=== PATIENT | male | born 1945 | race Caucasian/White ===

== ENCOUNTER 2016-06-30 17:54 | Inpatient (IN) | payer MEDICARE, MEDICAID ==
[~2016-06-30] VITALS: Ht 180.3 cm; Wt 58.0 kg
[~2016-06-30 17:54] MED LIST: ASPI-231 PO; CALC500C3 PO; LEVO500T3 PO; TRAM50TA2 PO; [UNRECOGNIZED DRUG - CODE] PO
[2016-06-30 18:49] LABS: Basophils # (auto) 0 uL; Basophils % (auto) 0.7 % (0.0-2.0); Eosinophils # (auto) 0.1 uL; Eosinophils % (auto) 2.8 % (0.0-7.0); Hematocrit 40.5 % (41.0-53.0); Hemoglobin 13.1 g/dL (13.5-17.5); Lymphocytes # (auto) 2.5 uL; Lymphocytes % (auto) 49.2 % (10.0-50.0); Mean Corpuscular Hemoglobin 29.1 pg (28.0-32.0); Mean Corpuscular Hgb Conc. 32.4 g/dL (32.0-36.0); Mean Platelet Volume 8.7 fL (7.4-10.4); Monocytes # (auto) 0.8 uL; Monocytes % (auto) 16.4 % (0.0-12.0); Neutrophils # (auto) 1.6 uL; Neutrophils % (auto) 30.9 % (37.0-80.0); Platelet Count (auto) 248 10^3/uL (140-450); Red Cell Distribution Width 14.7 % (11.6-16.0); White Blood Cell 5.1 10^3/uL (4.4-10.8)
[2016-06-30 19:14] LABS: Albumin 3.7 g/dL (3.4-5.0); Bilirubin, Total 0.3 mg/dL (0.2-1.0); Calcium 8.7 mg/dL (8.5-10.1); Potassium 4.2 mmol/L (3.5-5.1); Total Protein 7.4 g/dL (6.4-8.2)
[2016-07-01] MEDS ORDERED: ACET325T82 PO ×2 (06:22)
[2016-07-01] MEDS ORDERED: HYDROcodone-ACET 5/325MG TAB PO PRN (06:30)
[2016-07-01] MEDS ORDERED: ALBUTEROL SULF 2.5 MG/0.5ML(0.5%) NEB SOLN NEB PRN (06:30)
[2016-07-01] MEDS ORDERED: ACETAMINOPHEN 325 MG TAB PO PRN (06:30)
[2016-07-01] MEDS ORDERED: DOCUSATE SOD 100 MG CAP PO PRN (06:30)
[2016-07-01] MEDS ORDERED: ONDANSETRON HCL 4 MG/2 ML VIAL IV PRN (06:30)
[2016-07-01] MEDS ORDERED: IPRATROPIUM BROM 0.5 MG/2.5ML INH SOL NEB PRN (06:30)
[2016-07-01] MEDS ORDERED: traMADol HCL 50 MG TAB PO PRN (06:30)
[2016-07-01 07:58] VITALS: BP 110/74
[2016-07-01] MEDS: ENOXAPARIN SOD 40 MG/0.4 ML SYRINGE SC SCH (09:51)
[2016-07-01] MEDS: FAMOTIDINE 20 MG TAB PO SCH ×2 (09:51→21:46)
[2016-07-01] MEDS: ASPirin 81 mg TAB PO SCH (09:51)
[2016-07-01 13:00] VITALS: BP 120/65
[2016-07-01 15:59] VITALS: BP 120/65
[2016-07-01 17:00] VITALS: BP 104/67
[2016-07-01 21:12] VITALS: BP 101/63
[2016-07-01] MEDS: ATORVASTATIN 20 MG TAB PO SCH (21:46)
[2016-07-01] MEDS: FOLIC ACID 1 MG TAB PO SCH (21:46)
[2016-07-01] MEDS: CYANOCOBALAMIN 500 MCG TAB PO SCH (21:46)
[2016-07-01] MEDS: PYRIDOXINE HCL 50 MG TAB PO SCH (21:48)
[2016-07-02 05:22] VITALS: BP 102/59
[2016-07-02 06:09] LABS: Basophils # (auto) 0 uL; Basophils % (auto) 0.3 % (0.0-2.0); Eosinophils # (auto) 0.1 uL; Eosinophils % (auto) 1.9 % (0.0-7.0); Hematocrit 42.3 % (41.0-53.0); Hemoglobin 13.6 g/dL (13.5-17.5); Lymphocytes # (auto) 3.5 uL; Lymphocytes % (auto) 45.5 % (10.0-50.0); Mean Corpuscular Hgb Conc. 32.2 g/dL (32.0-36.0); Mean Corpuscular Volume 90.1 fL (80.0-100.0); Mean Platelet Volume 8.7 fL (7.4-10.4); Monocytes # (auto) 0.9 uL; Monocytes % (auto) 11.8 % (0.0-12.0); Neutrophils # (auto) 3.1 uL; Neutrophils % (auto) 40.5 % (37.0-80.0); Platelet Count (auto) 242 10^3/uL (140-450); Red Cell Distribution Width 14.9 % (11.6-16.0); White Blood Cell 7.7 10^3/uL (4.4-10.8)
[2016-07-02 06:28] LABS: Albumin 3.5 g/dL (3.4-5.0); BUN/Creatinine Ratio 17.6; Bilirubin, Total 0.4 mg/dL (0.2-1.0); Calcium 8.6 mg/dL (8.5-10.1); Potassium 4.3 mmol/L (3.5-5.1); Total Protein 7.2 g/dL (6.4-8.2)
[2016-07-02 08:21] LABS: Urine Bilirubin Negative (Negative); Urine Blood Negative /uL (Negative); Urine Color Yellow (Yellow); Urine Glucose Normal (Normal); Urine Ketone Negative (Negative); Urine RBC <1 /hpf (0 - 3); Urine Urobilinogen Normal (Negative); Urine pH 5.5 (5.0-8.0)
[2016-07-02 08:22] LABS: Urine Nitrite POSITIVE (Negative)
[2016-07-02 09:00] VITALS: BP_SYST 98; BP_SYST 99; BP_DIAS 68; BP_DIAS 76
[2016-07-02] MEDS: FAMOTIDINE 20 MG TAB PO SCH ×2 (10:00→20:59)
[2016-07-02] MEDS: PYRIDOXINE HCL 50 MG TAB PO SCH (10:00)
[2016-07-02] MEDS: ENOXAPARIN SOD 40 MG/0.4 ML SYRINGE SC SCH (10:48)
[2016-07-02] MEDS: ASPirin 81 mg TAB PO SCH (10:49)
[2016-07-02] MEDS: FOLIC ACID 1 MG TAB PO SCH (10:49)
[2016-07-02] MEDS: CYANOCOBALAMIN 500 MCG TAB PO SCH (10:49)
[2016-07-02] MEDS ORDERED: CIPR-217 PO ×2 (11:54)
[2016-07-02] MEDS ORDERED: ATOR10TA PO ×2 (11:54)
[2016-07-02 13:00] VITALS: BP 98/68
[2016-07-02 16:36] VITALS: BP 113/65
[2016-07-02] MEDS: ATORVASTATIN 20 MG TAB PO SCH (20:59)
[2016-07-02 21:55] VITALS: BP 118/76
[2016-07-02] MEDS: guaiFENesin-DEXTROMETHORPHAN 5ML SYR PO PRN (23:29)
[2016-07-03 05:30] VITALS: BP 100/67
[2016-07-03] MEDS: guaiFENesin-DEXTROMETHORPHAN 5ML SYR PO PRN (08:07)
[2016-07-03] MEDS: CYANOCOBALAMIN 500 MCG TAB PO SCH (08:08)
[2016-07-03] MEDS: FOLIC ACID 1 MG TAB PO SCH (08:08)
[2016-07-03] MEDS: PYRIDOXINE HCL 50 MG TAB PO SCH (08:08)
[2016-07-03] MEDS: ENOXAPARIN SOD 40 MG/0.4 ML SYRINGE SC SCH (08:09)
[2016-07-03] MEDS: FAMOTIDINE 20 MG TAB PO SCH (08:09)
[2016-07-03] MEDS: ASPirin 81 mg TAB PO SCH (08:09)
[2016-07-03 09:11] VITALS: BP 101/56
[2016-07-03 13:00] VITALS: BP 111/69
== END 2016-07-03 15:10 | disposition home or self-care (01) | DRG 191 ==
LOC: ER 17:57 → OVERFLOW 17:58 → TELE-E-ADS 07-01 07:53 → TELE-CENTR 07-01 11:57 → CENTRAL 07-03 02:49
PROVIDERS: ADMIT Nurse Practitioner; ATTEND Internal Medicine
DX: J44.1 Chronic obstructive pulmonary disease with (acute) exacerbation (principal); N39.0 Urinary tract infection, site not specified; R53.1 Weakness; H57.04 Mydriasis; M19.90 Unspecified osteoarthritis, unspecified site; G93.89 Other specified disorders of brain; D63.8 Anemia in other chronic diseases classified elsewhere; K21.9 Gastro-esophageal reflux disease without esophagitis; J45.909 Unspecified asthma, uncomplicated; A53.9 Syphilis, unspecified; Z79.82 Long term (current) use of aspirin; Z82.49 Family history of ischemic heart disease and other diseases of the circulatory system; Z83.3 Family history of diabetes mellitus; Z86.73 Personal history of transient ischemic attack (TIA), and cerebral infarction without residual deficits; Z82.0 Family history of epilepsy and other diseases of the nervous system; Z87.891 Personal history of nicotine dependence; Z88.0 Allergy status to penicillin; Z88.8 Allergy status to other drugs, medicaments and biological substances
CPT/HCPCS: 36415; 70450; 70551; 71020; 80053; 80061; 81001; 83090; 83690; 85025; 93005; 93306; 93886

== ENCOUNTER 2016-07-04 20:17 | Inpatient (IN) | payer MEDICARE, MEDICAID ==
[~2016-07-04] VITALS: Ht 180.3 cm; Wt 58.4 kg
[~2016-07-04 20:17] MED LIST changes: +ACET325T82 PO; +ATOR10TA PO; +CIPR-217 PO
[2016-07-04] MEDS ORDERED: ALBUTEROL SULF 2.5 MG/0.5ML(0.5%) NEB SOLN HHN STA (20:56)
[2016-07-04] MEDS ORDERED: IPRATROPIUM BROM 0.5 MG/2.5ML INH SOL NEB ONE (21:00)
[2016-07-04] MEDS ORDERED: methylPREDNISolone SOD SUCC 125 MG/2 ML VL IV ONE (21:00)
[2016-07-04] MEDS ORDERED: LEVOFLOXACIN 500MG 100 ML IV ONE (21:00)
[2016-07-04 21:03] LABS: Basophils # (auto) 0 uL; Basophils % (auto) 0.2 % (0.0-2.0); Eosinophils # (auto) 0 uL; Eosinophils % (auto) 0.1 % (0.0-7.0); Hematocrit 40.6 % (41.0-53.0); Hemoglobin 13.2 g/dL (13.5-17.5); Lymphocytes # (auto) 3.4 uL; Lymphocytes % (auto) 22.4 % (10.0-50.0); Mean Corpuscular Hgb Conc. 32.5 g/dL (32.0-36.0); Mean Corpuscular Volume 89.4 fL (80.0-100.0); Mean Platelet Volume 8.8 fL (7.4-10.4); Monocytes # (auto) 1.1 uL; Neutrophils # (auto) 10.7 uL; Neutrophils % (auto) 70.3 % (37.0-80.0); Platelet Count (auto) 219 10^3/uL (140-450); Red Cell Distribution Width 14.6 % (11.6-16.0); White Blood Cell 15.3 10^3/uL (4.4-10.8)
[2016-07-04 21:20] LABS: INR 1.05 (0.9-1.15); Partial Thromboplastin Time 33.4 sec (22.64-33.71); Prothrombin Time 10.8 sec (9.37-12.3)
[2016-07-04 21:33] LABS: Albumin 3.8 g/dL (3.4-5.0); BUN/Creatinine Ratio 26.4; Calcium 8.8 mg/dL (8.5-10.1); Potassium 4.2 mmol/L (3.5-5.1)
[2016-07-04 21:35] LABS: Bilirubin, Total 1.3 mg/dL (0.2-1.0); Total Protein 8.3 g/dL (6.4-8.2)
[2016-07-04] MEDS ORDERED: ONDANSETRON HCL 4 MG/2 ML VIAL IV PRN (22:30)
[2016-07-04] MEDS ORDERED: MORPHINE SULF INJ 2 MG/ML SYRINGE 1ML IV PRN (22:30)
[2016-07-04 23:30] VITALS: BP 131/75
[2016-07-05] VITALS (7 sets, daily range): BP systolic 102–147; BP diastolic 61–77
[2016-07-05] MEDS: SODIUM CHLORIDE 0.9% 1,000 ML IV SCH ×3 (00:45→11:33)
[2016-07-05] MEDS: IPRATROPIUM BROM 0.5 MG/2.5ML INH SOL NEB SCH ×6 (02:00→22:12)
[2016-07-05] MEDS: ALBUTEROL SULF 2.5 MG/0.5ML(0.5%) NEB SOLN NEB SCH ×6 (02:00→22:12)
[2016-07-05 06:01] LABS: Basophils # (auto) 0 uL; Basophils % (auto) 0.1 % (0.0-2.0); Eosinophils # (auto) 0 uL; Hematocrit 39.1 % (41.0-53.0); Hemoglobin 12.7 g/dL (13.5-17.5); Lymphocytes # (auto) 1.3 uL; Lymphocytes % (auto) 10.5 % (10.0-50.0); Mean Corpuscular Hemoglobin 29.3 pg (28.0-32.0); Mean Corpuscular Hgb Conc. 32.5 g/dL (32.0-36.0); Mean Corpuscular Volume 90.1 fL (80.0-100.0); Mean Platelet Volume 8.8 fL (7.4-10.4); Monocytes # (auto) 0.2 uL; Monocytes % (auto) 1.4 % (0.0-12.0); Neutrophils # (auto) 10.7 uL; Platelet Count (auto) 191 10^3/uL (140-450); Red Cell Distribution Width 14.1 % (11.6-16.0); White Blood Cell 12.1 10^3/uL (4.4-10.8)
[2016-07-05 06:27] LABS: Albumin 3.3 g/dL (3.4-5.0); BUN/Creatinine Ratio 26.5; Bilirubin, Total 0.8 mg/dL (0.2-1.0); Calcium 8.6 mg/dL (8.5-10.1); Potassium 5.1 mmol/L (3.5-5.1); Total Protein 7.1 g/dL (6.4-8.2)
[2016-07-05] MEDS: ASPirin 81 mg TAB PO SCH (09:55)
[2016-07-05] MEDS: ENOXAPARIN SOD 40 MG/0.4 ML SYRINGE SC SCH (09:56)
[2016-07-05] MEDS: PANTOPRAZOLE SODIUM 40 MG/10 ML VIAL IV SCH (09:56)
[2016-07-05] MEDS ORDERED: methylPREDNISolone SOD SUCC 40 MG/ML VL IV SCH (10:00)
[2016-07-05] MEDS ORDERED: ENOXAPARIN SOD 30 MG/0.3 ML SYRINGE SC SCH (10:00)
[2016-07-05] MEDS: LEVOFLOXACIN 500MG 100 ML IV SCH (20:47)
[2016-07-05] MEDS: ATORVASTATIN 20 MG TAB PO SCH (21:33)
[2016-07-05] MEDS: methylPREDNISolone SOD SUCC 40 MG/ML VL IV SCH (21:33)
[2016-07-06] MEDS: IPRATROPIUM BROM 0.5 MG/2.5ML INH SOL NEB SCH ×6 (02:19→21:54)
[2016-07-06] MEDS: ALBUTEROL SULF 2.5 MG/0.5ML(0.5%) NEB SOLN NEB SCH ×6 (02:19→21:54)
[2016-07-06] MEDS: SODIUM CHLORIDE 0.9% 1,000 ML IV SCH ×2 (04:13→20:53)
[2016-07-06 05:13] LABS: Basophils # (auto) 0.1 uL; Basophils % (auto) 0.4 % (0.0-2.0); Eosinophils # (auto) 0 uL; Hemoglobin 12.1 g/dL (13.5-17.5); Lymphocytes # (auto) 0.7 uL; Lymphocytes % (auto) 4.4 % (10.0-50.0); Mean Corpuscular Hemoglobin 30.3 pg (28.0-32.0); Mean Corpuscular Hgb Conc. 33.5 g/dL (32.0-36.0); Mean Corpuscular Volume 90.6 fL (80.0-100.0); Mean Platelet Volume 8.8 fL (7.4-10.4); Monocytes # (auto) 0.4 uL; Monocytes % (auto) 2.3 % (0.0-12.0); Neutrophils # (auto) 14.2 uL; Neutrophils % (auto) 92.9 % (37.0-80.0); Platelet Count (auto) 190 10^3/uL (140-450); Red Cell Distribution Width 13.3 % (11.6-16.0); SUSPECT VIEW TRANSMISSION; White Blood Cell 15.4 10^3/uL (4.4-10.8)
[2016-07-06 05:44] VITALS: BP 100/68
[2016-07-06 08:35] VITALS: BP 147/75
[2016-07-06] MEDS: ASPirin 81 mg TAB PO SCH (10:29)
[2016-07-06] MEDS: PANTOPRAZOLE SODIUM 40 MG/10 ML VIAL IV SCH (10:29)
[2016-07-06] MEDS: methylPREDNISolone SOD SUCC 40 MG/ML VL IV SCH ×2 (10:30→21:47)
[2016-07-06] MEDS: ENOXAPARIN SOD 40 MG/0.4 ML SYRINGE SC SCH (10:30)
[2016-07-06 12:30] VITALS: BP 110/57
[2016-07-06 16:24] VITALS: BP 112/72
[2016-07-06] MEDS: LEVOFLOXACIN 500MG 100 ML IV SCH (20:28)
[2016-07-06] MEDS: ATORVASTATIN 20 MG TAB PO SCH (21:47)
[2016-07-06 22:00] VITALS: BP 97/62
[2016-07-07] MEDS: IPRATROPIUM BROM 0.5 MG/2.5ML INH SOL NEB SCH ×3 (02:29→10:36)
[2016-07-07] MEDS: ALBUTEROL SULF 2.5 MG/0.5ML(0.5%) NEB SOLN NEB SCH ×3 (02:29→10:36)
[2016-07-07 05:57] VITALS: BP 119/66
[2016-07-07 06:28] LABS: Basophils # (auto) 0 uL; Eosinophils # (auto) 0 uL; Hematocrit 35.2 % (41.0-53.0); Hemoglobin 11.3 g/dL (13.5-17.5); Lymphocytes # (auto) 0.8 uL; Lymphocytes % (auto) 6.5 % (10.0-50.0); Mean Corpuscular Hemoglobin 29.1 pg (28.0-32.0); Mean Corpuscular Hgb Conc. 32.1 g/dL (32.0-36.0); Mean Corpuscular Volume 90.5 fL (80.0-100.0); Mean Platelet Volume 9.1 fL (7.4-10.4); Monocytes # (auto) 0.4 uL; Monocytes % (auto) 3.1 % (0.0-12.0); Neutrophils # (auto) 11.3 uL; Neutrophils % (auto) 90.4 % (37.0-80.0); Platelet Count (auto) 244 10^3/uL (140-450); Red Cell Distribution Width 14.4 % (11.6-16.0); White Blood Cell 12.6 10^3/uL (4.4-10.8)
[2016-07-07 06:41] LABS: INR 1.03 (0.9-1.15); Prothrombin Time 10.6 sec (9.37-12.3)
[2016-07-07 06:52] LABS: BUN/Creatinine Ratio 24.4; Calcium 8.5 mg/dL (8.5-10.1); Magnesium 2.4 mg/dL (1.6-2.6); Potassium 4.8 mmol/L (3.5-5.1)
[2016-07-07 09:23] VITALS: BP 112/77
[2016-07-07] MEDS: PANTOPRAZOLE SODIUM 40 MG/10 ML VIAL IV SCH (10:27)
[2016-07-07] MEDS: ASPirin 81 mg TAB PO SCH (10:28)
[2016-07-07] MEDS: ENOXAPARIN SOD 40 MG/0.4 ML SYRINGE SC SCH (10:28)
[2016-07-07] MEDS: methylPREDNISolone SOD SUCC 40 MG/ML VL IV SCH (10:28)
[2016-07-07 12:33] VITALS: BP 101/66
[2016-07-07 12:42] VITALS: BP 101/66
[2016-07-07] MEDS: SODIUM CHLORIDE 0.9% 1,000 ML IV SCH (13:33)
[2016-07-07] MEDS ORDERED: DOPamine 1600MCG/ML 250 ML IV ONE (13:44)
== END 2016-07-07 14:45 | disposition home or self-care (01) | DRG 193 ==
LOC: ER 20:22 → OVERFLOW 20:23 → CENTRAL 07-05 00:07
PROVIDERS: ADMIT Family Medicine; ATTEND Internal Medicine
DX: J18.9 Pneumonia, unspecified organism (principal); J96.00 Acute respiratory failure, unspecified whether with hypoxia or hypercapnia; J44.0 Chronic obstructive pulmonary disease with (acute) lower respiratory infection; J20.9 Acute bronchitis, unspecified; J45.909 Unspecified asthma, uncomplicated; E78.5 Hyperlipidemia, unspecified; M19.90 Unspecified osteoarthritis, unspecified site; I25.2 Old myocardial infarction; Z87.440 Personal history of urinary (tract) infections; Z86.73 Personal history of transient ischemic attack (TIA), and cerebral infarction without residual deficits; Z59.0 Homelessness
CPT/HCPCS: 36415; 70450; 71010; 80048; 80053; 80061; 83605; 83735; 84484; 85025; 85049; 85379; 85610; 85730; 87040; 87070; 87081; 87205; 87400; 93005; 94640; 94761; 96365; 96375; C9113; G0434; J1956

== ENCOUNTER 2016-07-30 19:50 | Emergency (ER) | payer MEDICARE, MEDICAID ==
[~2016-07-30] VITALS: Ht 180.3 cm; Wt 63.5 kg
[~2016-07-30 19:50] MED LIST changes: -LEVO500T3 PO; -TRAM50TA2 PO; -[UNRECOGNIZED DRUG - CODE] PO
[2016-07-30 21:53] LABS: Basophils # (auto) 0 uL; Basophils % (auto) 0.3 % (0.0-2.0); Eosinophils # (auto) 0.2 uL; Eosinophils % (auto) 2.5 % (0.0-7.0); Hematocrit 36.3 % (41.0-53.0); Hemoglobin 11.4 g/dL (13.5-17.5); Lymphocytes # (auto) 2.7 uL; Mean Corpuscular Hemoglobin 28.8 pg (28.0-32.0); Mean Corpuscular Hgb Conc. 31.5 g/dL (32.0-36.0); Mean Corpuscular Volume 91.4 fL (80.0-100.0); Mean Platelet Volume 8.9 fL (7.4-10.4); Monocytes # (auto) 0.8 uL; Monocytes % (auto) 8.2 % (0.0-12.0); Neutrophils # (auto) 6.1 uL; Platelet Count (auto) 211 10^3/uL (140-450); Red Cell Distribution Width 15.3 % (11.6-16.0); White Blood Cell 9.9 10^3/uL (4.4-10.8)
[2016-07-30 22:16] LABS: Albumin 3.4 g/dL (3.4-5.0); Bilirubin, Total 0.9 mg/dL (0.2-1.0); Calcium 8.3 mg/dL (8.5-10.1); Magnesium 2.4 mg/dL (1.6-2.6)
[2016-07-31 03:47] VITALS: BP 104/70
== END 2016-07-31 03:51 | disposition home or self-care (01) ==
LOC: ER 20:22
DX: K59.00 Constipation, unspecified (principal); M19.90 Unspecified osteoarthritis, unspecified site; J45.909 Unspecified asthma, uncomplicated; J44.9 Chronic obstructive pulmonary disease, unspecified; E78.5 Hyperlipidemia, unspecified; I25.2 Old myocardial infarction; Z86.73 Personal history of transient ischemic attack (TIA), and cerebral infarction without residual deficits; Z88.0 Allergy status to penicillin; Z88.8 Allergy status to other drugs, medicaments and biological substances
CPT/HCPCS: 36415; 74176; 80053; 83735; 84484; 85025; 93005

== ENCOUNTER 2016-08-01 18:43 | Emergency (ER) | payer MEDICARE, MEDICAID ==
[~2016-08-01] VITALS: Ht 180.3 cm; Wt 64.4 kg
[2016-08-01 22:42] LABS: Basophils # (auto) 0 uL; Basophils % (auto) 0.6 % (0.0-2.0); Eosinophils # (auto) 0.2 uL; Eosinophils % (auto) 3.7 % (0.0-7.0); Hemoglobin 11.3 g/dL (13.5-17.5); Lymphocytes # (auto) 1.9 uL; Lymphocytes % (auto) 30.5 % (10.0-50.0); Mean Corpuscular Hemoglobin 28.6 pg (28.0-32.0); Mean Corpuscular Hgb Conc. 31.3 g/dL (32.0-36.0); Mean Corpuscular Volume 91.4 fL (80.0-100.0); Monocytes # (auto) 0.7 uL; Monocytes % (auto) 10.9 % (0.0-12.0); Neutrophils # (auto) 3.4 uL; Neutrophils % (auto) 54.3 % (37.0-80.0); Platelet Count (auto) 229 10^3/uL (140-450); Red Cell Distribution Width 15.3 % (11.6-16.0); White Blood Cell 6.3 10^3/uL (4.4-10.8)
[2016-08-01] MEDS ORDERED: MORPHINE SULF INJ 2 MG/ML SYRINGE 1ML IV ONE (22:45)
[2016-08-01] MEDS ORDERED: ONDANSETRON HCL 4 MG/2 ML VIAL IV ONE (22:45)
[2016-08-01 22:57] LABS: Albumin 3.4 g/dL (3.4-5.0); BUN/Creatinine Ratio 19.8; Calcium 8.2 mg/dL (8.5-10.1); Potassium 3.6 mmol/L (3.5-5.1)
[2016-08-01 23:00] LABS: Bilirubin, Total 0.5 mg/dL (0.2-1.0); Total Protein 6.8 g/dL (6.4-8.2)
[2016-08-01 23:19] LABS: Urine Bilirubin Negative (Negative); Urine Blood Negative /uL (Negative); Urine Color Yellow (Yellow); Urine Glucose Normal (Normal); Urine Ketone Negative (Negative); Urine Mucus FEW (None Seen); Urine Nitrite Negative (Negative); Urine RBC 1 /hpf (0 - 3); Urine Urobilinogen Normal (Negative); Urine pH 5.5 (5.0-8.0)
[2016-08-02 01:07] VITALS: BP 111/72
[2016-08-02] MEDS ORDERED: cefTRIAXone 1GM/50ML D5W 50 ML IV ONE ×2 (02:00→02:14)
== END 2016-08-02 02:52 | disposition home or self-care (01) ==
LOC: ER 18:44
DX: N45.2 Orchitis (principal); N43.3 Hydrocele, unspecified; K59.00 Constipation, unspecified; N20.0 Calculus of kidney; M19.90 Unspecified osteoarthritis, unspecified site; J44.9 Chronic obstructive pulmonary disease, unspecified; J45.909 Unspecified asthma, uncomplicated; E78.5 Hyperlipidemia, unspecified; I25.2 Old myocardial infarction; Z98.890 Other specified postprocedural states; Z88.0 Allergy status to penicillin; Z86.73 Personal history of transient ischemic attack (TIA), and cerebral infarction without residual deficits; Z88.6 Allergy status to analgesic agent
CPT/HCPCS: 36415; 74176; 76870; 80053; 81001; 85025; 94761; 96365; 96375; 99285; J0696; J2270; J2405

== ENCOUNTER 2016-08-07 18:36 | Emergency (ER) | payer MEDICARE, MEDICAID ==
[~2016-08-07] VITALS: Ht 180.3 cm; Wt 63.5 kg
[2016-08-08 05:01] LABS: Basophils # (auto) 0.1 uL; Basophils % (auto) 0.5 % (0.0-2.0); Eosinophils # (auto) 0.1 uL; Hematocrit 36.9 % (41.0-53.0); Hemoglobin 11.7 g/dL (13.5-17.5); Lymphocytes # (auto) 2.1 uL; Lymphocytes % (auto) 18.9 % (10.0-50.0); Mean Corpuscular Hemoglobin 28.6 pg (28.0-32.0); Mean Corpuscular Hgb Conc. 31.6 g/dL (32.0-36.0); Mean Corpuscular Volume 90.3 fL (80.0-100.0); Mean Platelet Volume 8.3 fL (7.4-10.4); Monocytes # (auto) 1.1 uL; Monocytes % (auto) 9.9 % (0.0-12.0); Neutrophils # (auto) 7.9 uL; Neutrophils % (auto) 69.7 % (37.0-80.0); Platelet Count (auto) 290 10^3/uL (140-450); Red Cell Distribution Width 14.7 % (11.6-16.0); White Blood Cell 11.4 10^3/uL (4.4-10.8)
[2016-08-08 05:22] LABS: Albumin 3.3 g/dL (3.4-5.0); BUN/Creatinine Ratio 15.9; Calcium 8.5 mg/dL (8.5-10.1); Potassium 4.7 mmol/L (3.5-5.1)
[2016-08-08 05:25] LABS: Total Protein 6.8 g/dL (6.4-8.2)
[2016-08-08 07:02] LABS: Urine Bilirubin Negative (Negative); Urine Blood Negative /uL (Negative); Urine Color Yellow (Yellow); Urine Glucose Normal (Normal); Urine Ketone Negative (Negative); Urine Nitrite Negative (Negative); Urine RBC 1 /hpf (0 - 3); Urine Squamous Epithelial Cell FEW /hpf (<5); Urine Urobilinogen Normal (Negative)
[2016-08-08] MEDS ORDERED: cefTRIAXone SOD 1,000 MG VL IM ONE (10:00)
[2016-08-08 10:09] VITALS: BP 118/74
== END 2016-08-08 10:41 | disposition home or self-care (01) ==
LOC: ER 18:43
DX: N45.1 Epididymitis (principal); N43.3 Hydrocele, unspecified; N50.3 Cyst of epididymis; J44.9 Chronic obstructive pulmonary disease, unspecified; E78.5 Hyperlipidemia, unspecified; I25.2 Old myocardial infarction; Z86.73 Personal history of transient ischemic attack (TIA), and cerebral infarction without residual deficits; Z79.82 Long term (current) use of aspirin; Z79.899 Other long term (current) drug therapy; Z88.1 Allergy status to other antibiotic agents
CPT/HCPCS: 36415; 76870; 80053; 81001; 85025; 96372; 99285; J0696

== ENCOUNTER 2016-08-15 23:55 | Emergency (ER) | payer MEDICARE, MEDICAID ==
[~2016-08-15] VITALS: Ht 180.3 cm; Wt 68.0 kg
[2016-08-16 01:25] LABS: Albumin 3.3 g/dL (3.4-5.0); Anion Gap 7 (5-15); Aspartate Aminotransferase 20 U/L (15-37); BUN/Creatinine Ratio 16.4; Blood Urea Nitrogen 19 mg/dL (7-18); Calcium 8.6 mg/dL (8.5-10.1); Carbon Dioxide 26 mmol/L (21-32); Chloride 108 mmol/L (98-107); GFR African American 80 mL/min; GFR Non-African American 66 mL/min; Glucose 101 mg/dL (74-106); Magnesium 2.6 mg/dL (1.6-2.6); Potassium 4.4 mmol/L (3.5-5.1); Sodium 141 mmol/L (136-145)
[2016-08-16 01:27] LABS: Hemoglobin 11.7 g/dL (13.5-17.5)
[2016-08-16 01:30] LABS: Alkaline Phosphatase 84 U/L (45-117); Bilirubin, Total 0.3 mg/dL (0.2-1.0); Total Protein 6.5 g/dL (6.4-8.2)
[2016-08-16 01:31] LABS: Basophils # (auto) 0.1 uL; Eosinophils # (auto) 0.2 uL; Eosinophils % (auto) 2.7 % (0.0-7.0); Hematocrit 34.6 % (41.0-53.0); Lymphocytes # (auto) 2.2 uL; Lymphocytes % (auto) 33.9 % (10.0-50.0); Mean Corpuscular Hemoglobin 30.3 pg (28.0-32.0); Mean Corpuscular Hgb Conc. 33.8 g/dL (32.0-36.0); Mean Corpuscular Volume 89.5 fL (80.0-100.0); Mean Platelet Volume 8.8 fL (7.4-10.4); Monocytes # (auto) 0.8 uL; Monocytes % (auto) 12.3 % (0.0-12.0); Neutrophils # (auto) 3.3 uL; Neutrophils % (auto) 49.1 % (37.0-80.0); Platelet Count (auto) 262 10^3/uL (140-450); Red Cell Distribution Width 14.1 % (11.6-16.0); White Blood Cell 6.6 10^3/uL (4.4-10.8)
[2016-08-16 02:36] LABS: Urine Bilirubin Negative (Negative); Urine Blood Negative /uL (Negative); Urine Color Yellow (Yellow); Urine Glucose Normal (Normal); Urine Ketone Negative (Negative); Urine Nitrite Negative (Negative); Urine RBC 1 /hpf (0 - 3); Urine Urobilinogen Normal (Negative)
[2016-08-16 08:49] VITALS: BP 145/99
== END 2016-08-16 09:37 | disposition home or self-care (01) ==
LOC: ER 08-16 00:06
DX: I10 Essential (primary) hypertension (principal); R53.1 Weakness; I25.2 Old myocardial infarction; Z86.73 Personal history of transient ischemic attack (TIA), and cerebral infarction without residual deficits; M19.90 Unspecified osteoarthritis, unspecified site; J44.9 Chronic obstructive pulmonary disease, unspecified; E78.5 Hyperlipidemia, unspecified; Z87.440 Personal history of urinary (tract) infections; Z88.1 Allergy status to other antibiotic agents; Z79.82 Long term (current) use of aspirin; Z79.899 Other long term (current) drug therapy
CPT/HCPCS: 36415; 71010; 80053; 81001; 83735; 84484; 85025; 93005

== ENCOUNTER 2016-10-01 22:03 | Emergency (ER) | payer MEDICARE, MEDICAID ==
[~2016-10-01] VITALS: Ht 180.3 cm; Wt 59.0 kg
[2016-10-01 22:44] LABS: Basophils # (auto) 0 uL; Basophils % (auto) 0.4 % (0.0-2.0); Eosinophils # (auto) 0.2 uL; Eosinophils % (auto) 2.5 % (0.0-7.0); Hematocrit 40.2 % (41.0-53.0); Hemoglobin 13.3 g/dL (13.5-17.5); Lymphocytes # (auto) 2.5 uL; Lymphocytes % (auto) 34.4 % (10.0-50.0); Mean Corpuscular Hgb Conc. 33.1 g/dL (32.0-36.0); Mean Corpuscular Volume 90.8 fL (80.0-100.0); Mean Platelet Volume 8.6 fL (7.4-10.4); Monocytes # (auto) 0.7 uL; Monocytes % (auto) 10.1 % (0.0-12.0); Neutrophils # (auto) 3.9 uL; Neutrophils % (auto) 52.6 % (37.0-80.0); Platelet Count (auto) 245 10^3/uL (140-450); Red Cell Distribution Width 14.7 % (11.6-16.0); White Blood Cell 7.4 10^3/uL (4.4-10.8)
[2016-10-01 23:05] LABS: Albumin 3.9 g/dL (3.4-5.0); Alkaline Phosphatase 94 U/L (45-117); Anion Gap 9 (5-15); Aspartate Aminotransferase 24 U/L (15-37); BUN/Creatinine Ratio 17.1; Bilirubin, Total 0.3 mg/dL (0.2-1.0); Blood Urea Nitrogen 20 mg/dL (7-18); Calcium 9.7 mg/dL (8.5-10.1); Carbon Dioxide 28 mmol/L (21-32); Chloride 106 mmol/L (98-107); GFR African American 79 mL/min; GFR Non-African American 65 mL/min; Glucose 104 mg/dL (74-106); Magnesium 2.3 mg/dL (1.6-2.6); Potassium 4.3 mmol/L (3.5-5.1); Sodium 143 mmol/L (136-145); Total Protein 7.4 g/dL (6.4-8.2)
[2016-10-01 23:24] LABS: INR 0.99 (0.9-1.15); Partial Thromboplastin Time 26.8 sec (22.64-33.71); Prothrombin Time 10.7 sec (9.37-12.3)
[2016-10-01 23:29] LABS: Urine Squamous Epithelial Cell None Seen /hpf (<5)
[2016-10-01 23:44] LABS: Urine Bilirubin Negative (Negative); Urine Blood Negative /uL (Negative); Urine Color Yellow (Yellow); Urine Glucose Normal (Normal); Urine Ketone Negative (Negative); Urine Nitrite Negative (Negative); Urine Urobilinogen Normal (Negative); Urine pH 6.5 (5.0-8.0)
[2016-10-01 23:45] LABS: Urine RBC <1 /hpf (0 - 3)
[2016-10-02 04:26] VITALS: BP 107/58
== END 2016-10-02 04:59 | disposition home or self-care (01) ==
LOC: ER 22:04
DX: F41.9 Anxiety disorder, unspecified (principal); M19.90 Unspecified osteoarthritis, unspecified site; J44.9 Chronic obstructive pulmonary disease, unspecified; I10 Essential (primary) hypertension; I25.2 Old myocardial infarction; J45.909 Unspecified asthma, uncomplicated; Z87.440 Personal history of urinary (tract) infections; Z88.1 Allergy status to other antibiotic agents
CPT/HCPCS: 36415; 71010; 80053; 81001; 83735; 83880; 84484; 85025; 85379; 85610; 85730; 93005

== ENCOUNTER 2016-10-07 21:48 | Emergency (ER) | payer MEDICARE, MEDICAID ==
[~2016-10-07] VITALS: Ht 180.3 cm; Wt 59.0 kg
[2016-10-07 22:21] LABS: Basophils # (auto) 0.1 uL; Basophils % (auto) 0.7 % (0.0-2.0); Eosinophils # (auto) 0.2 uL; Eosinophils % (auto) 2.9 % (0.0-7.0); Hematocrit 40.5 % (41.0-53.0); Hemoglobin 13.2 g/dL (13.5-17.5); Lymphocytes # (auto) 2.5 uL; Lymphocytes % (auto) 33.7 % (10.0-50.0); Mean Corpuscular Hemoglobin 29.5 pg (28.0-32.0); Mean Corpuscular Hgb Conc. 32.5 g/dL (32.0-36.0); Mean Corpuscular Volume 90.7 fL (80.0-100.0); Mean Platelet Volume 8.9 fL (7.4-10.4); Monocytes # (auto) 0.6 uL; Neutrophils % (auto) 54.7 % (37.0-80.0); Platelet Count (auto) 223 10^3/uL (140-450); Red Cell Distribution Width 14.7 % (11.6-16.0); White Blood Cell 7.4 10^3/uL (4.4-10.8)
[2016-10-07 22:44] LABS: Albumin 3.8 g/dL (3.4-5.0); Anion Gap 8 (5-15); Aspartate Aminotransferase 28 U/L (15-37); Blood Urea Nitrogen 19 mg/dL (7-18); Calcium 8.3 mg/dL (8.5-10.1); Carbon Dioxide 27 mmol/L (21-32); Chloride 106 mmol/L (98-107); GFR African American 83 mL/min; GFR Non-African American 68 mL/min; Glucose 115 mg/dL (74-106); Magnesium 2.5 mg/dL (1.6-2.6); Potassium 3.6 mmol/L (3.5-5.1); Sodium 141 mmol/L (136-145)
[2016-10-07 22:49] LABS: Alkaline Phosphatase 89 U/L (45-117); Bilirubin, Total 0.4 mg/dL (0.2-1.0); Total Protein 7.1 g/dL (6.4-8.2)
[2016-10-07 23:01] LABS: B-Type Natriuretic Peptide 44.12 pg/mL (0-100)
[2016-10-07 23:08] LABS: Temperature: 22.9 C (20.0-25.0)
[2016-10-08] MEDS ORDERED: IPRATROPIUM BROM 0.5 MG/2.5ML INH SOL NEB ONE (03:30)
[2016-10-08] MEDS ORDERED: ALBUTEROL SULF 2.5 MG/0.5ML(0.5%) NEB SOLN NEB ONE (03:30)
[2016-10-08 04:35] VITALS: BP 141/57
== END 2016-10-08 05:05 | disposition home or self-care (01) ==
LOC: ER 22:10
DX: J44.9 Chronic obstructive pulmonary disease, unspecified (principal); M19.90 Unspecified osteoarthritis, unspecified site; E78.5 Hyperlipidemia, unspecified; I25.2 Old myocardial infarction; Z87.440 Personal history of urinary (tract) infections
CPT/HCPCS: 36415; 71010; 80053; 83735; 83880; 84443; 84484; 85025; 93005; 94640

== ENCOUNTER 2016-10-30 16:53 | Emergency (ER) | payer MEDICARE, MEDICAID ==
[~2016-10-30] VITALS: Ht 170.2 cm; Wt 59.0 kg
[2016-10-30 18:42] LABS: Basophils # (auto) 0.1 uL; Basophils % (auto) 0.8 % (0.0-2.0); Eosinophils # (auto) 0.2 uL; Hematocrit 41.2 % (41.0-53.0); Hemoglobin 13.5 g/dL (13.5-17.5); Lymphocytes # (auto) 2.5 uL; Lymphocytes % (auto) 35.7 % (10.0-50.0); Mean Corpuscular Hemoglobin 29.9 pg (28.0-32.0); Mean Corpuscular Hgb Conc. 32.8 g/dL (32.0-36.0); Mean Corpuscular Volume 91.1 fL (80.0-100.0); Mean Platelet Volume 9.3 fL (7.4-10.4); Monocytes # (auto) 0.6 uL; Neutrophils # (auto) 3.6 uL; Neutrophils % (auto) 51.5 % (37.0-80.0); Platelet Count (auto) 225 10^3/uL (140-450); Red Cell Distribution Width 14.4 % (11.6-16.0); White Blood Cell 6.9 10^3/uL (4.4-10.8)
[2016-10-30 18:54] LABS: Albumin 4.3 g/dL (3.4-5.0); Anion Gap 8 (5-15); Aspartate Aminotransferase 24 U/L (15-37); Blood Urea Nitrogen 16 mg/dL (7-18); Calcium 9.1 mg/dL (8.5-10.1); Carbon Dioxide 27 mmol/L (21-32); Chloride 106 mmol/L (98-107); GFR African American 74 mL/min; GFR Non-African American 61 mL/min; Glucose 96 mg/dL (74-106); Potassium 4.4 mmol/L (3.5-5.1); Sodium 141 mmol/L (136-145)
[2016-10-30 19:10] LABS: Alkaline Phosphatase 76 U/L (45-117); Bilirubin, Total 0.8 mg/dL (0.2-1.0); Total Protein 7.4 g/dL (6.4-8.2)
[2016-10-30] MEDS ORDERED: IPRATROPIUM BROM 0.5 MG/2.5ML INH SOL HHN ONE (21:30)
[2016-10-30] MEDS ORDERED: ALBUTEROL SULF 2.5 MG/0.5ML(0.5%) NEB SOLN HHN ONE (21:30)
[2016-10-30] MEDS ORDERED: KETOROLAC TROMETH 30 MG/ML 1ML VIAL IV ONE (21:30)
[2016-10-30 22:42] VITALS: BP 109/64
== END 2016-10-30 22:49 | disposition home or self-care (01) ==
LOC: ER 17:00
DX: J44.9 Chronic obstructive pulmonary disease, unspecified (principal); Z86.73 Personal history of transient ischemic attack (TIA), and cerebral infarction without residual deficits; I25.2 Old myocardial infarction; M19.90 Unspecified osteoarthritis, unspecified site; Z87.440 Personal history of urinary (tract) infections
CPT/HCPCS: 36415; 71020; 80053; 84484; 85025; 93005; 94640; 96374; 99285; J1885

== ENCOUNTER 2016-12-31 20:48 | Emergency (ER) | payer MEDICARE, MEDICAID ==
[~2016-12-31] VITALS: Ht 180.3 cm; Wt 63.5 kg
[2016-12-31 21:19] VITALS: BP 150/77
== END 2017-01-01 06:01 | disposition left against medical advice (07) ==
LOC: ER 20:59
DX: R53.1 Weakness (principal); R20.0 Anesthesia of skin; Z53.21 Procedure and treatment not carried out due to patient leaving prior to being seen by health care provider
CPT/HCPCS: 70450

== ENCOUNTER 2017-01-11 23:59 | Emergency (ER) | payer MEDICARE, MEDICAID ==
[~2017-01-11] VITALS: Ht 180.3 cm; Wt 77.1 kg
[2017-01-12 00:20] VITALS: BP 145/90
[2017-01-12 01:13] LABS: Basophils # (auto) 0 uL; Basophils % (auto) 0.5 % (0.0-2.0); CONDITION Y; Eosinophils # (auto) 0.2 uL; Eosinophils % (auto) 3.2 % (0.0-7.0); Hematocrit 40.8 % (41.0-53.0); Hemoglobin 13.8 g/dL (13.5-17.5); Lymphocytes % (auto) 29.8 % (10.0-50.0); Mean Corpuscular Hemoglobin 31.3 pg (28.0-32.0); Mean Corpuscular Hgb Conc. 33.9 g/dL (32.0-36.0); Mean Corpuscular Volume 92.2 fL (80.0-100.0); Mean Platelet Volume 9.1 fL (7.4-10.4); Monocytes # (auto) 0.6 uL; Monocytes % (auto) 9.1 % (0.0-12.0); Neutrophils # (auto) 3.9 uL; Neutrophils % (auto) 57.4 % (37.0-80.0); Platelet Count (auto) 212 10^3/uL (140-450); Red Cell Distribution Width 14.4 % (11.6-16.0); White Blood Cell 6.8 10^3/uL (4.4-10.8)
[2017-01-12 01:28] LABS: Albumin 3.9 g/dL (3.4-5.0); Anion Gap 8 (5-15); Aspartate Aminotransferase 23 U/L (15-37); BUN/Creatinine Ratio 20.2; Blood Urea Nitrogen 24 mg/dL (7-18); Calcium 9.3 mg/dL (8.5-10.1); Carbon Dioxide 27 mmol/L (21-32); Chloride 108 mmol/L (98-107); GFR African American 77 mL/min; GFR Non-African American 64 mL/min; Glucose 89 mg/dL (74-106); Magnesium 2.7 mg/dL (1.6-2.6); Sodium 143 mmol/L (136-145)
[2017-01-12 01:33] LABS: Alkaline Phosphatase 89 U/L (45-117); Bilirubin, Total 0.5 mg/dL (0.2-1.0); Total Protein 7.6 g/dL (6.4-8.2)
== END 2017-01-12 07:40 | disposition left against medical advice (07) ==
LOC: ER 01-12 00:09
DX: R55 Syncope and collapse (principal); Z53.21 Procedure and treatment not carried out due to patient leaving prior to being seen by health care provider
CPT/HCPCS: 36415; 80053; 83735; 84484; 85025; 93005

== ENCOUNTER 2017-04-24 18:36 | Emergency (ER) | payer MEDICARE, MEDICAID ==
[~2017-04-24] VITALS: Ht 180.3 cm; Wt 63.5 kg
[2017-04-24 19:00] VITALS: BP 130/108
[2017-04-24 19:29] LABS: Basophils # (auto) 0 uL; Basophils % (auto) 0.7 % (0.0-2.0); Eosinophils # (auto) 0.3 uL; Eosinophils % (auto) 3.6 % (0.0-7.0); Hemoglobin 14.2 g/dL (13.5-17.5); Lymphocytes # (auto) 2.1 uL; Lymphocytes % (auto) 29.7 % (10.0-50.0); Mean Corpuscular Hemoglobin 31.8 pg (28.0-32.0); Mean Corpuscular Hgb Conc. 33.9 g/dL (32.0-36.0); Monocytes # (auto) 0.8 uL; Monocytes % (auto) 11.5 % (0.0-12.0); Neutrophils # (auto) 3.9 uL; Neutrophils % (auto) 54.5 % (37.0-80.0); Platelet Count (auto) 213 10^3/uL (140-450); Red Blood Cells 4.47 10^6/uL (4.5-5.90); Red Cell Distribution Width 13.4 % (11.8-14.3); White Blood Cell 7.1 10^3/uL (4.4-10.8)
[2017-04-24 19:49] LABS: Alanine Aminotransferase 24 U/L (16-61); Albumin 3.9 g/dL (3.4-5.0); Alkaline Phosphatase 96 U/L (45-117); Anion Gap 7 (5-15); Aspartate Aminotransferase 27 U/L (15-37); BUN/Creatinine Ratio 17.6; Bilirubin, Total 0.4 mg/dL (0.2-1.0); Blood Urea Nitrogen 19 mg/dL (7-18); Calcium 8.7 mg/dL (8.5-10.1); Carbon Dioxide 28 mmol/L (21-32); Chloride 103 mmol/L (98-107); GFR African American 86 mL/min; GFR Non-African American 71 mL/min; Glucose 105 mg/dL (74-106); Potassium 4.2 mmol/L (3.5-5.1); Sodium 138 mmol/L (136-145); Total Protein 7.7 g/dL (6.4-8.2)
== END 2017-04-25 04:46 | disposition left against medical advice (07) ==
LOC: ER 18:36
DX: R07.9 Chest pain, unspecified (principal); Z53.21 Procedure and treatment not carried out due to patient leaving prior to being seen by health care provider
CPT/HCPCS: 36415; 71020; 80053; 84484; 85025; 93005

== ENCOUNTER 2017-07-11 16:07 | Emergency (ER) | payer MEDICARE, MEDICAID ==
[~2017-07-11] VITALS: Ht 180.3 cm; Wt 62.1 kg
[2017-07-11 16:38] VITALS: BP 142/91
== END 2017-07-11 20:29 | disposition home or self-care (01) ==
LOC: ER 16:12
DX: K02.9 Dental caries, unspecified (principal); J44.9 Chronic obstructive pulmonary disease, unspecified; E78.5 Hyperlipidemia, unspecified; I25.2 Old myocardial infarction; Z86.73 Personal history of transient ischemic attack (TIA), and cerebral infarction without residual deficits; Z88.1 Allergy status to other antibiotic agents; Z88.8 Allergy status to other drugs, medicaments and biological substances
CPT/HCPCS: 93005

== ENCOUNTER 2017-10-07 17:25 | Emergency (ER) | payer MEDICARE, MEDICAID ==
[~2017-10-07] VITALS: Ht 180.3 cm; Wt 59.0 kg
[2017-10-07 18:59] LABS: Basophils # (auto) 0 uL; Basophils % (auto) 0.6 % (0.0-2.0); Eosinophils # (auto) 0.2 uL; Eosinophils % (auto) 2.6 % (0.0-7.0); Hematocrit 42.2 % (41.0-53.0); Hemoglobin 14.2 g/dL (13.5-17.5); Lymphocytes # (auto) 1.8 uL; Lymphocytes % (auto) 27.2 % (10.0-50.0); Mean Corpuscular Hgb Conc. 33.7 g/dL (32.0-36.0); Monocytes # (auto) 0.6 uL; Monocytes % (auto) 9.6 % (0.0-12.0); Nucleated Red Blood Cells % 0.1 %; Platelet Count (auto) 246 10^3/uL (140-450); Red Blood Cells 4.59 10^6/uL (4.5-5.90); Red Cell Distribution Width 13.5 % (11.8-14.3); White Blood Cell 6.6 10^3/uL (4.4-10.8)
[2017-10-07 19:11] LABS: BUN/Creatinine Ratio 13.4; Calcium 9.3 mg/dL (8.5-10.1); Potassium 4.5 mmol/L (3.5-5.1)
[2017-10-07 19:14] LABS: Bilirubin, Total 0.4 mg/dL (0.2-1.0); Total Protein 7.7 g/dL (6.4-8.2)
[2017-10-07] MEDS ORDERED: SODIUM CHLORIDE 0.9% 1,000 ML IV ONE (19:45)
[2017-10-07 20:48] LABS: Magnesium 2.4 mg/dL (1.6-2.6)
[2017-10-07 20:50] LABS: INR 0.96 (0.9-1.15); Prothrombin Time 10.5 sec (9.37-12.3)
[2017-10-07 21:32] LABS: Urine Bacteria NONE SEEN /hpf (None Seen); Urine Blood Negative /uL (Negative); Urine WBC 1 /hpf (0 - 3)
[2017-10-07 22:05] VITALS: BP 122/73
== END 2017-10-07 22:40 | disposition home or self-care (01) ==
LOC: ER 17:27
DX: K40.90 Unilateral inguinal hernia, without obstruction or gangrene, not specified as recurrent (principal); M19.90 Unspecified osteoarthritis, unspecified site; J44.9 Chronic obstructive pulmonary disease, unspecified; E78.5 Hyperlipidemia, unspecified; I10 Essential (primary) hypertension; Z87.440 Personal history of urinary (tract) infections; Z88.0 Allergy status to penicillin; Z88.1 Allergy status to other antibiotic agents; Z79.82 Long term (current) use of aspirin
CPT/HCPCS: 36415; 74176; 80053; 81001; 82150; 83605; 83690; 83735; 85025; 85610; 85730; 93005; 96360

== ENCOUNTER 2017-12-18 23:18 | Observation (INO) | payer MEDICARE, MEDICAID ==
[~2017-12-18] VITALS: Ht 165.1 cm; Wt 77.1 kg
[2017-12-19 00:21] LABS: Basophils # (auto) 0 uL; Basophils % (auto) 0.4 % (0.0-2.0); Eosinophils # (auto) 0 uL; Eosinophils % (auto) 0.3 % (0.0-7.0); Hematocrit 42.8 % (41.0-53.0); Hemoglobin 14.1 g/dL (13.5-17.5); Lymphocytes # (auto) 1.5 uL; Lymphocytes % (auto) 17.1 % (10.0-50.0); Mean Corpuscular Hemoglobin 29.9 pg (28.0-32.0); Mean Corpuscular Volume 90.7 fL (80.0-100.0); Monocytes # (auto) 0.4 uL; Neutrophils % (auto) 78.2 % (37.0-80.0); Platelet Count (auto) 239 10^3/uL (140-450); Red Blood Cells 4.72 10^6/uL (4.5-5.90); Red Cell Distribution Width 14.1 % (11.8-14.3)
[2017-12-19 00:32] LABS: Alanine Aminotransferase 22 U/L (16-61); Albumin 3.9 g/dL (3.4-5.0); Anion Gap 10 (5-15); Aspartate Aminotransferase 18 U/L (15-37); BUN/Creatinine Ratio 17.8; Blood Urea Nitrogen 23 mg/dL (7-18); Calcium 9.2 mg/dL (8.5-10.1); Carbon Dioxide 24 mmol/L (21-32); Chloride 106 mmol/L (98-107); GFR African American 70 mL/min; GFR Non-African American 58 mL/min; Glucose 207 mg/dL (74-106); Lipase 157 U/L (73-393); Magnesium 2.3 mg/dL (1.6-2.6); Potassium 3.9 mmol/L (3.5-5.1); Sodium 140 mmol/L (136-145)
[2017-12-19 00:37] LABS: Alkaline Phosphatase 100 U/L (45-117); Bilirubin, Total 0.5 mg/dL (0.2-1.0); Total Protein 7.7 g/dL (6.4-8.2)
[2017-12-19] MEDS ORDERED: metroNIDAZOLE 500MG/100ML 100 ML IV ONE (00:45)
[2017-12-19] MEDS ORDERED: VANCOMYCIN 1GM/250ML 250 ML IV ONE (00:45)
[2017-12-19] MEDS ORDERED: SODIUM CHLORIDE 0.9% 1,000 ML IV ONE (00:45)
[2017-12-19] MEDS ORDERED: cefTRIAXone 1GM/10ml IVPUSH 10 ML IV ONE (00:45)
[2017-12-19 00:58] LABS: Urine Bacteria NONE SEEN /hpf (None Seen); Urine Blood Negative /uL (Negative); Urine Budding Yeast OCCASIONAL /hpf (None Seen); Urine Mucus FEW (None Seen); Urine Specific Gravity 1.022 (1.001-1.035); Urine WBC <1 /hpf (0 - 3)
[2017-12-19] MEDS ORDERED: ONDANSETRON HCL 4 MG/2 ML VIAL IV ONE (01:15)
[2017-12-19] MEDS ORDERED: MORPHINE SULFATE 4 MG/ML SYR/VIAL IV ONE (01:15)
[2017-12-19 01:54] VITALS: BP 160/99
== END 2017-12-19 02:40 | disposition short-term general hospital (02) | DRG 395 ==
LOC: ER 23:20 → OVERFLOW 23:21 → ER 12-19 02:40
PROVIDERS: ADMIT Emergency Medicine; ATTEND Emergency Medicine
DX: K55.059 Acute (reversible) ischemia of intestine, part and extent unspecified (principal); Z79.899 Other long term (current) drug therapy; Z79.82 Long term (current) use of aspirin; Z86.73 Personal history of transient ischemic attack (TIA), and cerebral infarction without residual deficits; J44.9 Chronic obstructive pulmonary disease, unspecified; M19.90 Unspecified osteoarthritis, unspecified site; E78.5 Hyperlipidemia, unspecified; I25.2 Old myocardial infarction; Z87.440 Personal history of urinary (tract) infections
CPT/HCPCS: 36415; 71045; 74176; 80053; 80320; 81001; 83605; 83690; 83735; 84484; 85025; 87040; 93005; 96365; 96367; 96375; 99285; G0378; J2270; J2405; J3370; J3490; J7030

== ENCOUNTER 2018-01-02 18:42 | Inpatient (IN) | payer MEDICARE, MEDICAID ==
[~2018-01-02] VITALS: Ht 180.3 cm; Wt 60.7 kg
[2018-01-02 21:09] LABS: Basophils # (auto) 0.2 uL; Basophils % (auto) 2.6 % (0.0-2.0); Eosinophils # (auto) 0.6 uL; Hematocrit 36.4 % (41.0-53.0); Hemoglobin 12.1 g/dL (13.5-17.5); Lymphocytes # (auto) 1.8 uL; Lymphocytes % (auto) 20.4 % (10.0-50.0); Mean Corpuscular Hemoglobin 30.7 pg (28.0-32.0); Mean Corpuscular Hgb Conc. 33.3 g/dL (32.0-36.0); Mean Corpuscular Volume 92.1 fL (80.0-100.0); Monocytes # (auto) 0.8 uL; Monocytes % (auto) 9.6 % (0.0-12.0); Neutrophils # (auto) 5.2 uL; Neutrophils % (auto) 60.4 % (37.0-80.0); Platelet Count (auto) 393 10^3/uL (140-450); Red Blood Cells 3.95 10^6/uL (4.5-5.90); Red Cell Distribution Width 13.5 % (11.8-14.3); White Blood Cell 8.6 10^3/uL (4.4-10.8)
[2018-01-02 21:20] LABS: Urine Bacteria NONE SEEN /hpf (None Seen); Urine Blood Negative /uL (Negative); Urine Mucus FEW (None Seen); Urine Specific Gravity 1.033 (1.001-1.035); Urine WBC 2 /hpf (0 - 3)
[2018-01-02 21:42] LABS: Albumin 3.4 g/dL (3.4-5.0); Calcium 8.7 mg/dL (8.5-10.1); Potassium 4.4 mmol/L (3.5-5.1)
[2018-01-02 21:46] LABS: Bilirubin, Total 0.4 mg/dL (0.2-1.0); Total Protein 7.3 g/dL (6.4-8.2)
[2018-01-03] MEDS ORDERED: ALBUTEROL SULF 2.5 MG/0.5ML(0.5%) NEB SOLN NEB ONE (03:30)
[2018-01-03] MEDS ORDERED: SODIUM CHLORIDE 0.9% 1,000 ML IV ONE (03:30)
[2018-01-03] MEDS ORDERED: IPRATROPIUM BROM 0.5 MG/2.5ML INH SOL NEB ONE (03:30)
[2018-01-03 03:39] LABS: Basophils # (auto) 0.1 uL; Basophils % (auto) 1.4 % (0.0-2.0); Eosinophils # (auto) 0.5 uL; Eosinophils % (auto) 6.1 % (0.0-7.0); Hematocrit 34.9 % (41.0-53.0); Hemoglobin 11.6 g/dL (13.5-17.5); Lymphocytes # (auto) 1.9 uL; Lymphocytes % (auto) 25.1 % (10.0-50.0); Mean Corpuscular Hemoglobin 30.3 pg (28.0-32.0); Mean Corpuscular Hgb Conc. 33.1 g/dL (32.0-36.0); Mean Corpuscular Volume 91.5 fL (80.0-100.0); Monocytes # (auto) 0.6 uL; Monocytes % (auto) 8.5 % (0.0-12.0); Neutrophils # (auto) 4.5 uL; Neutrophils % (auto) 58.9 % (37.0-80.0); Platelet Count (auto) 371 10^3/uL (140-450); Red Blood Cells 3.82 10^6/uL (4.5-5.90); Red Cell Distribution Width 13.6 % (11.8-14.3); White Blood Cell 7.6 10^3/uL (4.4-10.8)
[2018-01-03 03:58] LABS: Calcium 8.3 mg/dL (8.5-10.1); Potassium 4.4 mmol/L (3.5-5.1)
[2018-01-03 04:06] LABS: BUN/Creatinine Ratio 21.3
[2018-01-03 04:18] LABS: Bilirubin, Total 0.5 mg/dL (0.2-1.0)
[2018-01-03 04:21] LABS: Total Protein 6.6 g/dL (6.4-8.2)
[2018-01-03] MEDS ORDERED: LOPERAMIDE HCL 2 MG CAP PO PRN (06:00)
[2018-01-03] MEDS ORDERED: ACETAMINOPHEN 325 MG TAB PO PRN (06:00)
[2018-01-03] MEDS ORDERED: LOPERAMIDE HCL 2 MG CAP PO ONE (06:00)
[2018-01-03] MEDS ORDERED: ONDANSETRON HCL 4 MG/2 ML VIAL IV PRN (06:00)
[2018-01-03] MEDS ORDERED: TEMAZEPAM 15 MG CAP PO PRN (06:00)
[2018-01-03] MEDS: SODIUM CHLORIDE 0.9% 1,000 ML IV SCH ×3 (06:17→19:24)
[2018-01-03 08:00] VITALS: BP 107/55
[2018-01-03] MEDS: cefTRIAXone 1GM/10ml IVPUSH 10 ML IV SCH (09:23)
[2018-01-03] MEDS: PANTOPRAZOLE 40 MG/10 ML VIAL IV SCH (09:23)
[2018-01-03 11:53] LABS: Alcohol, Urine < 3.0 mg/dL (0-5); Amphetamine Screen, Urine NEGATIVE (NEGATIVE); Barbiturate Scree,Urine NEGATIVE (NEGATIVE); Benzodiazephine Screen, Urine NEGATIVE (NEGATIVE); Cannabinoid Screen, Urine NEGATIVE (NEGATIVE); Cocaine Screen, Urine NEGATIVE (NEGATIVE); Opiate Scree,Urine NEGATIVE (NEGATIVE); Phencyclidine Screen, Urine NEGATIVE (NEGATIVE)
[2018-01-03 11:57] LABS: Urine Bacteria NONE SEEN /hpf (None Seen); Urine Blood Negative /uL (Negative); Urine Specific Gravity 1.006 (1.001-1.035); Urine WBC <1 /hpf (0 - 3)
[2018-01-03 12:00] VITALS: BP 108/60
[2018-01-03 15:00] VITALS: BP 112/77
[2018-01-03] MEDS ORDERED: GASTROGRAFIN 120 ML SOL ONE (15:55)
[2018-01-03] MEDS: ATORVASTATIN 20 MG TAB PO SCH (21:44)
[2018-01-03 22:23] VITALS: BP 105/54
[2018-01-04 05:11] VITALS: BP 95/63
[2018-01-04 05:12] VITALS: BP 95/63
[2018-01-04 05:14] LABS: Basophils # (auto) 0.1 uL; Basophils % (auto) 2.1 % (0.0-2.0); Eosinophils # (auto) 0.4 uL; Eosinophils % (auto) 7.3 % (0.0-7.0); Hematocrit 34.5 % (41.0-53.0); Hemoglobin 11.6 g/dL (13.5-17.5); Lymphocytes # (auto) 1.4 uL; Lymphocytes % (auto) 24.4 % (10.0-50.0); Mean Corpuscular Hemoglobin 31.2 pg (28.0-32.0); Mean Corpuscular Hgb Conc. 33.7 g/dL (32.0-36.0); Mean Corpuscular Volume 92.6 fL (80.0-100.0); Monocytes # (auto) 0.6 uL; Monocytes % (auto) 9.7 % (0.0-12.0); Neutrophils # (auto) 3.3 uL; Neutrophils % (auto) 56.5 % (37.0-80.0); Nucleated Red Blood Cells % 0.1 %; Platelet Count (auto) 356 10^3/uL (140-450); Red Blood Cells 3.73 10^6/uL (4.5-5.90); Red Cell Distribution Width 13.3 % (11.8-14.3); White Blood Cell 5.8 10^3/uL (4.4-10.8)
[2018-01-04 05:29] LABS: Albumin 2.7 g/dL (3.4-5.0); BUN/Creatinine Ratio 9.4; Calcium 7.8 mg/dL (8.5-10.1); Potassium 3.9 mmol/L (3.5-5.1)
[2018-01-04 05:32] LABS: Bilirubin, Total 0.4 mg/dL (0.2-1.0)
[2018-01-04] MEDS: PANTOPRAZOLE 40 MG/10 ML VIAL IV SCH (08:52)
[2018-01-04] MEDS: cefTRIAXone 1GM/10ml IVPUSH 10 ML IV SCH (08:52)
[2018-01-04 09:00] VITALS: BP 96/68
[2018-01-04] MEDS ORDERED: cefTRIAXone 1GM/10ml IVPUSH 10 ML IV SCH (09:00)
[2018-01-04 13:00] VITALS: BP 112/52
[2018-01-04 17:00] VITALS: BP 97/61
[2018-01-04 22:00] VITALS: BP 109/57
[2018-01-04] MEDS: metroNIDAZOLE 500MG/100ML 100 ML IV SCH (22:18)
[2018-01-04] MEDS: ATORVASTATIN 20 MG TAB PO SCH (22:19)
[2018-01-04] MEDS: SODIUM CHLORIDE 0.9% 1,000 ML IV SCH (22:28)
[2018-01-05 05:00] VITALS: BP 122/66
[2018-01-05] MEDS: metroNIDAZOLE 500MG/100ML 100 ML IV SCH ×3 (05:07→21:39)
[2018-01-05] MEDS: HYDROcodone-ACET 5/325MG TAB PO PRN ×2 (09:00→13:30)
[2018-01-05 09:08] VITALS: BP 98/60
[2018-01-05] MEDS: PANTOPRAZOLE 40 MG/10 ML VIAL IV SCH (10:47)
[2018-01-05] MEDS: cefTRIAXone 1GM/10ml IVPUSH 10 ML IV SCH (10:47)
[2018-01-05] MEDS: SODIUM CHLORIDE 0.9% 1,000 ML IV SCH (11:29)
[2018-01-05 13:34] VITALS: BP 106/63
[2018-01-05 16:46] VITALS: BP 106/66
[2018-01-05] MEDS: Ensure HIGH Protein Chocolate 8oz Bottle PO SCH (17:39)
[2018-01-05] MEDS ORDERED: MEPERIDINE HCL (50 MG/ML) 1 ML VIAL IV ONE (17:45)
[2018-01-05] MEDS: ATORVASTATIN 20 MG TAB PO SCH (21:38)
[2018-01-05 22:00] VITALS: BP 97/56
[2018-01-06] MEDS: SODIUM CHLORIDE 0.9% 1,000 ML IV SCH ×3 (03:40→21:50)
[2018-01-06 04:59] VITALS: BP 109/76
[2018-01-06] MEDS: metroNIDAZOLE 500MG/100ML 100 ML IV SCH ×3 (05:43→21:49)
[2018-01-06] MEDS: MEPERIDINE HCL (50 MG/ML) 1 ML VIAL IV PRN ×4 (07:40→18:01)
[2018-01-06 08:55] VITALS: BP 96/63
[2018-01-06] MEDS: PANTOPRAZOLE 40 MG/10 ML VIAL IV SCH (10:33)
[2018-01-06] MEDS: cefTRIAXone 1GM/10ml IVPUSH 10 ML IV SCH (10:33)
[2018-01-06] MEDS: Ensure HIGH Protein Chocolate 8oz Bottle PO SCH ×2 (10:34→17:12)
[2018-01-06] MEDS: HYDROcodone-ACET 5/325MG TAB PO PRN ×4 (10:34→19:20)
[2018-01-06 12:41] VITALS: BP 100/56
[2018-01-06] MEDS ORDERED: ceFAZolin 1GM/50ML 50 ML IV ONE (13:02)
[2018-01-06 17:00] VITALS: BP 124/72
[2018-01-06] MEDS: ATORVASTATIN 20 MG TAB PO SCH (21:49)
[2018-01-06 22:00] VITALS: BP 109/65
[2018-01-07 05:03] VITALS: BP 109/73
[2018-01-07] MEDS: metroNIDAZOLE 500MG/100ML 100 ML IV SCH ×2 (05:57→14:34)
[2018-01-07 07:00] LABS: Basophils # (auto) 0.1 uL; Basophils % (auto) 2.2 % (0.0-2.0); Eosinophils # (auto) 0.5 uL; Eosinophils % (auto) 10.9 % (0.0-7.0); Hematocrit 35.9 % (41.0-53.0); Hemoglobin 12.2 g/dL (13.5-17.5); Lymphocytes # (auto) 1.3 uL; Lymphocytes % (auto) 25.5 % (10.0-50.0); Mean Corpuscular Hemoglobin 30.8 pg (28.0-32.0); Mean Corpuscular Volume 90.5 fL (80.0-100.0); Monocytes # (auto) 0.5 uL; Monocytes % (auto) 10.4 % (0.0-12.0); Neutrophils # (auto) 2.6 uL; Platelet Count (auto) 282 10^3/uL (140-450); Red Blood Cells 3.97 10^6/uL (4.5-5.90); Red Cell Distribution Width 13.3 % (11.8-14.3)
[2018-01-07 07:08] LABS: Albumin 2.8 g/dL (3.4-5.0); BUN/Creatinine Ratio 9.8; Bilirubin, Total 0.3 mg/dL (0.2-1.0); Calcium 8.2 mg/dL (8.5-10.1); Potassium 4.4 mmol/L (3.5-5.1); Total Protein 5.9 g/dL (6.4-8.2)
[2018-01-07 08:00] VITALS: BP 91/51
[2018-01-07] MEDS: cefTRIAXone 1GM/10ml IVPUSH 10 ML IV SCH (10:14)
[2018-01-07] MEDS: PANTOPRAZOLE 40 MG/10 ML VIAL IV SCH (10:14)
[2018-01-07] MEDS: Ensure HIGH Protein Chocolate 8oz Bottle PO SCH ×2 (10:16→17:53)
[2018-01-07 12:59] VITALS: BP 105/52
[2018-01-07 16:41] VITALS: BP 90/61
[2018-01-07] MEDS: SODIUM CHLORIDE 0.9% 1,000 ML IV SCH (17:53)
[2018-01-07 21:30] VITALS: BP 111/58
[2018-01-07] MEDS: metroNIDAZOLE 500 MG TAB PO SCH (21:47)
[2018-01-07] MEDS: ATORVASTATIN 20 MG TAB PO SCH (21:47)
[2018-01-07] MEDS: HYDROcodone-ACET 5/325MG TAB PO PRN (21:47)
[2018-01-08 05:02] VITALS: BP 100/50
[2018-01-08] MEDS: SODIUM CHLORIDE 0.9% 1,000 ML IV SCH (06:03)
[2018-01-08] MEDS: metroNIDAZOLE 500 MG TAB PO SCH ×2 (06:03→16:15)
[2018-01-08 09:00] VITALS: BP 101/61
[2018-01-08] MEDS: Ensure HIGH Protein Chocolate 8oz Bottle PO SCH (10:13)
[2018-01-08] MEDS: PANTOPRAZOLE 40 MG/10 ML VIAL IV SCH (10:13)
[2018-01-08 12:59] VITALS: BP 121/68
[2018-01-08 15:09] VITALS: BP 121/68
== END 2018-01-08 17:00 | disposition home or self-care (01) | DRG 248 ==
LOC: ER 18:42 → OVERFLOW 18:43 → WEST WING 01-03 08:35
PROVIDERS: ADMIT Nurse Practitioner; ATTEND Family Medicine
DX: A04.72 Enterocolitis due to Clostridium difficile, not specified as recurrent (principal); K56.7 Ileus, unspecified; J44.1 Chronic obstructive pulmonary disease with (acute) exacerbation; E11.9 Type 2 diabetes mellitus without complications; E86.0 Dehydration; K57.30 Diverticulosis of large intestine without perforation or abscess without bleeding; E78.00 Pure hypercholesterolemia, unspecified; M19.90 Unspecified osteoarthritis, unspecified site; N40.0 Benign prostatic hyperplasia without lower urinary tract symptoms; E78.5 Hyperlipidemia, unspecified; I10 Essential (primary) hypertension; I25.2 Old myocardial infarction; Z82.0 Family history of epilepsy and other diseases of the nervous system; Z82.49 Family history of ischemic heart disease and other diseases of the circulatory system; Z86.73 Personal history of transient ischemic attack (TIA), and cerebral infarction without residual deficits; Z90.49 Acquired absence of other specified parts of digestive tract; Z83.3 Family history of diabetes mellitus; Z88.1 Allergy status to other antibiotic agents; Z88.8 Allergy status to other drugs, medicaments and biological substances
CPT/HCPCS: 36415; 71045; 74176; 74250; 80053; 80307; 81001; 82270; 82378; 85025; 85048; 87045; 87081; 87177; 87493; 87899; 94640; 96360; C9113; J0690; J0696; J3490

== ENCOUNTER 2018-08-25 09:42 | Emergency (ER) | payer MEDICARE, MEDICAID ==
[~2018-08-25] VITALS: Ht 180.3 cm; Wt 59.0 kg
[2018-08-25 12:30] VITALS: BP 127/85
== END 2018-08-25 13:35 | disposition left against medical advice (07) ==
LOC: ER 09:42
DX: D22.30 Melanocytic nevi of unspecified part of face (principal); R23.9 Unspecified skin changes; R51 Headache; M19.90 Unspecified osteoarthritis, unspecified site; J44.9 Chronic obstructive pulmonary disease, unspecified; E78.5 Hyperlipidemia, unspecified; I10 Essential (primary) hypertension; I25.2 Old myocardial infarction; Z86.73 Personal history of transient ischemic attack (TIA), and cerebral infarction without residual deficits
CPT/HCPCS: 70450

== ENCOUNTER 2019-09-27 14:28 | Inpatient (IN) | payer MEDICARE, MEDICAID ==
[~2019-09-27] VITALS: Ht 180.3 cm; Wt 62.7 kg
[~2019-09-27 14:28] MED LIST changes: -CIPR-217 PO; +CIPR500T4 PO
[2019-09-27 16:04] LABS: Basophils # (auto) 0.1 10 ^3/uL (0-0.2); Basophils % (auto) 0.7 % (0.0-2.0); Eosinophils # (auto) 0.1 10 ^3/uL (0-0.8); Eosinophils % (auto) 1.3 % (0.0-7.0); Hematocrit 40.5 % (41.0-53.0); Hemoglobin 14.3 g/dL (13.5-17.5); Lymphocytes # (auto) 2.1 10 ^3/uL (0.4-5.4); Lymphocytes % (auto) 22.3 % (10.0-50.0); Mean Corpuscular Hemoglobin 32.6 pg (28.0-32.0); Mean Corpuscular Hgb Conc. 35.3 g/dL (32.0-36.0); Mean Corpuscular Volume 92.3 fL (80.0-100.0); Monocytes # (auto) 0.8 10 ^3/uL (0-1.3); Neutrophils # (auto) 6.1 10 ^3/uL (1.6-8.6); Neutrophils % (auto) 66.7 % (37.0-80.0); Platelet Count (auto) 206 10^3/uL (140-450); Red Blood Cells 4.39 10^6/uL (4.5-5.90); Red Cell Distribution Width 13.9 % (11.8-14.3); White Blood Cell 9.2 10^3/uL (4.4-10.8)
[2019-09-27 16:26] LABS: Albumin 3.7 g/dL (3.4-5.0); Potassium 4.7 mmol/L (3.5-5.1)
[2019-09-27 16:29] LABS: Bilirubin, Total 0.9 mg/dL (0.2-1.0); Total Protein 7.5 g/dL (6.4-8.2)
[2019-09-27] MEDS ORDERED: IPRATROPIUM BROM 0.5 MG/2.5ML INH SOL NEB PRN (18:45)
[2019-09-27] MEDS ORDERED: NITROGLYCERIN 0.4 MG SL TAB SL PRN (18:45)
[2019-09-27] MEDS ORDERED: ALBUTEROL SULF 2.5 MG/0.5ML(0.5%) NEB SOLN NEB PRN (18:45)
[2019-09-27] MEDS ORDERED: ONDANSETRON HCL 4 MG/2 ML VIAL IV PRN (18:45)
[2019-09-27] MEDS ORDERED: MORPHINE SULF INJ 2 MG/ML SYRINGE 1ML IV PRN ×2 (18:45)
[2019-09-27 18:46] LABS: Urine Bacteria NONE SEEN /hpf (None Seen); Urine Blood Negative /uL (Negative); Urine Mucus FEW (None Seen); Urine Specific Gravity 1.021 (1.001-1.035); Urine WBC 1 /hpf (0 - 3)
[2019-09-27] MEDS: SODIUM CHLORIDE 0.9% 1,000 ML IV SCH (18:55)
[2019-09-27 19:40] VITALS: BP 107/63
[2019-09-27 21:52] VITALS: BP 144/73
[2019-09-27] MEDS: PANTOPRAZOLE 40 MG/10 ML VIAL INJ IV SCH (22:23)
[2019-09-28 05:00] VITALS: BP 110/72
[2019-09-28 05:55] LABS: Basophils # (auto) 0.1 10 ^3/uL (0-0.2); Basophils % (auto) 0.9 % (0.0-2.0); Eosinophils # (auto) 0.3 10 ^3/uL (0-0.8); Eosinophils % (auto) 4.7 % (0.0-7.0); Hematocrit 41.4 % (41.0-53.0); Hemoglobin 13.7 g/dL (13.5-17.5); INR 1.03 (0.9-1.15); Lymphocytes # (auto) 2.1 10 ^3/uL (0.4-5.4); Lymphocytes % (auto) 34.2 % (10.0-50.0); Mean Corpuscular Hemoglobin 31.1 pg (28.0-32.0); Mean Corpuscular Volume 94.2 fL (80.0-100.0); Monocytes # (auto) 0.6 10 ^3/uL (0-1.3); Neutrophils % (auto) 50.2 % (37.0-80.0); Nucleated Red Blood Cells % 0.1 %; Partial Thromboplastin Time 31.8 sec (23.64-32.05); Platelet Count (auto) 204 10^3/uL (140-450); Red Blood Cells 4.39 10^6/uL (4.5-5.90)
[2019-09-28 06:01] LABS: Albumin 3.3 g/dL (3.4-5.0); Calcium 8.5 mg/dL (8.5-10.1); Potassium 4.4 mmol/L (3.5-5.1)
[2019-09-28 06:04] LABS: BUN/Creatinine Ratio 12.2; Bilirubin, Total 1.2 mg/dL (0.2-1.0); Total Protein 6.7 g/dL (6.4-8.2)
[2019-09-28] MEDS: SODIUM CHLORIDE 0.9% 1,000 ML IV SCH ×2 (06:48→21:30)
[2019-09-28 09:00] VITALS: BP 101/53
[2019-09-28] MEDS: PANTOPRAZOLE 40 MG/10 ML VIAL INJ IV SCH ×2 (10:13→21:30)
[2019-09-28 13:00] VITALS: BP 119/70
[2019-09-28 17:00] VITALS: BP 99/60
[2019-09-28 20:00] VITALS: BP 119/70
[2019-09-28 23:05] VITALS: BP 119/70
[2019-09-29] MEDS: SODIUM CHLORIDE 0.9% 1,000 ML IV SCH ×2 (02:31→10:45)
[2019-09-29 05:22] VITALS: BP 119/71
[2019-09-29 06:06] LABS: Basophils # (auto) 0 10 ^3/uL (0-0.2); Basophils % (auto) 0.9 % (0.0-2.0); Eosinophils # (auto) 0.2 10 ^3/uL (0-0.8); Eosinophils % (auto) 3.8 % (0.0-7.0); Hematocrit 41.5 % (41.0-53.0); Hemoglobin 14.1 g/dL (13.5-17.5); Lymphocytes # (auto) 1.7 10 ^3/uL (0.4-5.4); Lymphocytes % (auto) 30.4 % (10.0-50.0); Mean Corpuscular Hemoglobin 31.7 pg (28.0-32.0); Mean Corpuscular Hgb Conc. 33.9 g/dL (32.0-36.0); Mean Corpuscular Volume 93.6 fL (80.0-100.0); Monocytes # (auto) 0.5 10 ^3/uL (0-1.3); Monocytes % (auto) 8.7 % (0.0-12.0); Neutrophils # (auto) 3.2 10 ^3/uL (1.6-8.6); Neutrophils % (auto) 56.2 % (37.0-80.0); Nucleated Red Blood Cells % 0.1 %; Platelet Count (auto) 193 10^3/uL (140-450); Red Blood Cells 4.44 10^6/uL (4.5-5.90); Red Cell Distribution Width 13.7 % (11.8-14.3); White Blood Cell 5.7 10^3/uL (4.4-10.8)
[2019-09-29 06:17] LABS: Albumin 3.4 g/dL (3.4-5.0); Calcium 8.7 mg/dL (8.5-10.1)
[2019-09-29 06:22] LABS: BUN/Creatinine Ratio 9.6; Total Protein 6.8 g/dL (6.4-8.2)
[2019-09-29] MEDS ORDERED: NALOXONE HCL 0.4 MG/ML VIAL ONE (08:31)
[2019-09-29] MEDS ORDERED: SODIUM CHLORIDE LOCK 10 ML ONE (08:31)
[2019-09-29] MEDS ORDERED: FLUMAZENIL 0.1 MG/ML INJ 10ML MDV IV ONE (08:31)
[2019-09-29] MEDS ORDERED: LIDOCAINE VISCOUS 2% 15ML UD ONE (08:31)
[2019-09-29] MEDS ORDERED: fentaNYL CITRATE 100 MCG/2 ML VL ONE (08:32)
[2019-09-29] MEDS ORDERED: diphenhdrAMINE HCL 50 MG/1 ML VL ONE (08:32)
[2019-09-29] MEDS ORDERED: MIDAZOLAM HCL 5 MG/ML-1ML VIAL ONE (08:32)
[2019-09-29 09:00] VITALS: BP 109/67
[2019-09-29] MEDS: PANTOPRAZOLE 40 MG/10 ML VIAL INJ IV SCH (11:57)
[2019-09-29 13:00] VITALS: BP 117/75
[2019-09-29 13:19] VITALS: BP 109/67
== END 2019-09-29 15:45 | disposition home or self-care (01) | DRG 241 ==
LOC: ER 14:28 → TELE 14:29 → TELE-CENTR 20:24
PROVIDERS: ADMIT Nurse Practitioner Acute Care; ATTEND Internal Medicine
PROC: 0DB68ZX Excision of Stomach, Via Natural or Artificial Opening Endoscopic, Diagnostic (ICD-10-PCS; principal; 2019-09-29 09:34)
DX: K29.81 Duodenitis with bleeding (principal); I50.9 Heart failure, unspecified; J44.9 Chronic obstructive pulmonary disease, unspecified; I11.0 Hypertensive heart disease with heart failure; N18.3 Chronic kidney disease, stage 3 (moderate); K20.9 Esophagitis, unspecified; K22.8 Other specified diseases of esophagus; M19.90 Unspecified osteoarthritis, unspecified site; Z79.899 Other long term (current) drug therapy; Z79.82 Long term (current) use of aspirin; Z79.2 Long term (current) use of antibiotics; Z86.73 Personal history of transient ischemic attack (TIA), and cerebral infarction without residual deficits; I25.2 Old myocardial infarction; Z81.1 Family history of alcohol abuse and dependence; Z82.49 Family history of ischemic heart disease and other diseases of the circulatory system; Z83.3 Family history of diabetes mellitus; Z86.718 Personal history of other venous thrombosis and embolism; Z79.01 Long term (current) use of anticoagulants; K44.9 Diaphragmatic hernia without obstruction or gangrene; I12.9 Hypertensive chronic kidney disease with stage 1 through stage 4 chronic kidney disease, or unspecified chronic kidney disease; J45.909 Unspecified asthma, uncomplicated
CPT/HCPCS: 36415; 43239; 71045; 74176; 80053; 81001; 83690; 84439; 84443; 85025; 85610; 85730; 86850; 86900; 86901; 93005; 96360; C9113; G0378; J2250

== ENCOUNTER 2020-08-02 18:17 | Emergency (ER) | payer MEDICARE, MEDICAID ==
[~2020-08-02] VITALS: Ht 180.3 cm; Wt 63.5 kg
[2020-08-02 18:47] VITALS: BP 110/70
[2020-08-02] MEDS ORDERED: CLINDAMYCIN 900MG IV 50 ML IV ONE (20:30)
[2020-08-02 22:01] LABS: Basophils # (auto) 0.1 10 ^3/uL (0-0.2); Basophils % (auto) 0.5 % (0.0-2.0); Eosinophils # (auto) 0.1 10 ^3/uL (0-0.8); Eosinophils % (auto) 0.6 % (0.0-7.0); Hematocrit 43.3 % (41.0-53.0); Hemoglobin 14.9 g/dL (13.5-17.5); Lymphocytes # (auto) 2.1 10 ^3/uL (0.4-5.4); Lymphocytes % (auto) 20.6 % (10.0-50.0); Mean Corpuscular Hemoglobin 32.1 pg (28.0-32.0); Mean Corpuscular Hgb Conc. 34.4 g/dL (32.0-36.0); Mean Corpuscular Volume 93.5 fL (80.0-100.0); Monocytes % (auto) 9.2 % (0.0-12.0); Neutrophils # (auto) 7.1 10 ^3/uL (1.6-8.6); Neutrophils % (auto) 69.1 % (37.0-80.0); Platelet Count (auto) 276 10^3/uL (140-450); Red Blood Cells 4.63 10^6/uL (4.5-5.90); Red Cell Distribution Width 13.9 % (11.8-14.3); White Blood Cell 10.3 10^3/uL (4.4-10.8)
[2020-08-02 22:24] LABS: Albumin 4.4 g/dL (3.4-5.0); Anion Gap 6 (5-15); Blood Urea Nitrogen 21 mg/dL (7-18); Carbon Dioxide 28 mmol/L (21-32); Chloride 102 mmol/L (98-107); Glucose 118 mg/dL (74-106); Potassium 4.4 mmol/L (3.5-5.1); Sodium 136 mmol/L (136-145)
[2020-08-02 22:29] LABS: Alanine Aminotransferase 22 U/L (16-61); Alkaline Phosphatase 107 U/L (45-117); Aspartate Aminotransferase 16 U/L (15-37); BUN/Creatinine Ratio 15.6; Bilirubin, Total 0.8 mg/dL (0.2-1.0); GFR African American 66 mL/min; GFR Non-African American 55 mL/min; Total Protein 8.7 g/dL (6.4-8.2)
[2020-08-02 22:41] LABS: INR 0.97 (0.9-1.15); Partial Thromboplastin Time 30.2 sec (23.0-31.2)
== END 2020-08-02 23:14 | disposition home or self-care (01) ==
LOC: ER 18:17
DX: K04.7 Periapical abscess without sinus (principal); I12.9 Hypertensive chronic kidney disease with stage 1 through stage 4 chronic kidney disease, or unspecified chronic kidney disease; N18.31 Chronic kidney disease, stage 3a; E78.5 Hyperlipidemia, unspecified
CPT/HCPCS: 36415; 70450; 70486; 80053; 84484; 85025; 85610; 85730; 93005; 96365; 99285; J3490

== ENCOUNTER 2020-09-26 04:22 | Emergency (ER) | payer MEDICARE, MEDICAID ==
[~2020-09-26] VITALS: Ht 180.3 cm; Wt 63.5 kg
[2020-09-26] MEDS ORDERED: FAMOTIDINE (10MG/ML) 2ML VL IV ONE (05:15)
[2020-09-26 06:16] LABS: Basophils # (auto) 0.1 10 ^3/uL (0-0.2); Eosinophils # (auto) 0.1 10 ^3/uL (0-0.8); Hematocrit 38.5 % (41.0-53.0); Lymphocytes # (auto) 1.8 10 ^3/uL (0.4-5.4); Lymphocytes % (auto) 27.1 % (10.0-50.0); Mean Corpuscular Hemoglobin 31.4 pg (28.0-32.0); Mean Corpuscular Hgb Conc. 33.9 g/dL (32.0-36.0); Mean Corpuscular Volume 92.7 fL (80.0-100.0); Monocytes # (auto) 0.6 10 ^3/uL (0-1.3); Neutrophils # (auto) 4.1 10 ^3/uL (1.6-8.6); Neutrophils % (auto) 60.9 % (37.0-80.0); Platelet Count (auto) 226 10^3/uL (140-450); Red Blood Cells 4.15 10^6/uL (4.5-5.90); Red Cell Distribution Width 13.9 % (11.8-14.3); White Blood Cell 6.7 10^3/uL (4.4-10.8)
[2020-09-26 06:37] LABS: Albumin 3.8 g/dL (3.4-5.0); Anion Gap 8 (5-15); Blood Urea Nitrogen 17 mg/dL (7-18); Calcium 9.2 mg/dL (8.5-10.1); Carbon Dioxide 23 mmol/L (21-32); Chloride 106 mmol/L (98-107); Glucose 106 mg/dL (74-106); Potassium 4.1 mmol/L (3.5-5.1); Sodium 137 mmol/L (136-145)
[2020-09-26 06:43] LABS: Alanine Aminotransferase 16 U/L (16-61); Alkaline Phosphatase 100 U/L (45-117); Aspartate Aminotransferase 15 U/L (15-37); BUN/Creatinine Ratio 15.2; Bilirubin, Total 0.3 mg/dL (0.2-1.0); GFR African American 82 mL/min; GFR Non-African American 68 mL/min; Total Protein 7.3 g/dL (6.4-8.2)
[2020-09-26 08:00] VITALS: BP 122/80
== END 2020-09-26 09:44 | disposition home or self-care (01) ==
LOC: ER 04:22
DX: K29.00 Acute gastritis without bleeding (principal); F41.9 Anxiety disorder, unspecified; R07.89 Other chest pain; I12.9 Hypertensive chronic kidney disease with stage 1 through stage 4 chronic kidney disease, or unspecified chronic kidney disease; N18.9 Chronic kidney disease, unspecified; E78.5 Hyperlipidemia, unspecified; Z88.1 Allergy status to other antibiotic agents
CPT/HCPCS: 36415; 71046; 80053; 84484; 85025; 93005; 96374; 99285; J3490

== ENCOUNTER 2020-11-17 23:51 | Emergency (ER) | payer MEDICARE, MEDICAID ==
[~2020-11-17] VITALS: Ht 180.3 cm; Wt 63.5 kg
[2020-11-18 01:53] LABS: Basophils # (auto) 0.1 10 ^3/uL (0-0.2); Basophils % (auto) 0.6 % (0.0-2.0); Eosinophils # (auto) 0.1 10 ^3/uL (0-0.8); Eosinophils % (auto) 0.6 % (0.0-7.0); Hemoglobin 14.5 g/dL (13.5-17.5); Lymphocytes # (auto) 1.8 10 ^3/uL (0.4-5.4); Lymphocytes % (auto) 19.1 % (10.0-50.0); Mean Corpuscular Hemoglobin 31.3 pg (28.0-32.0); Mean Corpuscular Hgb Conc. 33.6 g/dL (32.0-36.0); Mean Corpuscular Volume 93.1 fL (80.0-100.0); Monocytes # (auto) 0.9 10 ^3/uL (0-1.3); Monocytes % (auto) 9.7 % (0.0-12.0); Neutrophils # (auto) 6.7 10 ^3/uL (1.6-8.6); Platelet Count (auto) 234 10^3/uL (140-450); Red Blood Cells 4.62 10^6/uL (4.5-5.90); White Blood Cell 9.6 10^3/uL (4.4-10.8)
[2020-11-18 02:03] LABS: Albumin 4.4 g/dL (3.4-5.0); Anion Gap 11 (5-15); BUN/Creatinine Ratio 11.1; Blood Urea Nitrogen 16 mg/dL (7-18); Carbon Dioxide 23 mmol/L (21-32); Chloride 106 mmol/L (98-107); GFR African American 61 mL/min; GFR Non-African American 51 mL/min; Glucose 93 mg/dL (74-106); Potassium 4.1 mmol/L (3.5-5.1); Sodium 140 mmol/L (136-145)
[2020-11-18 02:16] LABS: Alanine Aminotransferase 18 U/L (16-61); Alkaline Phosphatase 99 U/L (45-117); Aspartate Aminotransferase 24 U/L (15-37); Bilirubin, Total 0.9 mg/dL (0.2-1.0); Total Protein 8.1 g/dL (6.4-8.2)
[2020-11-18 06:30] VITALS: BP 106/58
== END 2020-11-18 06:40 | disposition home or self-care (01) ==
LOC: ER 11-18 00:15
DX: R53.1 Weakness (principal); J44.9 Chronic obstructive pulmonary disease, unspecified; E78.5 Hyperlipidemia, unspecified; I25.2 Old myocardial infarction; I12.9 Hypertensive chronic kidney disease with stage 1 through stage 4 chronic kidney disease, or unspecified chronic kidney disease; N18.9 Chronic kidney disease, unspecified; Z88.8 Allergy status to other drugs, medicaments and biological substances; Z88.1 Allergy status to other antibiotic agents
CPT/HCPCS: 36415; 80053; 84484; 85025; 93005

== ENCOUNTER 2021-04-10 00:25 | Emergency (ER) | payer MEDICARE, MEDICAID ==
[~2021-04-10] VITALS: Ht 180.3 cm; Wt 61.2 kg
[2021-04-10 04:39] VITALS: BP 143/85
== END 2021-04-10 04:35 | disposition home or self-care (01) ==
LOC: ER 00:28
DX: R51.9 Headache, unspecified (principal); R07.81 Pleurodynia; J44.9 Chronic obstructive pulmonary disease, unspecified; I12.9 Hypertensive chronic kidney disease with stage 1 through stage 4 chronic kidney disease, or unspecified chronic kidney disease; N18.9 Chronic kidney disease, unspecified; I25.2 Old myocardial infarction; E78.5 Hyperlipidemia, unspecified; Z76.0 Encounter for issue of repeat prescription; Z86.73 Personal history of transient ischemic attack (TIA), and cerebral infarction without residual deficits; Z88.1 Allergy status to other antibiotic agents; Z88.8 Allergy status to other drugs, medicaments and biological substances
CPT/HCPCS: 70450; 71046

== ENCOUNTER 2021-06-20 19:49 | Emergency (ER) | payer MEDICARE, MEDICAID ==
[~2021-06-20] VITALS: Ht 170.2 cm; Wt 59.0 kg
[2021-06-20 20:11] VITALS: BP 137/87
[2021-06-20 20:48] LABS: Basophils # (auto) 0.1 10 ^3/uL (0-0.2); Basophils % (auto) 1.2 % (0.0-2.0); Eosinophils # (auto) 0.2 10 ^3/uL (0-0.8); Eosinophils % (auto) 3.8 % (0.0-7.0); Hematocrit 39.5 % (41.0-53.0); Hemoglobin 13.2 g/dL (13.5-17.5); Lymphocytes # (auto) 1.8 10 ^3/uL (0.4-5.4); Lymphocytes % (auto) 32.3 % (10.0-50.0); Mean Corpuscular Hemoglobin 30.2 pg (28.0-32.0); Mean Corpuscular Hgb Conc. 33.3 g/dL (32.0-36.0); Mean Corpuscular Volume 90.4 fL (80.0-100.0); Monocytes # (auto) 0.7 10 ^3/uL (0-1.3); Monocytes % (auto) 11.7 % (0.0-12.0); Neutrophils # (auto) 2.9 10 ^3/uL (1.6-8.6); Nucleated Red Blood Cells % 0.2 %; Red Blood Cells 4.36 10^6/uL (4.5-5.90); Red Cell Distribution Width 13.9 % (11.8-14.3); White Blood Cell 5.6 10^3/uL (4.4-10.8)
[2021-06-20 21:11] LABS: Albumin 3.8 g/dL (3.4-5.0); Calcium 8.9 mg/dL (8.5-10.1); Potassium 4.5 mmol/L (3.5-5.1)
[2021-06-20 21:14] LABS: BUN/Creatinine Ratio 12.6; Bilirubin, Total 0.4 mg/dL (0.2-1.0)
== END 2021-06-21 02:34 | disposition left against medical advice (07) ==
LOC: ER 19:52
DX: R10.84 Generalized abdominal pain (principal); R11.2 Nausea with vomiting, unspecified; R19.7 Diarrhea, unspecified; I12.9 Hypertensive chronic kidney disease with stage 1 through stage 4 chronic kidney disease, or unspecified chronic kidney disease; N18.9 Chronic kidney disease, unspecified; J44.9 Chronic obstructive pulmonary disease, unspecified; I25.2 Old myocardial infarction; E78.5 Hyperlipidemia, unspecified; Z88.1 Allergy status to other antibiotic agents; Z88.8 Allergy status to other drugs, medicaments and biological substances
CPT/HCPCS: 36415; 74176; 80053; 83690; 85025; 93005

== ENCOUNTER 2021-08-15 08:24 | Emergency (ER) | payer MEDICARE, MEDICAID ==
[~2021-08-15] VITALS: Ht 180.3 cm; Wt 59.0 kg
[2021-08-15 10:57] VITALS: BP 116/85
[2021-08-15] MEDS ORDERED: ACYC-161 PO (10:58)
[2021-08-15] MEDS ORDERED: ACE3T PO (10:58)
[2021-08-15] MEDS ORDERED: ONDANSETRON ODT 4 MG TAB PO ONE (11:00)
[2021-08-15] MEDS ORDERED: ACYCLOVIR 400 MG TAB PO ONE (11:00)
[2021-08-15] MEDS ORDERED: HYDROcodone-ACET 10/325MG TAB PO ONE (11:00)
== END 2021-08-15 11:40 | disposition home or self-care (01) ==
LOC: ER 08:24
DX: B02.9 Zoster without complications (principal); I25.2 Old myocardial infarction; J44.9 Chronic obstructive pulmonary disease, unspecified; E78.5 Hyperlipidemia, unspecified; I12.9 Hypertensive chronic kidney disease with stage 1 through stage 4 chronic kidney disease, or unspecified chronic kidney disease; N18.9 Chronic kidney disease, unspecified; Z79.899 Other long term (current) drug therapy; Z88.8 Allergy status to other drugs, medicaments and biological substances
CPT/HCPCS: 99284; Q0162

== ENCOUNTER 2021-09-10 22:42 | Emergency (ER) | payer MEDICARE, MEDICAID ==
[~2021-09-10] VITALS: Ht 180.3 cm; Wt 59.0 kg
[~2021-09-10 22:42] MED LIST changes: +ACE3T PO; -ACET325T82 PO; +ACYC-161 PO; -ASPI-231 PO; -ATOR10TA PO; -CALC500C3 PO; -CIPR500T4 PO
[2021-09-10 22:44] VITALS: BP 158/99
== END 2021-09-11 00:24 | disposition home or self-care (01) ==
LOC: ER 22:44
DX: M25.511 Pain in right shoulder (principal); I12.9 Hypertensive chronic kidney disease with stage 1 through stage 4 chronic kidney disease, or unspecified chronic kidney disease; N18.9 Chronic kidney disease, unspecified; J44.9 Chronic obstructive pulmonary disease, unspecified; I25.2 Old myocardial infarction; E78.5 Hyperlipidemia, unspecified; Z79.899 Other long term (current) drug therapy; Z88.1 Allergy status to other antibiotic agents; Z88.8 Allergy status to other drugs, medicaments and biological substances; W18.39XA Other fall on same level, initial encounter; Y93.89 Activity, other specified; Y92.89 Other specified places as the place of occurrence of the external cause; Y99.8 Other external cause status
CPT/HCPCS: 73030

== ENCOUNTER 2021-09-18 18:18 | Emergency (ER) | payer MEDICARE, MEDICAID ==
[~2021-09-18] VITALS: Ht 180.3 cm; Wt 61.7 kg
[2021-09-18 19:56] LABS: Basophils # (auto) 0.1 10 ^3/uL (0-0.2); Basophils % (auto) 0.9 % (0.0-2.0); Eosinophils # (auto) 0.2 10 ^3/uL (0-0.8); Eosinophils % (auto) 2.4 % (0.0-7.0); Hematocrit 39.9 % (41.0-53.0); Hemoglobin 13.6 g/dL (13.5-17.5); Lymphocytes # (auto) 1.9 10 ^3/uL (0.4-5.4); Lymphocytes % (auto) 26.3 % (10.0-50.0); Mean Corpuscular Hemoglobin 31.1 pg (28.0-32.0); Mean Corpuscular Volume 91.4 fL (80.0-100.0); Monocytes # (auto) 0.8 10 ^3/uL (0-1.3); Monocytes % (auto) 10.5 % (0.0-12.0); Neutrophils # (auto) 4.4 10 ^3/uL (1.6-8.6); Neutrophils % (auto) 59.9 % (37.0-80.0); Nucleated Red Blood Cells % 0.1 %; Red Blood Cells 4.36 10^6/uL (4.5-5.90); Red Cell Distribution Width 14.7 % (11.8-14.3); White Blood Cell 7.3 10^3/uL (4.4-10.8)
[2021-09-18 20:15] LABS: BUN/Creatinine Ratio 10.7; Calcium 9.7 mg/dL (8.5-10.1); Potassium 4.3 mmol/L (3.5-5.1)
[2021-09-18 20:18] LABS: Bilirubin, Total 0.8 mg/dL (0.2-1.0); Total Protein 7.7 g/dL (6.4-8.2)
[2021-09-18] MEDS ORDERED: HYDROcodone-ACET 5/325MG TAB PO ONE (22:30)
[2021-09-18 22:56] LABS: Lipase 76 U/L (73-393)
[2021-09-18] MEDS ORDERED: AMIT10TA8 PO (23:54)
[2021-09-18] MEDS ORDERED: HYDR-4902 PO (23:54)
[2021-09-19] MEDS ORDERED: CEPH500C PO (01:07)
[2021-09-19 01:43] LABS: Urine WBC None Seen /hpf (0 - 3)
[2021-09-19 02:00] VITALS: BP 123/89
[2021-09-19 02:12] LABS: Urine Bacteria NONE SEEN /hpf (None Seen); Urine Blood Negative /uL (Negative)
== END 2021-09-19 03:04 | disposition home or self-care (01) ==
LOC: ER 18:26
DX: K44.9 Diaphragmatic hernia without obstruction or gangrene (principal); R91.1 Solitary pulmonary nodule; B02.9 Zoster without complications; I12.9 Hypertensive chronic kidney disease with stage 1 through stage 4 chronic kidney disease, or unspecified chronic kidney disease; N18.9 Chronic kidney disease, unspecified; J44.9 Chronic obstructive pulmonary disease, unspecified; E78.5 Hyperlipidemia, unspecified; Z86.73 Personal history of transient ischemic attack (TIA), and cerebral infarction without residual deficits; Z88.1 Allergy status to other antibiotic agents
CPT/HCPCS: 36415; 74176; 80053; 81001; 83690; 84484; 85025; 93005

== ENCOUNTER 2021-09-25 20:00 | Emergency (ER) | payer MEDICARE, MEDICAID ==
[~2021-09-25] VITALS: Ht 180.3 cm; Wt 61.7 kg
[~2021-09-25 20:00] MED LIST changes: +AMIT10TA8 PO; +CEPH500C PO; +HYDR-4902 PO
[2021-09-25 22:29] LABS: Basophils # (auto) 0.1 10 ^3/uL (0-0.2); Basophils % (auto) 0.9 % (0.0-2.0); Eosinophils # (auto) 0.2 10 ^3/uL (0-0.8); Eosinophils % (auto) 3.9 % (0.0-7.0); Hemoglobin 12.9 g/dL (13.5-17.5); Lymphocytes % (auto) 32.1 % (10.0-50.0); Mean Corpuscular Volume 91.3 fL (80.0-100.0); Monocytes # (auto) 0.7 10 ^3/uL (0-1.3); Monocytes % (auto) 10.6 % (0.0-12.0); Neutrophils # (auto) 3.3 10 ^3/uL (1.6-8.6); Neutrophils % (auto) 52.5 % (37.0-80.0); Nucleated Red Blood Cells % 0.1 %; Red Blood Cells 4.16 10^6/uL (4.5-5.90); Red Cell Distribution Width 15.1 % (11.8-14.3); White Blood Cell 6.3 10^3/uL (4.4-10.8)
[2021-09-25 22:43] LABS: Urine Bacteria FEW /hpf (None Seen); Urine Blood Negative /uL (Negative); Urine Specific Gravity 1.006 (1.001-1.035); Urine WBC <1 /hpf (0 - 3)
[2021-09-25 22:47] LABS: Albumin 3.8 g/dL (3.4-5.0); Calcium 9.3 mg/dL (8.5-10.1); Potassium 4.5 mmol/L (3.5-5.1)
[2021-09-25 22:52] LABS: Bilirubin, Total 0.4 mg/dL (0.2-1.0); Total Protein 7.6 g/dL (6.4-8.2)
[2021-09-26 01:00] VITALS: BP 123/76
[2021-09-26] MEDS ORDERED: MAGNESIUM CITRATE SOLUTION 300 ML BTL PO ONE (01:00)
== END 2021-09-26 01:49 | disposition home or self-care (01) ==
LOC: ER 20:03
DX: K59.00 Constipation, unspecified (principal); I12.9 Hypertensive chronic kidney disease with stage 1 through stage 4 chronic kidney disease, or unspecified chronic kidney disease; N18.9 Chronic kidney disease, unspecified; J44.9 Chronic obstructive pulmonary disease, unspecified; I25.2 Old myocardial infarction; E78.5 Hyperlipidemia, unspecified; Z86.73 Personal history of transient ischemic attack (TIA), and cerebral infarction without residual deficits; Z79.899 Other long term (current) drug therapy; Z88.1 Allergy status to other antibiotic agents; Z88.8 Allergy status to other drugs, medicaments and biological substances
CPT/HCPCS: 36415; 74176; 80053; 81001; 83690; 85025

== ENCOUNTER 2022-10-26 08:56 | Emergency (ER) | payer MEDICARE, MEDICAID ==
[~2022-10-26] VITALS: Ht 180.3 cm; Wt 60.0 kg
[2022-10-26 09:39] VITALS: BP 126/80
[2022-10-26 10:03] LABS: Basophils # (auto) 0 10 ^3/uL (0-0.2); Basophils % (auto) 0.4 % (0.0-2.0); Eosinophils # (auto) 0 10 ^3/uL (0-0.8); Eosinophils % (auto) 0.2 % (0.0-7.0); Hemoglobin 11.6 g/dL (13.5-17.5); Lymphocytes # (auto) 0.6 10 ^3/uL (0.4-5.4); Lymphocytes % (auto) 7.9 % (10.0-50.0); Mean Corpuscular Hemoglobin 31.2 pg (28.0-32.0); Mean Corpuscular Hgb Conc. 33.2 g/dL (32.0-36.0); Monocytes # (auto) 0.4 10 ^3/uL (0-1.3); Monocytes % (auto) 4.7 % (0.0-12.0); Neutrophils # (auto) 6.9 10 ^3/uL (1.6-8.6); Neutrophils % (auto) 86.8 % (37.0-80.0); Nucleated Red Blood Cells % 0.1 %; Red Blood Cells 3.72 10^6/uL (4.5-5.90); Red Cell Distribution Width 14.1 % (11.8-14.3); White Blood Cell 7.9 10^3/uL (4.4-10.8)
[2022-10-26 10:20] LABS: Albumin 3.2 g/dL (3.4-5.0); Calcium 8.5 mg/dL (8.5-10.1); Potassium 4.7 mmol/L (3.5-5.1)
[2022-10-26 10:23] LABS: Bilirubin, Total 0.4 mg/dL (0.2-1.0); Total Protein 6.7 g/dL (6.4-8.2)
[2022-10-26 10:31] LABS: Urine Amorphous Crystal MOD /hpf (None Seen); Urine Bacteria NONE SEEN /hpf (None Seen); Urine Blood Negative /uL (Negative); Urine Specific Gravity 1.013 (1.001-1.035); Urine WBC 8 /hpf (0 - 3)
[2022-10-26] MEDS ORDERED: SODIUM CHLORIDE 0.9% 500 ML IV ONE (10:45)
[2022-10-26] MEDS ORDERED: cefTRIAXone 1GM/50ML D5W 50 ML IV ONE (10:45)
[2022-10-26] MEDS ORDERED: ALBU108A5 IN (11:46)
[2022-10-26] MEDS ORDERED: AUG875T PO (11:46)
== END 2022-10-26 12:15 | disposition home or self-care (01) ==
LOC: EDBD 08:56 → ER 08:56
DX: H65.02 Acute serous otitis media, left ear (principal); R42 Dizziness and giddiness; J44.9 Chronic obstructive pulmonary disease, unspecified; I12.9 Hypertensive chronic kidney disease with stage 1 through stage 4 chronic kidney disease, or unspecified chronic kidney disease; N18.9 Chronic kidney disease, unspecified; E78.5 Hyperlipidemia, unspecified; F17.210 Nicotine dependence, cigarettes, uncomplicated; Z86.73 Personal history of transient ischemic attack (TIA), and cerebral infarction without residual deficits; Z88.1 Allergy status to other antibiotic agents; Z88.6 Allergy status to analgesic agent
CPT/HCPCS: 36415; 70450; 71045; 71046; 80053; 81001; 84484; 85025; 93005; 96365; 99285; J0696; J7040

== ENCOUNTER 2023-02-13 14:27 | Emergency (ER) | payer MEDICARE, MEDICAID ==
[~2023-02-13] VITALS: Ht 180.3 cm; Wt 59.2 kg
[~2023-02-13 14:27] MED LIST changes: -ACYC-161 PO; +ACYC400T16 PO; +ALBU108A5 IN; +AMIT10TA10 PO; -AMIT10TA8 PO; +AUG875T PO
[2023-02-13 15:15] LABS: Basophils # (auto) 0 10 ^3/uL (0-0.2); Basophils % (auto) 0.3 % (0.0-2.0); Eosinophils # (auto) 0.1 10 ^3/uL (0-0.8); Eosinophils % (auto) 0.8 % (0.0-7.0); Hematocrit 40.2 % (41.0-53.0); Hemoglobin 13.3 g/dL (13.5-17.5); Lymphocytes # (auto) 2.8 10 ^3/uL (0.4-5.4); Lymphocytes % (auto) 25.4 % (10.0-50.0); Mean Corpuscular Hemoglobin 30.3 pg (28.0-32.0); Mean Corpuscular Hgb Conc. 33.2 g/dL (32.0-36.0); Mean Corpuscular Volume 91.4 fL (80.0-100.0); Monocytes # (auto) 0.6 10 ^3/uL (0-1.3); Monocytes % (auto) 5.8 % (0.0-12.0); Neutrophils # (auto) 7.4 10 ^3/uL (1.6-8.6); Neutrophils % (auto) 67.7 % (37.0-80.0); Nucleated Red Blood Cells % 0.1 %; Red Blood Cells 4.39 10^6/uL (4.5-5.90); Red Cell Distribution Width 14.2 % (11.8-14.3)
[2023-02-13 15:37] LABS: Alanine Aminotransferase 18 U/L (7-40); Albumin 4.6 g/dL (3.2-4.8); Alkaline Phosphatase 113 U/L (46-116); Aspartate Aminotransferase 21 U/L (13-40); BUN/Creatinine Ratio 12.8 (10.0-20.0); Blood Urea Nitrogen 14 mg/dL (9-23); Calcium 9.7 mg/dL (8.7-10.4); Chloride 102 mmol/L (98-107); Glucose 141 mg/dL (74-106); Potassium 4.1 mmol/L (3.5-5.1); Sodium 139 mmol/L (136-145)
[2023-02-13 15:38] LABS: Bilirubin, Total 0.5 mg/dL (0.2-1.0); Total Protein 7.3 g/dL (5.7-8.2)
[2023-02-13] MEDS ORDERED: SODIUM CHLORIDE 0.9% 1,000 ML IV ONE (16:30)
[2023-02-13] MEDS ORDERED: ONDANSETRON HCL 4 MG/2 ML VIAL IV ONE (16:30)
[2023-02-13] MEDS ORDERED: fentaNYL CITRATE 100 MCG/2 ML VL IV ONE (18:30)
[2023-02-13 22:10] LABS: Urine Amorphous Crystal FEW /hpf (None Seen); Urine Bacteria NONE SEEN /hpf (None Seen); Urine Blood Negative /uL (Negative); Urine Clarity CLOUDY (Clear); Urine Color Yellow (Yellow); Urine Mucus FEW (None Seen); Urine Protein, UAD TRACE (Negative); Urine Specific Gravity 1.019 (1.001-1.035); Urine Urobilinogen Normal (Negative); Urine WBC <1 /hpf (0 - 3)
[2023-02-13 22:39] VITALS: BP 129/66; PULSE 81; RESP 18; TEMP 97.7; O2SAT 95
== END 2023-02-13 22:41 | disposition home or self-care (01) ==
LOC: ER 14:27
DX: R10.11 Right upper quadrant pain (principal); R11.2 Nausea with vomiting, unspecified; I12.9 Hypertensive chronic kidney disease with stage 1 through stage 4 chronic kidney disease, or unspecified chronic kidney disease; N18.9 Chronic kidney disease, unspecified; J44.9 Chronic obstructive pulmonary disease, unspecified; I25.2 Old myocardial infarction; E78.5 Hyperlipidemia, unspecified; F17.210 Nicotine dependence, cigarettes, uncomplicated; Z86.73 Personal history of transient ischemic attack (TIA), and cerebral infarction without residual deficits; Z59.00 Homelessness unspecified; Z79.2 Long term (current) use of antibiotics; Z79.899 Other long term (current) drug therapy; Z88.1 Allergy status to other antibiotic agents; Z88.8 Allergy status to other drugs, medicaments and biological substances
CPT/HCPCS: 36415; 71045; 74176; 80053; 81001; 83605; 83690; 84484; 85025; 96374; 96375; 99285; J2405; J3010; J7030

== ENCOUNTER 2023-09-24 19:22 | Inpatient (IN) | payer MEDICARE, MEDICAID ==
[~2023-09-24] VITALS: Ht 180.3 cm; Wt 60.4 kg
[~2023-09-24 19:22] MED LIST changes: +AMIT-400 PO; -AMIT10TA10 PO
[2023-09-24 20:14] LABS: Basophils # (auto) 0.1 10 ^3/uL (0-0.2); Basophils % (auto) 0.7 % (0.0-2.0); Eosinophils # (auto) 0.1 10 ^3/uL (0-0.8); Eosinophils % (auto) 1.7 % (0.0-7.0); Hematocrit 39.1 % (41.0-53.0); Hemoglobin 13.1 g/dL (13.5-17.5); Lymphocytes # (auto) 2.6 10 ^3/uL (0.4-5.4); Lymphocytes % (auto) 35.5 % (10.0-50.0); Mean Corpuscular Hemoglobin 31.8 pg (28.0-32.0); Mean Corpuscular Hgb Conc. 33.6 g/dL (32.0-36.0); Mean Corpuscular Volume 94.7 fL (80.0-100.0); Monocytes # (auto) 0.8 10 ^3/uL (0-1.3); Monocytes % (auto) 10.9 % (0.0-12.0); Neutrophils # (auto) 3.8 10 ^3/uL (1.6-8.6); Neutrophils % (auto) 51.2 % (37.0-80.0); Nucleated Red Blood Cells % 0.1 %; Red Blood Cells 4.12 10^6/uL (4.5-5.90); Red Cell Distribution Width 14.1 % (11.8-14.3); White Blood Cell 7.4 10^3/uL (4.4-10.8)
[2023-09-24 20:37] LABS: Alanine Aminotransferase 13 U/L (7-40); Alkaline Phosphatase 104 U/L (46-116); Anion Gap 6 (5-15); BUN/Creatinine Ratio 9.2 (10.0-20.0); Blood Urea Nitrogen 11 mg/dL (9-23); Calcium 9.8 mg/dL (8.5-10.1); Carbon Dioxide 29 mmol/L (20-30); Chloride 106 mmol/L (98-107); Glucose 87 mg/dL (74-106); INR 1.05 (0.9-1.15); Partial Thromboplastin Time 28.8 SEC (24.5-34.5); Sodium 141 mmol/L (136-145)
[2023-09-24 20:38] LABS: Albumin 4.6 g/dL (3.2-4.8); Aspartate Aminotransferase 31 U/L (13-40); Bilirubin, Total 0.9 mg/dL (0.2-1.0); Total Protein 7.5 g/dL (5.7-8.2)
[2023-09-25] VITALS (8 sets, daily range): BP systolic 101–110; BP diastolic 54–75; PULSE 67–103; RESP 14–20; TEMP 97.8–99; O2SAT 92–95
[2023-09-25] MEDS ORDERED: ALBUTEROL SULF 2.5 MG/0.5ML(0.5%) NEB SOLN NEB PRN (04:00)
[2023-09-25] MEDS ORDERED: IPRATROPIUM BROM 0.5 MG/2.5ML INH SOL NEB PRN (04:00)
[2023-09-25] MEDS ORDERED: ACETAMINOPHEN 325 MG TAB PO PRN (04:00)
[2023-09-25] MEDS ORDERED: ONDANSETRON HCL 4 MG/2 ML VIAL IV PRN (04:00)
[2023-09-25] MEDS: ENOXAPARIN SOD 40 MG/0.4 ML SYRINGE SC SCH (10:02)
[2023-09-25] MEDS: methylPREDNISolone SOD SUCC 40 MG/ML VL IV SCH (10:02)
[2023-09-26 01:55] VITALS: O2SAT 96
[2023-09-26 05:00] VITALS: BP 105/63; PULSE 69; RESP 17; TEMP 98; O2SAT 97
[2023-09-26 06:20] LABS: Chloride 106 mmol/L (98-107); Potassium 4.1 mmol/L (3.5-5.1); Sodium 138 mmol/L (136-145)
[2023-09-26 06:21] LABS: Anion Gap 2 (5-15); Calcium 9.4 mg/dL (8.7-10.4); Carbon Dioxide 30 mmol/L (20-30)
[2023-09-26 06:22] LABS: Basophils # (auto) 0 10 ^3/uL (0-0.2); Basophils % (auto) 0.4 % (0.0-2.0); Eosinophils # (auto) 0.2 10 ^3/uL (0-0.8); Eosinophils % (auto) 2.1 % (0.0-7.0); Hematocrit 37.2 % (41.0-53.0); Hemoglobin 12.7 g/dL (13.5-17.5); Lymphocytes # (auto) 2.1 10 ^3/uL (0.4-5.4); Lymphocytes % (auto) 28.2 % (10.0-50.0); Mean Corpuscular Hemoglobin 32.3 pg (28.0-32.0); Monocytes # (auto) 0.8 10 ^3/uL (0-1.3); Monocytes % (auto) 10.3 % (0.0-12.0); Neutrophils # (auto) 4.4 10 ^3/uL (1.6-8.6); Red Blood Cells 3.92 10^6/uL (4.5-5.90); Red Cell Distribution Width 14.2 % (11.8-14.3); White Blood Cell 7.5 10^3/uL (4.4-10.8)
[2023-09-26 06:26] LABS: BUN/Creatinine Ratio 14.8 (10.0-20.0); Blood Urea Nitrogen 16 mg/dL (9-23); Glucose 101 mg/dL (74-106)
[2023-09-26 06:54] VITALS: O2SAT 98
[2023-09-26 08:00] VITALS: PULSE 85; RESP 19; O2SAT 94
[2023-09-26 08:55] VITALS: BP 109/70; PULSE 77; RESP 15; TEMP 98.3; O2SAT 95
[2023-09-26] MEDS ORDERED: IPRIH IN (10:56)
[2023-09-26] MEDS ORDERED: PRED20TA2 PO (10:56)
[2023-09-26] MEDS ORDERED: ALBUAER3 IN (10:56)
[2023-09-26 11:28] VITALS: TEMP 36.8
== END 2023-09-26 13:01 | disposition home or self-care (01) | DRG 140 ==
LOC: ER 19:22 → OVERFLOW 09-25 03:59 → WEST WING 09-25 15:24
PROVIDERS: ADMIT Nurse Practitioner; ATTEND Family Medicine
DX: J44.1 Chronic obstructive pulmonary disease with (acute) exacerbation (principal); J96.21 Acute and chronic respiratory failure with hypoxia; F17.210 Nicotine dependence, cigarettes, uncomplicated; I10 Essential (primary) hypertension; E78.00 Pure hypercholesterolemia, unspecified; Z59.00 Homelessness unspecified; I25.2 Old myocardial infarction; Z86.73 Personal history of transient ischemic attack (TIA), and cerebral infarction without residual deficits; Z88.1 Allergy status to other antibiotic agents; Z88.8 Allergy status to other drugs, medicaments and biological substances
CPT/HCPCS: 36415; 70450; 71045; 80048; 80053; 83880; 84484; 85025; 85379; 85610; 85730; 93005; 93306; G0378

== ENCOUNTER 2024-01-18 20:27 | Emergency (ER) | payer MEDICARE, MEDICAID ==
[~2024-01-18] VITALS: Ht 180.3 cm; Wt 59.9 kg
[~2024-01-18 20:27] MED LIST changes: -ACE3T PO; -ACYC400T16 PO; +ALBUAER3 IN; -AMIT-400 PO; -AUG875T PO; -CEPH500C PO; -HYDR-4902 PO; +IPRIH IN; +PRED20TA2 PO
[2024-01-18] MEDS: methylPREDNISolone SOD SUCC 125 MG/2 ML VL IV ONE (23:01)
[2024-01-18] MEDS: cefTRIAXone 1GM/50ML D5W 50 ML IV ONE (23:02)
[2024-01-18 23:03] LABS: Basophils # (auto) 0 10 ^3/uL (0-0.2); Basophils % (auto) 0.4 % (0.0-2.0); Eosinophils # (auto) 0.2 10 ^3/uL (0-0.8); Eosinophils % (auto) 1.5 % (0.0-7.0); Hematocrit 36.8 % (41.0-53.0); Hemoglobin 12.4 g/dL (13.5-17.5); Lymphocytes # (auto) 2.4 10 ^3/uL (0.4-5.4); Mean Corpuscular Hemoglobin 32.1 pg (28.0-32.0); Mean Corpuscular Hgb Conc. 33.8 g/dL (32.0-36.0); Mean Corpuscular Volume 94.9 fL (80.0-100.0); Monocytes # (auto) 0.6 10 ^3/uL (0-1.3); Monocytes % (auto) 5.4 % (0.0-12.0); Neutrophils # (auto) 7.3 10 ^3/uL (1.6-8.6); Neutrophils % (auto) 69.7 % (37.0-80.0); Red Blood Cells 3.87 10^6/uL (4.5-5.90); Red Cell Distribution Width 13.8 % (11.8-14.3); White Blood Cell 10.5 10^3/uL (4.4-10.8)
[2024-01-18 23:07] VITALS: RESP 16
[2024-01-18] MEDS: IPRATROPIUM BROM 0.5 MG/2.5ML INH SOL NEB ONE (23:12)
[2024-01-18] MEDS: ALBUTEROL SULF 2.5 MG/0.5ML(0.5%) NEB SOLN NEB ONE (23:12)
[2024-01-18 23:14] VITALS: BP 105/63; TEMP 97.8
[2024-01-18 23:21] LABS: Alanine Aminotransferase 12 U/L (7-40); Albumin 4.2 g/dL (3.2-4.8); Alkaline Phosphatase 81 U/L (46-116); Anion Gap 7 (5-15); Aspartate Aminotransferase 15 U/L (13-40); BUN/Creatinine Ratio 16.8 (10.0-20.0); Blood Urea Nitrogen 19 mg/dL (9-23); Calcium 9.5 mg/dL (8.7-10.4); Carbon Dioxide 28 mmol/L (20-30); Chloride 104 mmol/L (98-107); Glucose 107 mg/dL (74-106); Magnesium 2.1 mg/dL (1.6-2.6); Potassium 4.4 mmol/L (3.5-5.1); Sodium 139 mmol/L (136-145)
[2024-01-18 23:22] LABS: Partial Thromboplastin Time 30.2 SEC (24.5-34.5); Prothrombin Time 10.6 sec (9.3-11.8); Total Protein 6.8 g/dL (5.7-8.2)
[2024-01-18] MEDS ORDERED: METH4PAK PO (23:40)
[2024-01-18] MEDS ORDERED: AUG875T PO (23:40)
[2024-01-19 00:01] VITALS: PULSE 61; RESP 16; O2SAT 100
== END 2024-01-19 00:06 | disposition home or self-care (01) ==
LOC: ER 20:27
DX: J44.1 Chronic obstructive pulmonary disease with (acute) exacerbation (principal); I12.9 Hypertensive chronic kidney disease with stage 1 through stage 4 chronic kidney disease, or unspecified chronic kidney disease; N18.9 Chronic kidney disease, unspecified; I25.2 Old myocardial infarction; E78.5 Hyperlipidemia, unspecified; M19.90 Unspecified osteoarthritis, unspecified site; F17.210 Nicotine dependence, cigarettes, uncomplicated; Z86.73 Personal history of transient ischemic attack (TIA), and cerebral infarction without residual deficits; Z98.890 Other specified postprocedural states; Z59.00 Homelessness unspecified; Z88.8 Allergy status to other drugs, medicaments and biological substances; Z79.899 Other long term (current) drug therapy
CPT/HCPCS: 36415; 71045; 71250; 80053; 83735; 83880; 84484; 85025; 85610; 85730; 93005; 94640; 96365; 96375; 99285; J0696; J2919; J7644

== ENCOUNTER 2024-03-02 13:34 | Emergency (ER) | payer MEDICARE, MEDICAID ==
[~2024-03-02] VITALS: Ht 180.3 cm; Wt 56.0 kg
[~2024-03-02 13:34] MED LIST changes: +AUG875T PO; +METH4PAK PO
[2024-03-02 14:28] LABS: Basophils # (auto) 0 10 ^3/uL (0-0.2); Basophils % (auto) 0.6 % (0.0-2.0); Eosinophils # (auto) 0.1 10 ^3/uL (0-0.8); Hematocrit 38.4 % (41.0-53.0); Hemoglobin 13.1 g/dL (13.5-17.5); Lymphocytes # (auto) 2.1 10 ^3/uL (0.4-5.4); Lymphocytes % (auto) 33.7 % (10.0-50.0); Mean Corpuscular Hemoglobin 32.2 pg (28.0-32.0); Mean Corpuscular Volume 94.7 fL (80.0-100.0); Monocytes # (auto) 0.5 10 ^3/uL (0-1.3); Monocytes % (auto) 8.1 % (0.0-12.0); Neutrophils # (auto) 3.4 10 ^3/uL (1.6-8.6); Neutrophils % (auto) 55.6 % (37.0-80.0); Nucleated Red Blood Cells % 0.1 %; Platelet Count (auto) 207 10^3/uL (140-450); Red Blood Cells 4.05 10^6/uL (4.5-5.90); Red Cell Distribution Width 13.9 % (11.8-14.3); White Blood Cell 6.1 10^3/uL (4.4-10.8)
[2024-03-02 14:54] LABS: Chloride 106 mmol/L (98-107); Potassium 4.3 mmol/L (3.5-5.1); Sodium 139 mmol/L (136-145)
[2024-03-02 14:55] LABS: Anion Gap 6 (5-15); Calcium 9.4 mg/dL (8.7-10.4); Carbon Dioxide 27 mmol/L (20-30)
[2024-03-02 15:00] LABS: Blood Urea Nitrogen 13 mg/dL (9-23); Glucose 97 mg/dL (74-106)
[2024-03-02 15:39] VITALS: BP 129/73; PULSE 93; RESP 18; O2SAT 97
[2024-03-02] MEDS ORDERED: AUG875T PO (15:45)
[2024-03-02] MEDS: cefTRIAXone SOD 1,000 MG VL IM ONE (15:52)
[2024-03-02] MEDS: TETANUS-DIPTH-ACEL PERTUSSIS 0.5ML SYR Tdap IM ONE (15:52)
[2024-03-02] MEDS: NEOMYCIN-BACITRACIN-POLYM UNITDOSE PKG TOP OINT TOP ONE (16:10)
== END 2024-03-02 16:10 | disposition home or self-care (01) ==
LOC: ER 13:34
DX: S80.811A Abrasion, right lower leg, initial encounter (principal); I12.9 Hypertensive chronic kidney disease with stage 1 through stage 4 chronic kidney disease, or unspecified chronic kidney disease; N18.9 Chronic kidney disease, unspecified; F17.210 Nicotine dependence, cigarettes, uncomplicated; E78.00 Pure hypercholesterolemia, unspecified; J45.909 Unspecified asthma, uncomplicated; J44.9 Chronic obstructive pulmonary disease, unspecified; M19.90 Unspecified osteoarthritis, unspecified site; Z79.899 Other long term (current) drug therapy; Z98.890 Other specified postprocedural states; Z88.8 Allergy status to other drugs, medicaments and biological substances; W54.0XXA Bitten by dog, initial encounter; Y93.89 Activity, other specified; Y92.89 Other specified places as the place of occurrence of the external cause; Y99.8 Other external cause status
CPT/HCPCS: 36415; 80048; 85025; 90471; 90715; 96372; 99284; J0696

== ENCOUNTER 2024-06-17 17:07 | Inpatient (IN) | payer MEDICARE, MEDICAID ==
[~2024-06-17] VITALS: Ht 180.3 cm; Wt 63.0 kg
--- NOTE | 2024-06-17 17:50 | ED.PDOC ---
History of Present Illness HPI Comments 78 y/o M presents with c/o chest pain and shortness of breath, today. Patient is a poor historian and endorses on sudden and unprovoked onset of symptoms, last night. He comments on pain being the left-side of his chest and it being non-radiating. Patient admits to Hx of 2x [place] and 4x CVA in the past, with no additional relevant or pertinent Hx, such as recent injuries, travel, or sick contact, reported. He denies having any palpitations, nausea, vomiting, fever, chills, cough, or other associated symptoms or modifiers at this time. Per previous [facility] medical record, patient has a known Hx of acute hypoxic respiratory failure, asthma, CKF, COPD, CVA, HLD, HTN, [place], tobacco use, and homelessness. Time Seen by MD: 17:40 Primary Care Provider: NONE Reviewed Notes: Nurses Notes, Medications, Allergies Allergies: Coded Allergies: Chlorpromazine (Verified Allergy, Unknown, 08/02/16) Ciprofloxacin (Verified Allergy, Unknown, 08/07/16) Home Meds Active Scripts Amoxicillin & Pot Clavulanate (AUGMENTIN TABLET) 875 Mg Tb, 875 MG PO BID for 7 Days, #14 TAB 0 Refills Prov:MELVINA MAN ARCHITECTURAL MODEL MAKER 03/02/24 Methylprednisolone (Medrol Dosepak) 4 Mg Trevon, 4 MG PO UD, #21 TAB UAD Prov:DILCIA DE MD 01/18/24 Amoxicillin & Pot Clavulanate (AUGMENTIN TABLET) 875 Mg Tb, 875 MG PO BID, #14 TAB Prov:DILCIA DE MD 01/18/24 Prednisone (Prednisone) 20 Mg Tab, 20 MG PO DAILY, #5 MG Prov:SEVERO RUBY MD 09/26/23 Ipratropium [place] Hfa (Atrovent Hfa) 17 Mcg Aer, 17 MCG IN QID, #1 AER Prov:SEVERO RUBY MD 09/26/23 Albuterol Sulfate (VENTOLIN MDI) 90 Mcg Ih, 90 MCG IN QID, #1 INH Prov:SEVERO RUBY MD 09/26/23 Albuterol Sulfate (Albuterol Sulfate Hfa) 108 Mcg/Act Aer, 108 MCG IN TID, #90 AER Prov:SERGIO VALVERDE 10/26/22 Information Source: Patient Mode of Arrival: Ambulatory Severity: Moderate Timing: Hours Duration: Since onset Prehospital treatment: None Past Medical History PAST MEDICAL HISTORY: Arthritis, Asthma, CKF, COPD, CVA, High Lipids, HTN, [place] Past Medical History (Other): acute hypoxic respiratory failure Surgical History: Hernia Repair Family History Family History: No family hx of Cancer, No family hx of DM, No family hx of HTN, No family hx ofKidney joe, No family hx of Liver joe, No family hx of Lung joe, No family hx of Stroke, Family hx of heart joe Social History Smoker: Cigarettes Alcohol: Sober Drugs: Denies Drug Use Lives In: Homeless Constitutional: reports: weakness; denies: chills, diaphoresis, fatigue, fever, malaise, sweats, others EENTM: denies: blurred vision, double vision, ear bleeding, ear discharge, ear drainage, ear pain, ear ringing, eye pain, eye redness, hearing loss, mouth pain, mouth swelling, nasal discharge, nose bleeding, nose congestion, nose pain, photophobia, tearing, throat pain, throat swelling, voice changes, others Respiratory: reports: shortness of breath; denies: cough, hemoptysis, orthopnea, SOB at rest, SOB with excertion, stridor, wheezing, others Cardiovascular: denies: chest pain, dizzy spells, diaphoresis, Dyspnea on exertion, edema, irregular heart beat, left arm pain, lightheadedness, palpitations, PND, syncope, others Gastrointestinal: denies: abdomen distended, abdominal pain, blood streaked bowels, constipated, diarrhea, dysphagia, difficulty swallowing, hematemesis, melena, nausea, poor appetite, poor fluid intake, rectal bleeding, rectal pain, vomiting, others Genitourinary: denies: burning, dysuria, flank pain, frequency, hematuria, incontinence, penile discharge, penile sore, pain, testicle pain, testicle swelling, urgency, others Neurological: denies: dizziness, fainting, headache, left sided numbness, left sided weakness, numbness, paresthesia, pre-existing deficit, right sided numbness, right sided weakness, seizure, speech problems, tingling, tremors, weakness, others Musculoskeletal: denies: back pain, gout, joint pain, joint swelling, muscle pain, muscle stiffness, neck pain, others Integumetry: denies: bruises, change in color, change in hair/nails, dryness, laceration, lesions, lumps, rash, wounds, others Allergic/Immunocompromised: denies: Difficulty Healing, Frequent Infections, Hives, Itching, others Hematologic/Lymphatic: denies: anemia, blood clots, easy bleeding, easy bruising, swollen glands, others Endocrine: denies: excessive hunger, excessive sweating, excessive thirst, excessive urination, flushing, intolerance to cold, intolerance to heat, unexplained weight gain, unexplained weight loss, others Psychiatric: denies: anxiety, bipolar disorder, depression, hopeless, panic disorder, schizophrenia, sleepless, suicidal, others Physical Exam General Appearance: Moderate Distress HEENT: Normal ENT Inspection, Pharynx Normal, TMs Normal Neck: Full Range of Motion, Non-Tender, Normal, Normal Inspection Respiratory: Chest Non-Tender, Lungs Clear, No Accessory Muscle Use, No Respiratory Distress, Normal Breath Sounds Cardiovascular: No Edema, No JVD, No Murmur, No Gallop, Normal Peripheral Pulses, Regular Rate/Rhythm Breast Exam: Deferred Gastrointestinal: No Organomegaly, Non Tender, No Pulsatile Mass, Normal Bowel Sounds, Soft Genitalia: Deferred Pelvic: Deferred Rectal: Deferred Extremities: No calf tenderness, Normal capillary refill, Normal inspection, Normal range of motion, Non-tender, No pedal edema Musculoskeletal : Apperance: Normal Neurologic: Alert, last repairer helper II-XII nml as Tested, Motor Weakness, Normal Affect, Normal Mood, No Sensory Deficits Cerebellar Function: Normal Reflexes: Normal Skin: Dry, Normal Color, Warm Lymphatic: No Adenopathy Was a procedure done? Was a procedure done?: No EKG EKG : Pulse Rate (adult): 77 [place]: RAD Cardiac Rhythm: NSR Hypertrophy: LVH Differential Dx Considerations may include: Generalized weakness, pneumonia, ACS, [place] X-Ray, Labs, Meds, VS Vital Signs Date Time Temp Pulse Resp B/P (MAP) Pulse Ox O2 Delivery O2 Flow Rate FiO2 06/17/24 17:53 98.3 95 20 116/73 (87) 98 Lab Test 06/17/24 17:45 Range/Units White Blood Count 9.6 4.4-10.8 10^3/uL Red Blood Count 4.02 L 4.5-5.90 10^6/uL Hemoglobin 12.2 L 13.5-17.5 g/dL Hematocrit 37.3 L 41.0-53.0 % Mean Corpuscular Volume 92.7 80.0-100.0 fL Mean Corpuscular Hemoglobin 30.4 28.0-32.0 pg Mean Corpuscular Hemoglobin Concent 32.7 32.0-36.0 g/dL Red Cell Distribution Width 12.7 11.8-14.3 % Platelet Count 406 140-450 10^3/uL Mean Platelet Volume 8.0 6.9-10.8 fL Neutrophils (%) (Auto) 68.7 37.0-80.0 % Lymphocytes (%) (Auto) 20.5 10.0-50.0 % Monocytes (%) (Auto) 9.5 0.0-12.0 % Eosinophils (%) (Auto) 0.9 0.0-7.0 % Basophils (%) (Auto) 0.4 0.0-2.0 % Neutrophils # (Auto) 6.6 1.6-8.6 10 ^3/uL Lymphocytes # (Auto) 2.0 0.4-5.4 10 ^3/uL Monocytes # (Auto) 0.9 0-1.3 10 ^3/uL Eosinophils # (Auto) 0.1 0-0.8 10 ^3/uL Basophils # (Auto) 0 0-0.2 10 ^3/uL Nucleated Red Blood Cells 0.0 % D-Dimer, Quantitative 1.08 H 0.0-0.49 mg/L FEU Sodium Level 135 L 136-145 mmol/L Potassium Level 4.1 3.5-5.1 mmol/L Chloride Level 98 98-107 mmol/L Carbon Dioxide Level 30 20-31 mmol/L Anion Gap 7 5-15 Blood Urea Nitrogen 22 9-23 mg/dL Creatinine 1.06 0.700-1.30 mg/dL Glomerular Filtration Rate Calc 71 >90 mL/min BUN/Creatinine Ratio 20.8 H 10.0-20.0 Serum Glucose 115 H 74-106 mg/dL Calcium Level 10.0 8.7-10.4 mg/dL Troponin I High Sensitivity 3 L </=54 ng/L B-Type Natriuretic Peptide 72.05 0-100 pg/mL The patient's CBC is within normal limits The chemistry panel is within normal limits The D-dimer is 1.08 The BNP is within normal limits. The troponin level is within normal limits The chest x-ray shows: IMPRESSION: Hyperinflation of the lungs with left lower lung zone pneumonia /atelectasis. We are ordering a CT scan of the chest to rule out PE Images Reviewed?: Images reviewed and evaluated by me Time of 1ST Reevaluation: 18:10 Reevaluation 1ST: Unchanged Patient Education/Counseling: Diagnosis, Treatment, Prognosis Family Education/Counseling: No Family Present Additional Information reviewed discharged summary report from 09/26/23 Departure 1 Departure Time of Disposition: 19:51 Impression: Primary Impression: Acute dyspnea Additional Impression: Elevated d-dimer Disposition: ADMITTED INPATIENT Admit to: [facility] Condition: Fair Critical Care Note Critical Care Time?: No Stability Stability form required: Yes Unstable for transfer: Telemetry monitoring (Telemetry monitoring required), ED Physician Assesment (Clinical assesment) Heart Score Heart Score: Heart Score Response (Comments) Value History Moderate Suspicious 1 EKG Normal 0 Age >65 2 Risk Factors >3 or Hx ASHD 2 Troponin Normal limit 0 Total 5 I personally scribed for ASHLY JACOBS MD ([email or web address]) on 06/17/24 at 17:50. Electronically submitted by René Montoya ([email or web address]). ASHLY JACOBS MD Jun 17, 2024 17:50
[2024-06-17 18:08] LABS: Basophils # (auto) 0 10 ^3/uL (0-0.2); Basophils % (auto) 0.4 % (0.0-2.0); Eosinophils # (auto) 0.1 10 ^3/uL (0-0.8); Eosinophils % (auto) 0.9 % (0.0-7.0); Hematocrit 37.3 % (41.0-53.0); Hemoglobin 12.2 g/dL (13.5-17.5); Lymphocytes % (auto) 20.5 % (10.0-50.0); Mean Corpuscular Hemoglobin 30.4 pg (28.0-32.0); Mean Corpuscular Hgb Conc. 32.7 g/dL (32.0-36.0); Mean Corpuscular Volume 92.7 fL (80.0-100.0); Monocytes # (auto) 0.9 10 ^3/uL (0-1.3); Monocytes % (auto) 9.5 % (0.0-12.0); Neutrophils # (auto) 6.6 10 ^3/uL (1.6-8.6); Neutrophils % (auto) 68.7 % (37.0-80.0); Platelet Count (auto) 406 10^3/uL (140-450); Red Blood Cells 4.02 10^6/uL (4.5-5.90); Red Cell Distribution Width 12.7 % (11.8-14.3); White Blood Cell 9.6 10^3/uL (4.4-10.8)
[2024-06-17 18:16] LABS: Potassium 4.1 mmol/L (3.5-5.1)
[2024-06-17 18:17] LABS: Anion Gap 7 (5-15); Carbon Dioxide 30 mmol/L (20-31)
[2024-06-17 18:22] LABS: BUN/Creatinine Ratio 20.8 (10.0-20.0); Blood Urea Nitrogen 22 mg/dL (9-23)
[2024-06-17 18:50] LABS: Chloride 98 mmol/L (98-107); Glucose 115 mg/dL (74-106); Sodium 135 mmol/L (136-145)
--- NOTE | 2024-06-17 19:44 | DVH ---
XY CHEST TWO VIEWS ROUTINE CLINICAL HISTORY: sob COMPARISON: XY CHEST TWO VIEWS ROUTINE on DOS: 10/26/22, CHEST TWO VIEWS ROUTINE on DOS: 04/09/21 TECHNIQUE: Frontal and lateral view of the chest was obtained FINDINGS: Lines and Tubes: None Lungs: Hyperinflation of the lungs. Left lower lung zone opacification. Pleura: No effusion. No pneumothorax. Cardiomediastinal contours: Unremarkable Bones: No acute osseous abnormality. IMPRESSION: Hyperinflation of the lungs with left lower lung zone pneumonia /atelectasis.
[2024-06-17 21:30] VITALS: RESP 12; O2SAT 98
[2024-06-17] MEDS: AZITHROMYCIN 500MG/ 250ML 250 ML IV ONE (21:30)
[2024-06-17] MEDS: cefTRIAXone 1GM/50ML D5W 50 ML IV ONE (21:30)
[2024-06-17] MEDS: SODIUM CHLORIDE 0.9% 1,000 ML IV SCH (21:30)
[2024-06-17] MEDS ORDERED: IPRATROPIUM BROM 0.5 MG/2.5ML INH SOL NEB PRN (22:15)
[2024-06-17] MEDS ORDERED: ALBUTEROL SULF 2.5 MG/0.5ML(0.5%) NEB SOLN NEB PRN (22:15)
--- NOTE | 2024-06-17 22:23 | DVHHPRES ---
History of Present Illness Resident Creating Document: TIFFANIE SAAB RESIDENT History of Present Illness This is a 78 Years old male with past medical history of HTN, CAD, CVA with rt sided weakness, bronchial asthma, COPD presented to the ED with a chief complaint of left-sided chest pain and shortness of breath for 1 day prior to this admission. Patient states that chest pain started which was sharp, stabbing pain 8/10 ,continous, localized and associated with shortness of breath and cough with whitish sputum. The patient denies fever, malaise, generalized body ache, sore throat, dizziness, diaphoresis, abdominal pain, nausea, vomiting, dysuria, any sick contact, hematuria or any change in bowel movement. The patient had history of 4 times stroke and 2 [place] in the last past couple of years and his speech is not clear. He is homeless and has no PCP and not taking any medication on regular basis. Past Medical History Hypertension, bronchial asthma, COPD, CVA with right-sided weakness, CAD Past Surgical History Hernia repair Family History: None Smoke: No ALCOHOL: none Drugs: None Lives: Homeless Past Social History Homeless and lives alone Nonsmoker, nonalcoholic and never tried any drugs Review of Systems Constitutional: No: Fever, Chills, Sweats, Weakness, Malaise, Other Eyes: No: Pain, Vision change, Conjunctivae inflammation, Eyelid inflammation, Other, Redness ENT: No: Ear pain, Ear discharge, Nose pain, Nose discharge, Nose congestion, Mouth pain, Mouth swelling, Throat pain, Throat swelling, Other Respiratory: Cough, Shortness of breath, Sputum; No: Dry, SOB with excertion, Wheezing, Hemoptysis, Pleuritic Pain, Wheezing, Other Cardiovascular: Chest Pain; No: Palpitations, Orthopnea, Paroxysmal Noc. Dyspnea, Edema, Lt Headedness, Other Gastrointestinal: No: Nausea, Vomiting, Abdominal Pain, Diarrhea, Constipation, Melena, Hematochezia, Other Genitourinary: No Dysuria, No Frequency, No Incontinence, No Hematuria, No Retention, No Other Musculoskeletal: No: other, neck pain, shoulder pain, arm pain, back pain, hand pain, leg pain, foot pain Skin: No: Rash, Lesions, Jaundice, Bruising, Other Neurological: No: Weakness, Numbness, Incoordination, Change in speech, Confusion, Seizures, Other Allergies: Coded Allergies: Chlorpromazine (Verified Allergy, Unknown, 08/02/16) Ciprofloxacin (Verified Allergy, Unknown, 08/07/16) Medications Current Medications Medications Dose Ordered Sig/Siva Route Start Time Stop Time Status Last Admin Dose Admin Ceftriaxone Sodium 50 ml @ 100 mls/hr DAILY IV 06/18/24 10:00 Azithromycin 250 ml @ 125 mls/hr DAILY IV 06/18/24 10:00 UNV Sodium Chloride 1,000 ml @ 75 mls/hr [id number] IV 06/17/24 21:30 Famotidine 20 mg DAILY PO 06/18/24 10:00 Enoxaparin Sodium 30 mg DAILY SC 06/18/24 10:00 Albuterol 2.5 mg Q6HPRN PRN NEB 06/17/24 22:15 Ipratropium [place] 0.5 mg Q6HPRN PRN NEB 06/17/24 22:15 Exam Vital Signs Vital Signs Date Time Temp Pulse Resp B/P (MAP) Pulse Ox O2 Delivery O2 Flow Rate FiO2 06/17/24 20:18 77 06/17/24 17:53 98.3 20 116/73 (87) 98 Exam Physical examination: General Appearance: Alert, Oriented X3, Cooperative, mild distress HEENT: Atraumatic, PERRLA, EOMI, Mucous membrane moist/pink Respiratory: Breath sounds on the right side and left upper jaw of the lung and coarse crackles in the left lower lung zone Cardiovascular: Regular rate, Normal S1, Normal S2, No murmurs, no chest wall tenderness Abdominal: Normal bowel sounds, Soft, No tenderness, No hepatospenomegaly, No masses Extremities: No clubbing, No cyanosis, No edema, Normal pulses, No tenderness/swelling Skin: No rashes, No breakdown, No significant lesion Neuro: Normal gait, Normal speech, Strength at 5/5 X4 ext, Normal tone, Sensation intact, Cranial nerves 3-12 NL, Reflexes 2+ Psych/Mental Status: Mental status NL, Mood NL Labs/Xrays Labs Test 06/17/24 17:45 Range/Units White Blood Count 9.6 4.4-10.8 10^3/uL Red Blood Count 4.02 L 4.5-5.90 10^6/uL Hemoglobin 12.2 L 13.5-17.5 g/dL Hematocrit 37.3 L 41.0-53.0 % Mean Corpuscular Volume 92.7 80.0-100.0 fL Mean Corpuscular Hemoglobin 30.4 28.0-32.0 pg Mean Corpuscular Hemoglobin Concent 32.7 32.0-36.0 g/dL Red Cell Distribution Width 12.7 11.8-14.3 % Platelet Count 406 140-450 10^3/uL Mean Platelet Volume 8.0 6.9-10.8 fL Neutrophils (%) (Auto) 68.7 37.0-80.0 % Lymphocytes (%) (Auto) 20.5 10.0-50.0 % Monocytes (%) (Auto) 9.5 0.0-12.0 % Eosinophils (%) (Auto) 0.9 0.0-7.0 % Basophils (%) (Auto) 0.4 0.0-2.0 % Neutrophils # (Auto) 6.6 1.6-8.6 10 ^3/uL Lymphocytes # (Auto) 2.0 0.4-5.4 10 ^3/uL Monocytes # (Auto) 0.9 0-1.3 10 ^3/uL Eosinophils # (Auto) 0.1 0-0.8 10 ^3/uL Basophils # (Auto) 0 0-0.2 10 ^3/uL Nucleated Red Blood Cells 0.0 % D-Dimer, Quantitative 1.08 H 0.0-0.49 mg/L FEU Sodium Level 135 L 136-145 mmol/L Potassium Level 4.1 3.5-5.1 mmol/L Chloride Level 98 98-107 mmol/L Carbon Dioxide Level 30 20-31 mmol/L Anion Gap 7 5-15 Blood Urea Nitrogen 22 9-23 mg/dL Creatinine 1.06 0.700-1.30 mg/dL Glomerular Filtration Rate Calc 71 >90 mL/min BUN/Creatinine Ratio 20.8 H 10.0-20.0 Serum Glucose 115 H 74-106 mg/dL Calcium Level 10.0 8.7-10.4 mg/dL Troponin I High Sensitivity 3 L </=54 ng/L B-Type Natriuretic Peptide 72.05 0-100 pg/mL Assessment/Plan Assessment/Plan Assessment and plan: # Community acquired Gram-positive/Gram-negative pneumonia - patient is on room air - IV normal saline at 75 mL/hour - Ralphb with ipratropium and albuterol q.6 p.r.n. - Chest xray demonstrated hyperinflation of the lungs with left lower lung zone pneumonia - CT angio revealed left upper lobe pneumonia and Low attenuating area with peripheral enhancement within the area of pneumonia may represent abscess - Patient was initially given IV ceftriaxone 1 g and IV azithromycin 500 mg once - Discontinued ceftriaxone and started IV Zosyn 3.375 mg Q 8 hours and IV azithromycin 500 mg daily - Ordered UA/, sputum C/S # Rule out pulmonary embolism - D-dimer is elevated - Ordered CT angio of the chest # Chronic COPD - - Duoneb with ipratropium and albuterol q.6 p.r.n. # PUD prophylaxis - Pepcid 20 mg p.o. daily # DVT prophylaxis - Lovenox 40 mg sc daily Goal of care discussed with the patient for more than 20 minutes full code Plan discussed with Dr. Hernandez Plan discussed with: Patient, Other My Orders Orders - TIFFANIE SAAB RESIDENT Procedure Category Date Status Time Admit ADMIT 06/17/24 Transmitted 21:22 Urinalysis LAB 06/17/24 Logged 21:22 Drug Screen LAB 06/17/24 Logged 21:22 Respiratory Culture BREA 06/17/24 Logged W/ Gs 21:22 Ceftriaxone 1gm/50ml PHA 06/18/24 In Process D5w (Rocephin) 10:00 Azithromycin 500mg/ PHA 06/17/24 In Process 250ml (Zithromax 50 21:30 Azithromycin 500mg/ PHA 06/18/24 Pending 250ml (Zithromax 50 10:00 Sodium Chloride 0.9% PHA 06/17/24 In Process 21:30 Famotidine Tablet PHA 06/18/24 In Process (Pepcid Tablet) 10:00 Enoxaparin Sodium PHA 06/18/24 In Process (Lovenox) 10:00 Covid19 Antigen Jana LAB 06/17/24 Logged Rapid Influenza A&B LAB 06/17/24 Logged 21:32 Mrsa Screen BREA 06/17/24 Logged 21:32 Albuterol Medneb PHA 06/17/24 In Process (Ventolin Medneb) 22:15 Ipratropium Medneb PHA 06/17/24 In Process (Atrovent Medneb) 22:15 TIFFANIE SAAB RESIDENT Jun 17, 2024 22:23
[2024-06-18] VITALS (9 sets, daily range): BP systolic 91–106; BP diastolic 36–62; PULSE 66–79; RESP 17–19; TEMP 97.8–98.7; O2SAT 96–99
[2024-06-18] MEDS ORDERED: IPRATROPIUM BROM 0.5 MG/2.5ML INH SOL NEB SCH
[2024-06-18] MEDS ORDERED: ALBUTEROL SULF 2.5 MG/0.5ML(0.5%) NEB SOLN NEB SCH
[2024-06-18] MEDS: IOHEXOL 300 MG/ML 100ML BOTTLE IJ ONE (00:01)
[2024-06-18 03:05] LABS: Urine Bacteria None Seen /hpf (None Seen)
[2024-06-18 03:21] LABS: Urine Blood Negative /uL (Negative); Urine Clarity Clear (Clear); Urine Color Yellow (Yellow); Urine Mucus FEW (None Seen); Urine Protein, UAD TRACE (Negative); Urine Specific Gravity 1.035 (1.001-1.035); Urine Squamous Epithelial Cell FEW /hpf (<5); Urine Urobilinogen 2 mg/dL (Negative); Urine WBC 5 /hpf (0 - 3)
[2024-06-18 03:31] LABS: Amphetamine Screen, Urine Neg (NEGATIVE); Barbiturate Scree,Urine Neg (NEGATIVE); Benzodiazephine Screen, Urine Neg (NEGATIVE); Cannabinoid Screen, Urine Neg (NEGATIVE); Cocaine Screen, Urine Neg (NEGATIVE); Opiate Scree,Urine Neg (NEGATIVE); Phencyclidine Screen, Urine Neg (NEGATIVE)
[2024-06-18 03:33] LABS: COVID19 ANTIGEN SOFIA FIA NEGATIVE (NEGATIVE)
[2024-06-18 03:34] LABS: Rapid Influenza A Negative (Negative); Rapid Influenza B Negative (Negative)
--- NOTE | 2024-06-18 04:49 | DVH ---
Exam: CT CT CHEST/AB/PL W CON- IV ONLY History: Shortness of breath and abdominal pain Comparison Study: Chest radiograph performed on 06/17/2024 Technique: Multidetector CT of the chest, abdomen and pelvis was performed from lower neck to pubic s ymphysis. 100 mL Omnipaque 300 intravenous contrast was administered during this examination. Axial, coronal and sagittal multiplanar reformats were performed by the technologist on a separate workstati on. Radiation Dose Information: CT Dose: CTDI volume is 5.72 mGy. Dose-length product is 424.3 mGy*cm Findings: Lower neck: Unremarkable appearance of the thyroid. Lungs: There is left upper lobe consolidation. There is peripherally enhancing area of low attenuati on within the region of consolidation that measures 1.3 x 1.3 cm. Mild centrilobular emphysema. Central airways: Patent. Pleura: No pneumothorax or pleural effusion. Heart/Vascular Structures: The heart is normal in size. Coronary artery calcifications. No pericardi al effusion. Lymph Nodes: No adenopathy Liver: The liver is normal in size. No focal lesions. Normal hepatic vascular enhancement. Gallbladder and Biliary Tree: Gallbladder is unremarkable. No biliary ductal dilatation. Spleen: Unremarkable Pancreas: The pancreas is normal in appearance without focal lesions or abnormal enhancement. Adrenal Glands: Unremarkable Kidneys: Kidneys demonstrate normal symmetric enhancement without focal lesions, calculi or hydroneph rosis. Bladder: Unremarkable Bowel: The stomach is grossly normal in appearance. Small bowel and colon are normal in caliber and d istribution. The appendix is not visualized; however, no secondary findings of acute appendicitis id entified. Intraperitoneal cavity: No pneumoperitoneum. No ascites. Lymphadenopathy: No mesenteric, retroperitoneal or periportal lymphadenopathy. Abdominal Wall and Mesentery: Unremarkable. Vasculature: The visualized abdominal aorta is normal in size and caliber. Abdominal and pelvic vess els demonstrate normal enhancement. Pelvic Organs: Unremarkable Musculoskeletal: No aggressive focal bony lesions, acute fractures or dislocation. IMPRESSION: 1. Left upper lobe pneumonia. Low attenuating area with peripheral enhancement within the area of pne umonia may represent abscess. 2. Coronary artery calcifications. 3. Mild centrilobular emphysema. 4. No acute abnormality in the abdomen or pelvis. All CT scans at this medical facility are performed using dose modulation techniques as appropriate t o a performed exam including the following: Automated exposure control was utilized; adjustment of th e MA and/or KV according to patient size; and use of iterative reconstruction technique.
[2024-06-18] MEDS: PIPERACILLIN-TAZOB 3.375GM 100 ML IV SCH (06:25)
[2024-06-18] MEDS ORDERED: cefTRIAXone 1GM/50ML D5W 50 ML IV SCH (10:00)
[2024-06-18] MEDS: FAMOTIDINE 20 MG TAB PO SCH (10:16)
[2024-06-18] MEDS: ENOXAPARIN SOD 30 MG/0.3 ML SYRINGE SC SCH (10:17)
--- NOTE | 2024-06-18 11:15 | DVHPN2 ---
Progress Note Date Seen: Jun 18, 2024 Medical Necessity Reason Pt with a Central, PICC or Fol: No Subjective Patient reports: No new complaints Review of Systems: HEENT:Normal, CVS:Normal, RESPIRATORY:Normal, GI:Normal, :Normal, MSK:Normal, NEURO:Normal Objective vital signs Vital Sign Date Time Temp Pulse Resp B/P (MAP) Pulse Ox O2 Delivery O2 Flow Rate FiO2 06/18/24 09:00 97.8 67 17 100/61 (74) 98 97.8 06/18/24 05:46 Oxymizer 3 N/A medications Current Medications Medications Dose Ordered Sig/Siva Route Start Time Stop Time Status Last Admin Dose Admin Azithromycin 250 ml @ 125 mls/hr DAILY@2100 IV 06/18/24 21:00 Future Hold Sodium Chloride 1,000 ml @ 75 mls/hr [id number] IV 06/17/24 21:30 06/18/24 10:18 75 MLS/HR Famotidine 20 mg DAILY PO 06/18/24 10:00 06/18/24 10:16 20 MG Enoxaparin Sodium 30 mg DAILY SC 06/18/24 10:00 06/18/24 10:17 30 MG Albuterol 2.5 mg Q6HPRN PRN NEB 06/17/24 22:15 Ipratropium [place] 0.5 mg Q6HPRN PRN NEB 06/17/24 22:15 Piperacillin Sod/ Tazobactam Sod 100 ml @ 25 mls/hr Q8HR IV 06/18/24 06:00 06/18/24 06:25 25 MLS/HR Examination: GENERAL:Normal, HEENT:Normal, NECK:Normal, LUNGS:Normal, LUNGS:Abnormal (on oxygen), CVS:Normal, ABDOMEN:Normal, MSK:Normal, SKIN:Normal, NEURO:Normal, :Normal laboratory and microbiology Laboratory Tests 06/17/24 17:45 Test 06/17/24 17:45 Range/Units Serum Glucose 115 H 74-106 mg/dL Problem List/Assessment/Plan Problem List/Assessment/Plan #1 acute resp failure: cont oxygen #2 left pneumonia- gram positive/neg: iv zosyn #3 copd with exacerbation: bronchodilators #4 htn #5 h/o cva with right weakness #6 tobacco abuse- advised to quit, time spent 11 mins #7 cad #8 s/p bowel surgery for obstruction #9 registered sex offender advance care planning- full code- time spent 19 mins Plan discussed with: Patient Date of Service: Jun 18, 2024 Billing Provider: LISSETTE MADDEN MD Common Visit Codes: [id number] INP/OBS CARE(HIGH) Secondary Visit Codes: 85740-[id number] CHNG SMOKING >10MIN, 28499-[id number] CARE PLAN 30 MINUTES LISSETTE MADDEN MD Jun 18, 2024 11:15
[2024-06-18] MEDS: IPRATROPIUM BROM 0.5 MG/2.5ML INH SOL NEB SCH (12:00)
[2024-06-18] MEDS: ALBUTEROL SULF 2.5 MG/0.5ML(0.5%) NEB SOLN NEB SCH (12:00)
[2024-06-18] MEDS ORDERED: AZITHROMYCIN 500MG/ 250ML 250 ML IV SCH (21:00)
[2024-06-18] MEDS: DOCUSATE SOD 100 MG CAP PO SCH (22:40)
[2024-06-19] VITALS (15 sets, daily range): BP systolic 97–114; BP diastolic 62–77; PULSE 65–87; RESP 16–20; TEMP 97.4–98.6; O2SAT 91–100
[2024-06-19 07:14] LABS: Anion Gap 5 (5-15); Carbon Dioxide 28 mmol/L (20-31); Chloride 103 mmol/L (98-107); Potassium 4.5 mmol/L (3.5-5.1); Sodium 136 mmol/L (136-145)
[2024-06-19 07:15] LABS: Calcium 9.1 mg/dL (8.7-10.4)
[2024-06-19 07:18] LABS: Basophils # (auto) 0 10 ^3/uL (0-0.2); Basophils % (auto) 0.4 % (0.0-2.0); Eosinophils # (auto) 0.1 10 ^3/uL (0-0.8); Eosinophils % (auto) 1.7 % (0.0-7.0); Hematocrit 31.7 % (41.0-53.0); Hemoglobin 10.7 g/dL (13.5-17.5); Lymphocytes # (auto) 1.1 10 ^3/uL (0.4-5.4); Mean Corpuscular Hemoglobin 31.1 pg (28.0-32.0); Mean Corpuscular Hgb Conc. 33.8 g/dL (32.0-36.0); Mean Corpuscular Volume 91.9 fL (80.0-100.0); Monocytes # (auto) 0.7 10 ^3/uL (0-1.3); Monocytes % (auto) 10.8 % (0.0-12.0); Neutrophils # (auto) 4.9 10 ^3/uL (1.6-8.6); Neutrophils % (auto) 71.1 % (37.0-80.0); Platelet Count (auto) 340 10^3/uL (140-450); Red Blood Cells 3.45 10^6/uL (4.5-5.90); Red Cell Distribution Width 12.3 % (11.8-14.3)
[2024-06-19 07:20] LABS: BUN/Creatinine Ratio 13.9 (10.0-20.0); Blood Urea Nitrogen 14 mg/dL (9-23)
[2024-06-19 09:08] LABS: Glucose 106 mg/dL (74-106)
--- NOTE | 2024-06-19 10:09 | DVH ---
CHEST RADIOGRAPH Indication: LEFT PNEUMONIA Technique: Single frontal view of the chest was obtained COMPARISON: XY CHEST PORTABLE on DOS: 01/18/24, XY CHEST PORTABLE on DOS: 09/24/23, XY CHEST PORTABLE on DOS: 02/13/23, XY CHEST XRAY 1 VIEW on DOS: 10/26/22 FINDINGS: Lines and Tubes: None Lungs: Slightly increased left lung airspace disease. Pleura: No effusion. No pneumothorax. Cardiomediastinal contours: Unremarkable Bones: Unremarkable IMPRESSION: Slightly increased left mid and lower lung airspace disease.
[2024-06-19 10:12] LABS: Platelet Estimate Adequate; RBC Morphology Normal
[2024-06-19] MEDS: AZITHROMYCIN 500MG/ 250ML 250 ML IV SCH (12:30)
[2024-06-19] MEDS: PIPERACILLIN-TAZOB 3.375GM 100 ML IV SCH (16:11)
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
[2024-06-19] MEDS: methylPREDNISolone SOD SUCC 40 MG/ML VL IV SCH (21:29)
[2024-06-20] VITALS (14 sets, daily range): BP systolic 97–164; BP diastolic 51–84; PULSE 61–85; RESP 16–19; TEMP 97.6–99; O2SAT 95–100
[2024-06-20] MEDS ORDERED: MORPHINE SULFATE INJ 2 MG/ml SYRG IV PRN (01:00)
[2024-06-20] MEDS: HYDROcodone-ACET 5/325MG TAB PO PRN (01:20)
[2024-06-20 07:36] LABS: Basophils # (auto) 0 10 ^3/uL (0-0.2); Basophils % (auto) 0.1 % (0.0-2.0); Eosinophils # (auto) 0 10 ^3/uL (0-0.8); Hematocrit 31.6 % (41.0-53.0); Hemoglobin 10.8 g/dL (13.5-17.5); Lymphocytes # (auto) 1.2 10 ^3/uL (0.4-5.4); Lymphocytes % (auto) 18.5 % (10.0-50.0); Mean Corpuscular Hemoglobin 31.5 pg (28.0-32.0); Mean Corpuscular Hgb Conc. 34.2 g/dL (32.0-36.0); Mean Corpuscular Volume 92.2 fL (80.0-100.0); Monocytes # (auto) 0.2 10 ^3/uL (0-1.3); Monocytes % (auto) 3.1 % (0.0-12.0); Neutrophils # (auto) 5.1 10 ^3/uL (1.6-8.6); Neutrophils % (auto) 78.3 % (37.0-80.0); Nucleated Red Blood Cells % 0.1 %; Platelet Count (auto) 358 10^3/uL (140-450); Red Blood Cells 3.43 10^6/uL (4.5-5.90); Red Cell Distribution Width 12.5 % (11.8-14.3); White Blood Cell 6.5 10^3/uL (4.4-10.8)
[2024-06-20 07:40] LABS: Albumin 3.6 g/dL (3.2-4.8); Alkaline Phosphatase 82 U/L (46-116); Anion Gap 6 (5-15); BUN/Creatinine Ratio 13.1 (10.0-20.0); Blood Urea Nitrogen 13 mg/dL (9-23); Calcium 9.1 mg/dL (8.7-10.4); Carbon Dioxide 27 mmol/L (20-31); Chloride 104 mmol/L (98-107); Potassium 4.7 mmol/L (3.5-5.1); Sodium 137 mmol/L (136-145); Total Protein 6.2 g/dL (5.7-8.2)
[2024-06-20 07:42] LABS: Alanine Aminotransferase 50 U/L (7-40); Aspartate Aminotransferase 47 U/L (13-40); Glucose 168 mg/dL (74-106)
[2024-06-20 08:27] LABS: Bilirubin, Total 0.3 mg/dL (0.2-1.0)
[2024-06-20 16:31] LABS: Base Excess 0.8 mmol/L (-2.0-3.0)
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
[2024-06-21] VITALS (11 sets, daily range): BP systolic 91–127; BP diastolic 56–69; PULSE 59–79; RESP 14–20; TEMP 97.6–98.3; O2SAT 95–100
[2024-06-21] MEDS: FUROSEMIDE 20 MG/2 ML VIAL IV ONE (05:05)
[2024-06-21 08:23] LABS: Albumin 3.8 g/dL (3.2-4.8); Alkaline Phosphatase 86 U/L (46-116); Anion Gap 6 (5-15); BUN/Creatinine Ratio 13.7 (10.0-20.0); Blood Urea Nitrogen 13 mg/dL (9-23); Calcium 9.9 mg/dL (8.7-10.4); Carbon Dioxide 29 mmol/L (20-31); Chloride 103 mmol/L (98-107); Potassium 4.7 mmol/L (3.5-5.1); Sodium 138 mmol/L (136-145)
[2024-06-21 08:24] LABS: Bilirubin, Total 0.3 mg/dL (0.2-1.0); Total Protein 6.5 g/dL (5.7-8.2)
[2024-06-21 08:26] LABS: Basophils # (auto) 0 10 ^3/uL (0-0.2); Eosinophils # (auto) 0 10 ^3/uL (0-0.8); Hematocrit 33.5 % (41.0-53.0); Hemoglobin 11.4 g/dL (13.5-17.5); Lymphocytes # (auto) 1.2 10 ^3/uL (0.4-5.4); Lymphocytes % (auto) 10.4 % (10.0-50.0); Mean Corpuscular Hemoglobin 31.3 pg (28.0-32.0); Mean Corpuscular Hgb Conc. 33.9 g/dL (32.0-36.0); Mean Corpuscular Volume 92.4 fL (80.0-100.0); Monocytes # (auto) 0.6 10 ^3/uL (0-1.3); Monocytes % (auto) 5.2 % (0.0-12.0); Neutrophils # (auto) 9.5 10 ^3/uL (1.6-8.6); Neutrophils % (auto) 84.4 % (37.0-80.0); Platelet Count (auto) 412 10^3/uL (140-450); Red Blood Cells 3.63 10^6/uL (4.5-5.90); Red Cell Distribution Width 12.6 % (11.8-14.3); White Blood Cell 11.3 10^3/uL (4.4-10.8)
[2024-06-21 08:34] LABS: Alanine Aminotransferase 91 U/L (7-40); Aspartate Aminotransferase 90 U/L (13-40); Glucose 130 mg/dL (74-106)
--- NOTE | 2024-06-21 11:44 | DVHDS2 ---
Discharge Summary Date of Admission Jun 17, 2024 at 21:22 Date of Discharge: Jun 21, 2024 Labs/Diagnostic Data: Laboratory Results Test 06/21/24 07:08 06/20/24 16:20 06/19/24 06:31 06/18/24 02:45 White Blood Count 11.3 10^3/uL (4.4-10.8) Red Blood Count 3.63 10^6/uL (4.5-5.90) Hemoglobin 11.4 g/dL (13.5-17.5) Hematocrit 33.5 % (41.0-53.0) Mean Corpuscular Volume 92.4 fL (80.0-100.0) Mean Corpuscular Hemoglobin 31.3 pg (28.0-32.0) Mean Corpuscular Hemoglobin Concent 33.9 g/dL (32.0-36.0) Red Cell Distribution Width 12.6 % (11.8-14.3) Platelet Count 412 10^3/uL (140-450) Mean Platelet Volume 8.2 fL (6.9-10.8) Neutrophils (%) (Auto) 84.4 % (37.0-80.0) Lymphocytes (%) (Auto) 10.4 % (10.0-50.0) Monocytes (%) (Auto) 5.2 % (0.0-12.0) Eosinophils (%) (Auto) 0.0 % (0.0-7.0) Basophils (%) (Auto) 0.0 % (0.0-2.0) Neutrophils # (Auto) 9.5 10 ^3/uL (1.6-8.6) Lymphocytes # (Auto) 1.2 10 ^3/uL (0.4-5.4) Monocytes # (Auto) 0.6 10 ^3/uL (0-1.3) Eosinophils # (Auto) 0 10 ^3/uL (0-0.8) Basophils # (Auto) 0 10 ^3/uL (0-0.2) Nucleated Red Blood Cells 0.0 % Sodium Level 138 mmol/L (136-145) Potassium Level 4.7 mmol/L (3.5-5.1) Chloride Level 103 mmol/L (98-107) Carbon Dioxide Level 29 mmol/L (20-31) Anion Gap 6 (5-15) Blood Urea Nitrogen 13 mg/dL (9-23) Creatinine 0.95 mg/dL (0.700-1.30) Glomerular Filtration Rate Calc 81 mL/min (>90) BUN/Creatinine Ratio 13.7 (10.0-20.0) Serum Glucose 130 mg/dL (74-106) Calcium Level 9.9 mg/dL (8.7-10.4) Total Bilirubin 0.3 mg/dL (0.2-1.0) Aspartate Amino Transferase (AST) 90 U/L (13-40) Alanine Aminotransferase (ALT) 91 U/L (7-40) Alkaline Phosphatase 86 U/L (46-116) Total Protein 6.5 g/dL (5.7-8.2) Albumin 3.8 g/dL (3.2-4.8) Blood Gas Specimen Type Arterial Blood Gas Sample Site Right brachial Blood Gas Patient Temperature 37.0 Arterial Blood Date Drawn [id number] Arterial Blood pH 7.464 (7.350-7.450) Arterial Blood Partial Pressure CO2 34.5 mmHg (35.0-48.0) Arterial Blood Partial Pressure O2 80.9 mmHg (83.0-108.0) Arterial Blood HCO3 24.2 mmol/L (21.0-28.0) Arterial Blood Oxygen Saturation 96.0 % (94.0-98.0) Arterial Blood Base Excess 0.8 mmol/L (-2.0-3.0) Arterial Blood Oxyhemoglobin 95.0 % (94.0-98.0) Arterial Blood Carboxyhemoglobin 0.7 % (0.5-1.5) Arterial Blood Methemoglobin 0.3 % (0.0-1.5) Brent Test N/a Blood Gas Total Hemoglobin 11.60 g/dL (13.5-17.5) Blood Gas Modality Room air FiO2 % 21.0 Platelet Estimate Adequate Red Blood Cell Morphology Normal Urine Color Yellow (Yellow) Urine Clarity Clear (Clear) Urine pH 6.0 (5.0-9.0) Urine Specific [place] 1.035 (1.001-1.035) Urine Protein Trace (Negative) Urine Ketones Negative (Negative) Urine Blood Negative /uL (Negative) Urine Nitrite Negative (Negative) Urine Bilirubin Negative (Negative) Urine Urobilinogen 2 mg/dL (Negative) Urine Leukocyte Esterase 2+ /uL (Negative) Urine RBC 2 /hpf (0 - 3) Urine WBC 5 /hpf (0 - 3) Urine Squamous Epithelial Cells Few /hpf (<5) Urine Bacteria None seen /hpf (None Seen) Urine Mucus Few (None Seen) Urine Glucose Normal mg/dL (Normal) Urine Opiates Screen Neg (NEGATIVE) Urine Fentanyl Screen Neg (NEGATIVE) Urine Barbiturates Screen Neg (NEGATIVE) Urine Phencyclidine Screen Neg (NEGATIVE) Urine Amphetamines Screen Neg (NEGATIVE) Urine Benzodiazepines Screen Neg (NEGATIVE) Urine Cocaine Screen Neg (NEGATIVE) Urine Cannabinoids Screen Neg (NEGATIVE) Influenza Type A Antigen Negative (Negative) Influenza Type B Antigen Negative (Negative) SARS-CoV-2 Antigen (Rapid) Negative (NEGATIVE) Test 06/17/24 17:45 D-Dimer, Quantitative 1.08 mg/L FEU (0.0-0.49) Troponin I High Sensitivity 3 ng/L (</=54) B-Type Natriuretic Peptide 72.05 pg/mL (0-100) Other Laboratory Tests 06/21/24 07:08 Brief Hx & Hospital Course: see dictated note Condition at Discharge: Fair Final Diagnosis/Problems List pneumonia Discharge Disposition: Home Discharge Instruct/Medications Diet: Cardiac 2g Na,low cholest Activity: Light activity Follow Up/Referral: fu with pcp in 1 wk Medications: resume home meds script to pharmacy Discharge Statement: "Patient was advised to return to the ER or call 911 if any headaches, dizziness, shortness of breath, chest pain, abdominal pain, bleeding, fevers, or worsening of medical condition. Patient was counseled about treatment plan, medications, possible side effects, patientverbalized understanding. All questions were answered to the best of my ability. This discharge took greater then 30 minutes in planning, reviewing documentation, counseling the patient, and discussing with other team members." ASSESSMENT ASSESSMENT Assessment pneumonia Date of Service: Jun 21, 2024 Billing Provider: LISSETTE MADDEN MD Common Visit Codes: [id number] DISCH DAY >30min LISSETTE MADDEN MD Jun 21, 2024 11:44
[2024-06-21] MEDS ORDERED: PRED20TA2 PO (11:49)
[2024-06-21] MEDS ORDERED: DOXY-286 PO (11:49)
[2024-06-21] MEDS ORDERED: ALBUAER3 IN (11:49)
--- NOTE | 2024-06-21 12:14 | DVHDS ---
DATE OF DISCHARGE: 06/21/2024 HISTORY OF PRESENT ILLNESS: The patient is an 78-year-old gentleman who was admitted with history of increasing shortness of breath and has history of COPD, hypertension, CVA, coronary artery disease and tobacco abuse. HOSPITAL COURSE: The patient had a CT of chest, abdomen and pelvis that showed a left upper lobe pneumonia. The patient was placed on antibiotics. His influenza test was negative. The patient is now improved in his symptoms. He has also been arranged for home oxygen at 2 liters per minute. The patient will be discharged home to resume his home medications as well as to be on doxycycline 100 mg p.o. b.i.d. for 7 days, albuterol MDI p.r.n., and prednisone 20 mg q.a.m. for 5 days. He will follow up with his primary in 1 week. FINAL DIAGNOSES: Therefore, * Acute respiratory failure. * Left-sided pneumonia, Gram-positive, Gram-negative. * Chronic obstructive pulmonary disease with exacerbation. * Hypertension. * History of cerebrovascular accident with right weakness. * Tobacco abuse. * Coronary artery disease. * Status post bowel surgery. * History of being a registered sex offender. Time spent in discharge planning and review of plan with the patient and nursing was 39 minutes. MD SAMIR Vera/MARK TID: [id number] RECEIPT: [id number]
--- NOTE | 2024-06-22 12:33 | ECG ---
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
== END 2024-06-21 16:30 | disposition home or self-care (01) | DRG 133 ==
LOC: ER 17:13 → OVERFLOW 21:22 → EAST 06-18 05:37
PROVIDERS: ATTEND Internal Medicine
DX: J96.00 Acute respiratory failure, unspecified whether with hypoxia or hypercapnia (principal); J15.69 Pneumonia due to other Gram-negative bacteria; I69.351 Hemiplegia and hemiparesis following cerebral infarction affecting right dominant side; J15.9 Unspecified bacterial pneumonia; J44.0 Chronic obstructive pulmonary disease with (acute) lower respiratory infection; J44.1 Chronic obstructive pulmonary disease with (acute) exacerbation; I25.10 Atherosclerotic heart disease of native coronary artery without angina pectoris; E78.5 Hyperlipidemia, unspecified; I10 Essential (primary) hypertension; F17.210 Nicotine dependence, cigarettes, uncomplicated; J98.4 Other disorders of lung; Z59.00 Homelessness unspecified; Z79.899 Other long term (current) drug therapy
CPT/HCPCS: 36415; 36600; 71045; 71046; 71260; 74177; 80048; 80053; 80307; 81001; 82805; 83880; 84484; 85025; 85379; 87081; 87086; 87426; 87804; 93005; 94640; 97163; G0378; J2543

== ENCOUNTER 2024-07-02 12:08 | Emergency (ER) | payer MEDICARE, MEDICAID ==
[~2024-07-02] VITALS: Ht 180.3 cm; Wt 59.0 kg
[~2024-07-02 12:08] MED LIST changes: -ALBU108A5 IN; -AUG875T PO; +DOXY-286 PO; -IPRIH IN; -METH4PAK PO
[2024-07-02 13:08] VITALS: BP 130/66; PULSE 91; RESP 18; TEMP 98.2; O2SAT 98
[2024-07-02] MEDS ORDERED: ACET-1080 PO (13:30)
[2024-07-02] MEDS ORDERED: CLIN1CAP70 PO (13:30)
[2024-07-02] MEDS: ACETAMINOPHEN 325 MG TAB PO ONE (13:35)
--- NOTE | 2024-07-02 13:39 | ED.PDOC ---
Eye-HPI HPI Comments A 78-YEAR-OLD MALE PRESENTS WITH A CHIEF COMPLAINT OF MOUTH/TOOTH PAIN X 7 YEARS. PATIENT STATES THAT HE HAD A ROOT CANAL DONE 7 YEARS AGO AND HIS MOUTH HAS BEEN GIVING HIM PAIN SINCE. PATIENT IS REQUESTING TO HAVE ALL OF HIS TEETH REMOVED IN THE ER. PATIENT WAS EDUCATED ON THE NEED TO SEE A DENTIST OR ORAL SURGEON. PT DENIES FEVER, SOB, CHEST PAIN, NAUSEA, VOMITING, HEADACHE, DIZZINESS AND OTHER COMPLAINTS. NO OTHER SYMPTOMS OR MODIFYING FACTORS PRESENT AT THIS TIME. Chief Complaint: Tooth Pain Time Seen by MD: 13:23 Primary Care Provider: NONE Reviewed Notes: Nurses Notes, Medications, Allergies Allergies: Coded Allergies: Chlorpromazine (Verified Allergy, Unknown, 08/02/16) Ciprofloxacin (Verified Allergy, Unknown, 08/07/16) Home Meds Active Scripts Acetaminophen (Tylenol 8 Hour Arthritis) 650 Mg Tab, 650 MG PO TID, #30 TAB Prov:SERGIO VALVERDE 07/02/24 Clindamycin Hcl (Clindamycin Hcl) 300 Mg Cap, 1 CAP PO TID, #30 CAP Prov:SERGIO VALVERDE 07/02/24 Albuterol Sulfate (VENTOLIN MDI) 90 Mcg Ih, 90 MCG IN TIDPRN PRN for 30 Days, #1 INH 2 Refills Prov:LISSETTE MADDEN MD 06/21/24 Prednisone (Prednisone) 20 Mg Tab, 20 MG PO QAM for 5 Days, #10 MG Prov:LISSETTE MADDEN MD 06/21/24 Doxycycline Hyclate (DOXYCYCLINE HYCLATE) 100 Mg Tab, 1 TAB PO BID for 7 Days, #14 TAB Prov:LISSETTE MADDEN MD 06/21/24 Information Source: Patient Mode of Arrival: Ambulatory Timing: Months, Came on: Gradually Duration: Since onset, Days Prehospital treatment: None Quality: Pain, Red Lids: Normal Conjunctiva: Normal Cornea: Normal Pupils: Normal EOM: Normal Fundus: Normal Anterior chamber: Normal Mouth Location: Right, Left, Upper, Lower, Tooth/Teeth, Gums Mouth: Premolar, Molar, Tender, Carious, Normal ENT Ear Exam: Normal, Normal, Normal Nose: Normal Sinuses: Normal Oropharynx: Normal Onset: Spontaneous Throat Exposed to: None History of: None Associated signs and symptoms: Tooth Pain Past Medical History PAST MEDICAL HISTORY: Arthritis, Asthma, CKF, COPD, CVA, High Lipids, HTN, MD Surgical History: Hernia Repair Family History Family History: No family hx of Cancer, No family hx of DM, No family hx of HTN, No family hx ofKidney joe, No family hx of Liver joe, No family hx of Lung joe, No family hx of Stroke, Family hx of heart joe Social History Smoker: Cigarettes Alcohol: Sober Drugs: Denies Drug Use Lives In: Homeless Constitutional: denies: chills, diaphoresis, fatigue, fever, malaise, sweats, weakness, others EENTM: reports: mouth pain; denies: blurred vision, double vision, ear bleeding, ear discharge, ear drainage, ear pain, ear ringing, eye pain, eye redness, hearing loss, mouth swelling, nasal discharge, nose bleeding, nose congestion, nose pain, photophobia, tearing, throat pain, throat swelling, voice changes, others Respiratory: denies: cough, hemoptysis, orthopnea, SOB at rest, shortness of breath, SOB with excertion, stridor, wheezing, others Cardiovascular: denies: chest pain, dizzy spells, diaphoresis, Dyspnea on exertion, edema, irregular heart beat, left arm pain, lightheadedness, palpitations, PND, syncope, others Gastrointestinal: denies: abdomen distended, abdominal pain, blood streaked bowels, constipated, diarrhea, dysphagia, difficulty swallowing, hematemesis, melena, nausea, poor appetite, poor fluid intake, rectal bleeding, rectal pain, vomiting, others Genitourinary: denies: burning, dysuria, flank pain, frequency, hematuria, incontinence, penile discharge, penile sore, pain, testicle pain, testicle swelling, urgency, others Neurological: denies: dizziness, fainting, headache, left sided numbness, left sided weakness, numbness, paresthesia, pre-existing deficit, right sided numbness, right sided weakness, seizure, speech problems, tingling, tremors, weakness, others Musculoskeletal: denies: back pain, gout, joint pain, joint swelling, muscle pain, muscle stiffness, neck pain, others Integumetry: denies: bruises, change in color, change in hair/nails, dryness, laceration, lesions, lumps, rash, wounds, others Allergic/Immunocompromised: denies: Difficulty Healing, Frequent Infections, Hives, Itching, others Hematologic/Lymphatic: denies: anemia, blood clots, easy bleeding, easy bruising, swollen glands, others Endocrine: denies: excessive hunger, excessive sweating, excessive thirst, excessive urination, flushing, intolerance to cold, intolerance to heat, unexplained weight gain, unexplained weight loss, others Psychiatric: denies: anxiety, bipolar disorder, depression, hopeless, panic disorder, schizophrenia, sleepless, suicidal, others All Other Systems: Reviewed and Negative Physical Exam General Appearance: No Apparent Distress, Normal HEENT: PERRL/EOMI, Pharynx Normal, TMs Normal, Other (ERYTHEMA AND SWELLING ON UPPER AND LOWER GUM AROUND TOOTH, DENTAL DECAY, NO FACIAL SWELLING. ) Neck: Full Range of Motion, Non-Tender, Normal, Normal Inspection Respiratory: Chest Non-Tender, Lungs Clear, No Accessory Muscle Use, No Respiratory Distress, Normal Breath Sounds Cardiovascular: No Edema, No JVD, No Murmur, No Gallop, Normal Peripheral Pulses, Regular Rate/Rhythm Breast Exam: Deferred Gastrointestinal: No Organomegaly, Non Tender, No Pulsatile Mass, Normal Bowel Sounds, Soft Genitalia: Deferred Pelvic: Deferred Rectal: Deferred Extremities: No calf tenderness, Normal capillary refill, Normal inspection, Normal range of motion, Non-tender, No pedal edema Musculoskeletal : Apperance: Normal Neurologic: Alert, specialty person II-XII nml as Tested, No Motor Deficits, Normal Affect, Normal Mood, No Sensory Deficits Cerebellar Function: Normal Reflexes: Normal Skin: Dry, Normal Color, Warm Peripheral Pulses: 2+ carotid (R), 2+ carotid (L) Lymphatic: No Adenopathy Was a procedure done? Was a procedure done?: No EENT DIFF Eye: N/A Ear: Otitis Externa, Otitis Media, Dental, Pharyngitis X-Ray, Labs, Meds, VS Vital Signs Date Time Temp Pulse Resp B/P (MAP) Pulse Ox O2 Delivery O2 Flow Rate FiO2 07/02/24 13:08 98.2 91 18 130/66 (87) 98 98.2 07/02/24 13:08 91 18 98 07/02/24 12:42 98.2 91 18 130/66 (87) 98 Current Medications Medications (Trade) Dose Ordered Sig/Siva Route Start Time Stop Time Status Last Admin Acetaminophen (Tylenol Tablet) 1,000 mg ONCE ONCE PO 07/02/24 13:30 07/02/24 13:31 DC 07/02/24 13:35 X-Ray, Labs, Meds, VS Comment EXTERNAL MEDICAL RECORDS REVIEWED: [NONE] INDEPENDENT HISTORIANS: [NONE] SOCIAL DETERMINANTS OF HEALTH: [NONE] LABS ORDERED: NONE REVIEWED AND INTERPRETED RESULTS: NONE IMAGING ORDERED: NONE TREATMENTS ORDERED: TYLENOL 1GM PO PROCEDURES PERFORMED: NONE CRITICAL CARE TIME: NONE I HAVE DISCUSSED THE PATIENT WITH THE ATTENDING PHYSICIAN DR. POZO AND HE AGREES WITH THE PATIENT'S PLAN OF CARE AND DISPOSITION. GIVEN THE HISTORY AND PRESENT ILLNESS OF THE PATIENT, AFTER REVIEWING LABS, IMAGING, AND COURSE OF TREATMENT ADMINISTERED DURING THEIR ED VISIT, THERE IS LOW SUSPICION FOR RED FLAG FINDINGS. BASED ON HISTORY OF PRESENT ILLNESS, AND PHYSICAL EXAM, PATIENT WILL BE DISCHARGED HOME. DISCUSSED PLAN FOR DISCHARGE HOME WITH RX IBUPROFEN AND CLINDAMYCIN. MEDICATION WARNINGS GIVEN. SHARED DECISION MAKING: DISCUSSED WITH PATIENT THAT THEIR WORKUP WAS NORMAL. PAT IENT INSTRUCTED TO FOLLOW UP WITH PRIMARY CARE PROVIDER IN 1-2 DAYS FOR RE- EVALUATION OF SYMPTOMS. PATIENT VERBALIZES UNDERSTANDING TO RETURN TO ED FOR NEW OR WORSENING SYMPTOMS OR IF FOLLOW UP WITH PCP CANNOT BE OBTAINED. PATIENT FEELS COMFORTABLE GOING HOME AT THIS TIME. ALL QUESTIONS ADDRESSED AT TIME OF DISCHARGE. Time of 1ST Reevaluation: 13:46 Reevaluation 1ST: Improved Patient Education/Counseling: Diagnosis, Treatment, Prognosis Family Education/Counseling: Diagnosis, Treatment, Prognosis, Need For Follow Up Medical Screening: No EMC Exist At This Time Departure 1 Departure Time of Disposition: 13:46 Impression: Primary Impression: Chronic dental infection Additional Impression: Chronic dental pain Disposition: 01 HOME / SELF CARE / HOMELESS Condition: Stable Additional Instructions: FOLLOW UP WITH YOUR PCP IN 1-2 DAYS, RETURN TO THE ER IF YOUR SYMPTOMS WORSEN. e-Prescriptions Acetaminophen (Tylenol 8 Hour Arthritis) 650 Mg Tab 650 MG PO TID, #30 TAB Prov: SERGIO VALVERDE 07/02/24 Clindamycin Hcl (Clindamycin Hcl) 300 Mg Cap 1 CAP PO TID, #30 CAP Prov: SERGIO VALVERDE 07/02/24 Discharged With: Self Critical Care Note Critical Care Time?: No Stability Stability form required: No Heart Score Heart Score: Heart Score Response (Comments) Value History N/A 0 EKG N/A 0 Age N/A 0 Risk Factors N/A 0 Troponin N/A 0 Total 0 I personally scribed for SERGIO VALVERDE ([email or web address]) on 07/02/24 at 13:39. Electronically submitted by Ruel oD ([email or web address]). SERGIO VALVERDE Jul 02, 2024 13:39
== END 2024-07-02 13:45 | disposition home or self-care (01) ==
LOC: ER 12:08
DX: K02.9 Dental caries, unspecified (principal); G89.29 Other chronic pain; K04.7 Periapical abscess without sinus; I12.9 Hypertensive chronic kidney disease with stage 1 through stage 4 chronic kidney disease, or unspecified chronic kidney disease; N18.9 Chronic kidney disease, unspecified; E78.5 Hyperlipidemia, unspecified; I25.2 Old myocardial infarction; F17.210 Nicotine dependence, cigarettes, uncomplicated; Z98.890 Other specified postprocedural states; Z88.1 Allergy status to other antibiotic agents; Z86.73 Personal history of transient ischemic attack (TIA), and cerebral infarction without residual deficits; Z79.52 Long term (current) use of systemic steroids; Z59.00 Homelessness unspecified

== ENCOUNTER 2024-08-25 00:09 | Inpatient (IN) | payer MEDICARE, MEDICAID ==
[2024-08-24 14:46] VITALS: O2SAT 97
[~2024-08-25] VITALS: Ht 180.3 cm; Wt 62.0 kg
[~2024-08-25 00:09] MED LIST changes: +ACET-1080 PO; +CLIN1CAP70 PO
[2024-08-25 00:35] LABS: Basophils # (auto) 0.1 10 ^3/uL (0-0.2); Basophils % (auto) 0.8 % (0.0-2.0); Eosinophils # (auto) 0.1 10 ^3/uL (0-0.8); Eosinophils % (auto) 1.3 % (0.0-7.0); Hematocrit 38.7 % (41.0-53.0); Hemoglobin 13.2 g/dL (13.5-17.5); Lymphocytes # (auto) 2.1 10 ^3/uL (0.4-5.4); Lymphocytes % (auto) 30.3 % (10.0-50.0); Mean Corpuscular Hemoglobin 31.9 pg (28.0-32.0); Mean Corpuscular Hgb Conc. 34.2 g/dL (32.0-36.0); Mean Corpuscular Volume 93.3 fL (80.0-100.0); Monocytes # (auto) 0.7 10 ^3/uL (0-1.3); Monocytes % (auto) 10.6 % (0.0-12.0); Platelet Count (auto) 268 10^3/uL (140-450); Red Blood Cells 4.15 10^6/uL (4.5-5.90); Red Cell Distribution Width 15.5 % (11.8-14.3)
[2024-08-25 00:48] LABS: Alanine Aminotransferase 14 U/L (7-40); Albumin 4.7 g/dL (3.2-4.8); Anion Gap 9 (5-15); Aspartate Aminotransferase 24 U/L (13-40); BUN/Creatinine Ratio 15.1 (10.0-20.0); Blood Urea Nitrogen 18 mg/dL (9-23); Carbon Dioxide 29 mmol/L (20-31); Chloride 102 mmol/L (98-107); Potassium 4.3 mmol/L (3.5-5.1); Sodium 140 mmol/L (136-145); Total Protein 7.6 g/dL (5.7-8.2)
[2024-08-25 00:51] LABS: Alkaline Phosphatase 127 U/L (46-116); Bilirubin, Total 0.3 mg/dL (0.2-1.0); Calcium 10.5 mg/dL (8.7-10.4); Glucose 127 mg/dL (74-106)
[2024-08-25] MEDS: SODIUM CHLORIDE 0.9% 1,000 ML IV ONE (01:00)
--- NOTE | 2024-08-25 01:04 | ED.PDOC ---
GI ASSESSMENT HPI Comments 78 year old male presents to the ED with a chief complaint of abdominal pain onset 4 days. Patient states he has been experiencing diffused abdominal pain as well as nausea, constipation, last bowel movement was about 4 days ago. Patient rates pain 8/10. PMHx arthritis, asthma, HTN, HLD, CVA, CHF, COPD, MA. Denies chest pain, shortness of breath, vomiting, diarrhea, fevers, chills, dysuria. No other symptoms or modifying factors present at this time. Chief Complaint: Abdominal Pain Time Seen by MD: 00:30 Primary Care Provider: NONE Reviewed Notes: Medications, Allergies Allergies: Coded Allergies: Chlorpromazine (Verified Allergy, Unknown, 08/02/16) Ciprofloxacin (Verified Allergy, Unknown, 08/07/16) Home Meds Active Scripts Acetaminophen (Tylenol 8 Hour Arthritis) 650 Mg Tab, 650 MG PO TID, #30 TAB Prov:SERGIO VALVERDE 07/02/24 Clindamycin Hcl (Clindamycin Hcl) 300 Mg Cap, 1 CAP PO TID, #30 CAP Prov:SERGIO VALVERDE 07/02/24 Albuterol Sulfate (VENTOLIN MDI) 90 Mcg Ih, 90 MCG IN TIDPRN PRN for 30 Days, #1 INH 2 Refills Prov:LISSETTE MADDEN MD 06/21/24 Prednisone (Prednisone) 20 Mg Tab, 20 MG PO QAM for 5 Days, #10 MG Prov:LISSETTE MADDEN MD 06/21/24 Doxycycline Hyclate (DOXYCYCLINE HYCLATE) 100 Mg Tab, 1 TAB PO BID for 7 Days, #14 TAB Prov:LISSETTE MADDEN MD 06/21/24 Mode of Arrival: Ambulatory Timing: Days Duration: Since onset Prehospital treatment: None Quality: Aching Vomitus: None Severity: Moderate Recent: None Recent Hx of: None Pain Location: Diffuse Modifying Factors: Nothing Associated sign and symptoms: Nausea, Constipation, Abdominal Pain Past Medical History PAST MEDICAL HISTORY: Arthritis, Asthma, CKF, COPD, CVA, High Lipids, HTN, MA Surgical History: Hernia Repair Family History Family History: No family hx of Cancer, No family hx of DM, No family hx of HTN, No family hx ofKidney joe, No family hx of Liver jeo, No family hx of Lung joe, No family hx of Stroke, Family hx of heart joe Social History Smoker: Cigarettes Alcohol: Sober Drugs: Denies Drug Use Lives In: Homeless Constitutional: denies: chills, diaphoresis, fatigue, fever, malaise, sweats, weakness, others EENTM: denies: blurred vision, double vision, ear bleeding, ear discharge, ear drainage, ear pain, ear ringing, eye pain, eye redness, hearing loss, mouth pain, mouth swelling, nasal discharge, nose bleeding, nose congestion, nose pain, photophobia, tearing, throat pain, throat swelling, voice changes, others Respiratory: denies: cough, hemoptysis, orthopnea, SOB at rest, shortness of breath, SOB with excertion, stridor, wheezing, others Cardiovascular: denies: chest pain, dizzy spells, diaphoresis, Dyspnea on exertion, edema, irregular heart beat, left arm pain, lightheadedness, palpitations, PND, syncope, others Gastrointestinal: reports: abdominal pain, constipated, nausea; denies: abdomen distended, blood streaked bowels, diarrhea, dysphagia, difficulty swallowing, hematemesis, melena, poor appetite, poor fluid intake, rectal bleeding, rectal pain, vomiting, others Genitourinary: denies: burning, dysuria, flank pain, frequency, hematuria, incontinence, penile discharge, penile sore, pain, testicle pain, testicle swelling, urgency, others Neurological: denies: dizziness, fainting, headache, left sided numbness, left sided weakness, numbness, paresthesia, pre-existing deficit, right sided numbness, right sided weakness, seizure, speech problems, tingling, tremors, weakness, others Musculoskeletal: denies: back pain, gout, joint pain, joint swelling, muscle pain, muscle stiffness, neck pain, others Integumetry: denies: bruises, change in color, change in hair/nails, dryness, laceration, lesions, lumps, rash, wounds, others Allergic/Immunocompromised: denies: Difficulty Healing, Frequent Infections, Hives, Itching, others Hematologic/Lymphatic: denies: anemia, blood clots, easy bleeding, easy bruising, swollen glands, others Endocrine: denies: excessive hunger, excessive sweating, excessive thirst, excessive urination, flushing, intolerance to cold, intolerance to heat, unexplained weight gain, unexplained weight loss, others Psychiatric: denies: anxiety, bipolar disorder, depression, hopeless, panic disorder, schizophrenia, sleepless, suicidal, others All Other Systems: Reviewed and Negative Physical Exam General Appearance: No Apparent Distress, Normal HEENT: Normal ENT Inspection, Pharynx Normal, TMs Normal Neck: Full Range of Motion, Non-Tender, Normal, Normal Inspection Respiratory: Chest Non-Tender, Lungs Clear, No Accessory Muscle Use, No Respiratory Distress, Normal Breath Sounds Cardiovascular: No Edema, No JVD, No Murmur, No Gallop, Normal Peripheral Pulses, Regular Rate/Rhythm Breast Exam: Deferred Gastrointestinal: No Organomegaly, Non Tender, No Pulsatile Mass, Normal Bowel Sounds, Soft Genitalia: Deferred Pelvic: Deferred Rectal: Deferred Extremities: No calf tenderness, Normal capillary refill, Normal inspection, Normal range of motion, Non-tender, No pedal edema Musculoskeletal : Apperance: Normal Neurologic: Alert, emissions engineer II-XII nml as Tested, No Motor Deficits, Normal Affect, Normal Mood, No Sensory Deficits Cerebellar Function: Normal Reflexes: Normal Skin: Dry, Normal Color, Warm Lymphatic: No Adenopathy Was a procedure done? Was a procedure done?: No GI differential Dx Differential Diagnosis: Cholecystitis, Constipation, Gastritis/PUD, Gastro enteritis, Pancreatitis, UTI, Dehydration, Food Poisoning X-Ray, Labs, Meds, VS Vital Signs Date Time Temp Pulse Resp B/P (MAP) Pulse Ox O2 Delivery O2 Flow Rate FiO2 08/25/24 03:50 70 18 136/82 08/25/24 02:52 70 18 136/82 (100) 96 08/25/24 00:09 97.9 84 20 101/68 (79) 95 Lab Test 08/25/24 00:22 Range/Units White Blood Count 7.0 4.4-10.8 10^3/uL Red Blood Count 4.15 L 4.5-5.90 10^6/uL Hemoglobin 13.2 L 13.5-17.5 g/dL Hematocrit 38.7 L 41.0-53.0 % Mean Corpuscular Volume 93.3 80.0-100.0 fL Mean Corpuscular Hemoglobin 31.9 28.0-32.0 pg Mean Corpuscular Hemoglobin Concent 34.2 32.0-36.0 g/dL Red Cell Distribution Width 15.5 H 11.8-14.3 % Platelet Count 268 140-450 10^3/uL Mean Platelet Volume 7.8 6.9-10.8 fL Neutrophils (%) (Auto) 57.0 37.0-80.0 % Lymphocytes (%) (Auto) 30.3 10.0-50.0 % Monocytes (%) (Auto) 10.6 0.0-12.0 % Eosinophils (%) (Auto) 1.3 0.0-7.0 % Basophils (%) (Auto) 0.8 0.0-2.0 % Neutrophils # (Auto) 4.0 1.6-8.6 10 ^3/uL Lymphocytes # (Auto) 2.1 0.4-5.4 10 ^3/uL Monocytes # (Auto) 0.7 0-1.3 10 ^3/uL Eosinophils # (Auto) 0.1 0-0.8 10 ^3/uL Basophils # (Auto) 0.1 0-0.2 10 ^3/uL Nucleated Red Blood Cells 0.0 % Sodium Level 140 136-145 mmol/L Potassium Level 4.3 3.5-5.1 mmol/L Chloride Level 102 98-107 mmol/L Carbon Dioxide Level 29 20-31 mmol/L Anion Gap 9 5-15 Blood Urea Nitrogen 18 9-23 mg/dL Creatinine 1.19 0.700-1.30 mg/dL Glomerular Filtration Rate Calc 62 >90 mL/min BUN/Creatinine Ratio 15.1 10.0-20.0 Serum Glucose 127 H 74-106 mg/dL Calcium Level 10.5 H 8.7-10.4 mg/dL Total Bilirubin 0.3 0.2-1.0 mg/dL Aspartate Amino Transferase (AST) 24 13-40 U/L Alanine Aminotransferase (ALT) 14 7-40 U/L Alkaline Phosphatase 127 H 46-116 U/L Total Protein 7.6 5.7-8.2 g/dL Albumin 4.7 3.2-4.8 g/dL Current Medications Medications (Trade) Dose Ordered Sig/Siva Route Start Time Stop Time Status Last Admin Morphine Sulfate 4 mg ONCE ONCE IV 08/25/24 01:00 08/25/24 01:01 DC 08/25/24 03:50 Ondansetron HCl (Zofran) 4 mg ONCE ONCE IV 08/25/24 01:00 08/25/24 01:01 DC 08/25/24 03:49 Sodium Chloride 1,000 ml @ 1,000 mls/hr Q1H ONCE IV 08/25/24 01:00 08/25/24 01:59 DC 08/25/24 01:00 Time of 1ST Reevaluation: 01:00 Reevaluation 1ST: Unchanged Patient Education/Counseling: Diagnosis, Treatment, Prognosis Family Education/Counseling: No Family Present Additional Information The following tests were ordered, and results were reviewed by me: cbc, cmp, ua, ct ab pel with iv con I reviewed and agreed with the following test results read by other providers:ct ab pel with iv con I discussed treatment and results with medical personnel and: patient Departure 1 Departure Time of Disposition: 05:05 (Patient presented with abdominal pain that was concerning for possible appendicits, gastritis, cholecystitis, colitis, gastroenteritis, sbo, or orther possible surgical emergency. Data: 1. I ordered and reviewed the result of at least 3 labs including a CBC, BMP, and Urinalysis. 2. I independently interpreted the following tests: CT Abdoment and Pelvis is concerning for large amount of stool .Risk:This patient has a high risk of morbidity due to further diagnostic testing or treatment and may suffer from an acute abdominal process disorder. Workup reveals intractable abdominal pain and patient should be admitted for further workup. and possible expert consultation. ) Impression: Primary Impression: Intractable abdominal pain Additional Impression: Constipation Qualified Codes: K59.00 - Constipation, unspecified Disposition: ADMITTED INPATIENT Admit to: Med Surg Condition: Serious Critical Care Note Critical Care Time?: Yes Critical care comment: Intractable abdominal pain Authorized and Performed by: Nicola Junior MD Total critical care time: Approximately 38 minutes Due to a high probability of clinically significant, life threatening deterior ation, the patient required my highest level of preparedness to intervene emergently and I personally spent this critical care time directly and personally managing the patient. This critical care time included obtaining a history; examining the patient; pulse oximetry; ordering and review of studies; arranging urgent treatment with development of a management plan; evaluation of patient's response to treatment; frequent reassessment; and, discussions with other providers. This critical care time was performed to assess and manage the high probability of imminent, life-threatening deterioration that could result in multi-organ failure. It was exclusive of separately billable procedures and treating other patients and teaching time. Please see my other sections and the rest of the note for further information on patient assessment and treatment. Stability Stability form required: No I personally scribed for NICOLA JUNIOR MD ([email or web address]) on 08/25/24 at 01:04. Electronically submitted by Fatmata Leo ([email or web address]). I personally scribed for NICOLA JUNIOR MD ([email or web address]) on 08/25/24 at 01:20. Electronically submitted by Fatmata Leo ([email or web address]). NICOLA JUNIOR MD Aug 25, 2024 01:04
[2024-08-25] MEDS: IOHEXOL 300 MG/ML 100ML BOTTLE IJ ONE (03:11)
[2024-08-25] MEDS: ONDANSETRON HCL 4 MG/2 ML VIAL IV ONE (03:49)
[2024-08-25] MEDS: MORPHINE SULFATE 4 MG/ML SYR/VIAL IV ONE (03:50)
--- NOTE | 2024-08-25 04:23 | DVH ---
Exam: CT CT AB PEL WITH IV CON ONLY History: abdominal pain Comparison Study: CT of the chest abdomen pelvis performed on 06/18/2024. Technique: Multidetector spiral CT of the abdomen was performed from lung bases to pubic symphysis. A xial imaging was performed with intravenous contrast following the uneventful administration of 100 m l Omnipaque 300. Coronal and sagittal multiplanar reformats were obtained from the axial data set by the technologist. Radiation Dose : 1. Abdomen/Pelvis: CTDIvol 7.53 mGy, DLP 375.4 mGy*cm. Findings: Lung Bases: Lung bases are clear. Visualized portions of the heart and pericardium are unremarkable. Liver: The liver is normal in size. No focal lesions. Gallbladder and Biliary Tree: The gallbladder is unremarkable. No intrahepatic or extrahepatic biliar y ductal dilatation. Spleen: Unremarkable Pancreas: The pancreas enhances normally and there are no focal lesions. The main pancreatic duct is not dilated Adrenal Glands: Unremarkable Kidneys: Kidneys enhance symmetrically. No calculi or hydronephrosis. GI tract: Small hiatal hernia. Small bowel loops are normal in caliber. There is fluid distention of the colon at the level of a anastomosis. There is stool throughout the distal colon. The appendix i s not visualized, however no evidence of inflammatory changes in the right lower quadrant. Peritoneum/mesentery/retroperitoneum. No evidence of free intraperitoneal air. No ascites. No evidenc e of suspicious lymphadenopathy. Abdominal Wall: Unremarkable. Vasculature: Abdominal aorta and main branches are unremarkable. Normal vascular enhancement. Urinary Bladder: Grossly unremarkable for degree of distention. Pelvic Organs: Unremarkable Musculoskeletal: No aggressive focal bony lesions, acute fractures or dislocation. S shaped thoracolu mbar scoliosis. IMPRESSION: 1. Fluid distended loops of proximal colon, nonspecific. No bowel obstruction. 2. Small hiatal hernia.
[2024-08-25 07:07] VITALS: PULSE 71; RESP 22; O2SAT 92
[2024-08-25 08:04] VITALS: PULSE 72; RESP 16
[2024-08-25] MEDS: GLYCERIN ADULT RECTAL SUPP PR ONE (09:00)
[2024-08-25] MEDS ORDERED: DOCUSATE SOD 100 MG CAP PO PRN (09:00)
[2024-08-25] MEDS ORDERED: ONDANSETRON HCL 4 MG/2 ML VIAL IV PRN (09:00)
--- NOTE | 2024-08-25 09:19 | DVHHP2 ---
History of Present Illness Reason for Visit: Abdominal pain History of Present Illness Cliff Rich, is an 78-year-old male with past medical history of CVA, SD, hypertension, hyperlipidemia, asthma, and chronic renal insufficiency, who came in with complaints of abdominal pain. Patient states he has been constipated for 4 days. That he was able to have a bowel movement yesterday, but he had to manual disimpact himself. Patient has a history of hemicolectomy a few years ago. CT of abd/pelvis shows fluid distended loops of proximal colon, no bowel obstruction. Patient will be admitted with a GI consult. Patient is a poor historian, can not tell me if or what medications he is taking, states he has had a previous CVA but unsure of when or if he has any residual deficits. Also stats he has had a previous SD, unsure of when or if he had any interventions. Patient states he lives alone, appears unkempt and homeless, will place social service consult. 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 Renal/: Chronic renal insuff Past Surgical History: Hernia Repair, Other (prostate surgery, hemicolectomy) Family History: None Smoke: No ALCOHOL: none Drugs: None Lives: Alone Review of Systems Constitutional: No: Fever, Chills, Sweats, Weakness, Malaise, Other Eyes: No: Pain, Vision change, Conjunctivae inflammation, Eyelid inflammation, Other, Redness ENT: No: Ear pain, Ear discharge, Nose pain, Nose discharge, Nose congestion, Mouth pain, Mouth swelling, Throat pain, Throat swelling, Other Respiratory: No: Cough, Dry, Shortness of breath, SOB with excertion, Wheezing, Hemoptysis, Pleuritic Pain, Sputum, Wheezing, Other Cardiovascular: No: Chest Pain, Palpitations, Orthopnea, Paroxysmal Noc. Dyspnea, Edema, Lt Headedness, Other Gastrointestinal: Nausea, Abdominal Pain, Constipation; No: Vomiting, Diarrhea, Melena, Hematochezia, Other Genitourinary: No Dysuria, No Frequency, No Incontinence, No Hematuria, No Retention, No Other Musculoskeletal: No: other, neck pain, shoulder pain, arm pain, back pain, hand pain, leg pain, foot pain Skin: No: Rash, Lesions, Jaundice, Bruising, Other Neurological: No: Weakness, Numbness, Incoordination, Change in speech, Confusion, Seizures, Other Allergies: Coded Allergies: Chlorpromazine (Verified Allergy, Unknown, 08/02/16) Ciprofloxacin (Verified Allergy, Unknown, 08/07/16) Medications Current Medications Medications Dose Ordered Sig/Siva Route Start Time Stop Time Status Last Admin Dose Admin Sodium Chloride 1,000 ml @ 60 mls/hr [id number] IV 08/25/24 09:00 UNV Acetaminophen/ Hydrocodone Bitart 1 tab Q4HP PRN PO 08/25/24 09:00 UNV Ondansetron HCl 4 mg Q4HP PRN IV 08/25/24 09:00 UNV Docusate Sodium 100 mg BIDPRN PRN PO 08/25/24 09:00 UNV Acetaminophen 650 mg Q6HP PRN PO 08/25/24 09:00 UNV Pantoprazole Sodium 40 mg DAILY IV 08/25/24 10:00 UNV Exam Vital Signs Vital Signs Date Time Temp Pulse Resp B/P (MAP) Pulse Ox O2 Delivery O2 Flow Rate FiO2 08/25/24 08:04 72 16 Room Air* 0 21 08/25/24 07:07 92 08/25/24 07:00 142/85 08/25/24 00:09 97.9 General Appearance: Alert, Oriented X3, Cooperative, moderate distress HEENT: Atraumatic, PERRLA Respiratory: Clear to auscultation, Normal air movement Cardiovascular: Regular rate, Normal S1, Normal S2 Abdominal: Soft, Other (C/O epigastric pain) Extremities: No clubbing, No cyanosis, No edema, Normal pulses, No tenderness/swelling Skin: No rashes, No breakdown, No significant lesion Neuro: Normal gait, Normal speech, Strength at 5/5 X4 ext Psych/Mental Status: Mental status NL, Mood NL Labs/Xrays Labs Test 08/25/24 00:22 Range/Units White Blood Count 7.0 4.4-10.8 10^3/uL Red Blood Count 4.15 L 4.5-5.90 10^6/uL Hemoglobin 13.2 L 13.5-17.5 g/dL Hematocrit 38.7 L 41.0-53.0 % Mean Corpuscular Volume 93.3 80.0-100.0 fL Mean Corpuscular Hemoglobin 31.9 28.0-32.0 pg Mean Corpuscular Hemoglobin Concent 34.2 32.0-36.0 g/dL Red Cell Distribution Width 15.5 H 11.8-14.3 % Platelet Count 268 140-450 10^3/uL Mean Platelet Volume 7.8 6.9-10.8 fL Neutrophils (%) (Auto) 57.0 37.0-80.0 % Lymphocytes (%) (Auto) 30.3 10.0-50.0 % Monocytes (%) (Auto) 10.6 0.0-12.0 % Eosinophils (%) (Auto) 1.3 0.0-7.0 % Basophils (%) (Auto) 0.8 0.0-2.0 % Neutrophils # (Auto) 4.0 1.6-8.6 10 ^3/uL Lymphocytes # (Auto) 2.1 0.4-5.4 10 ^3/uL Monocytes # (Auto) 0.7 0-1.3 10 ^3/uL Eosinophils # (Auto) 0.1 0-0.8 10 ^3/uL Basophils # (Auto) 0.1 0-0.2 10 ^3/uL Nucleated Red Blood Cells 0.0 % Sodium Level 140 136-145 mmol/L Potassium Level 4.3 3.5-5.1 mmol/L Chloride Level 102 98-107 mmol/L Carbon Dioxide Level 29 20-31 mmol/L Anion Gap 9 5-15 Blood Urea Nitrogen 18 9-23 mg/dL Creatinine 1.19 0.700-1.30 mg/dL Glomerular Filtration Rate Calc 62 >90 mL/min BUN/Creatinine Ratio 15.1 10.0-20.0 Serum Glucose 127 H 74-106 mg/dL Calcium Level 10.5 H 8.7-10.4 mg/dL Total Bilirubin 0.3 0.2-1.0 mg/dL Aspartate Amino Transferase (AST) 24 13-40 U/L Alanine Aminotransferase (ALT) 14 7-40 U/L Alkaline Phosphatase 127 H 46-116 U/L Total Protein 7.6 5.7-8.2 g/dL Albumin 4.7 3.2-4.8 g/dL Exam: CT CT AB PEL WITH IV CON ONLY Findings: Lung Bases: Lung bases are clear. Visualized portions of the heart and pericardium are unremarkable. Liver: The liver is normal in size. No focal lesions. Gallbladder and Biliary Tree: The gallbladder is unremarkable. No intrahepatic or extrahepatic biliary ductal dilatation. Spleen: Unremarkable Pancreas: The pancreas enhances normally and there are no focal lesions. The main pancreatic duct is not dilated Adrenal Glands: Unremarkable Kidneys: Kidneys enhance symmetrically. No calculi or hydronephrosis. GI tract: Small hiatal hernia. Small bowel loops are normal in caliber. There is fluid distention of the colon at the level of a anastomosis. There is stool throughout the distal colon. The appendix is not visualized, however no evidence of inflammatory changes in the right lower quadrant. Peritoneum/mesentery/retroperitoneum. No evidence of free intraperitoneal air. No ascites. No evidence of suspicious lymphadenopathy. Abdominal Wall: Unremarkable. Vasculature: Abdominal aorta and main branches are unremarkable. Normal vascular enhancement. Urinary Bladder: Grossly unremarkable for degree of distention. Pelvic Organs: Unremarkable Musculoskeletal: No aggressive focal bony lesions, acute fractures or dislocation. S shaped thoracolumbar scoliosis. IMPRESSION: 1. Fluid distended loops of proximal colon, nonspecific. No bowel obstruction. 2. Small hiatal hernia. Assessment/Plan Assessment/Plan Assessment: Intractable abdominal pain, Constipation, Plan: Admit to Med-Surg, GI consult, Suppository, IV hydration, Pain management, No home medications listed, patient unable to tell me if he is taking any medications, Plan discussed with: Patient My Orders Orders - FLACO GUTIERREZ Procedure Category Date Status Time Glycerin Adult PHA 08/25/24 Logged Suppository (Glycerin 09:00 Drug Screen LAB 08/25/24 Logged 08:58 Admit ADMIT 08/25/24 Transmitted 08:58 Code Status CODE 08/25/24 Transmitted 08:58 Sodium Chloride 0.9% PHA 08/25/24 Logged 09:00 Hydrocodone-Acet PHA 08/25/24 Logged 5/325mg Tab ([place] 09:00 Ondansetron Hcl PHA 08/25/24 Transmitted (Zofran) 09:00 Docusate Sodium PHA 08/25/24 Transmitted Capsule (Colace 09:00 Complete Blood Count LAB 08/26/24 Verified 04:00 Comprehensive LAB 08/26/24 Verified Metabolic Panel 04:00 Condition: Serious JEROD 08/25/24 In Process 08:58 Acetaminophen Tablet PHA 08/25/24 Transmitted (Tylenol Tablet) 09:00 Clear Liq Diet DIET 08/25/24 Transmitted Breakfast Pantoprazole PHA 08/25/24 Transmitted (Protonix) 10:00 Date of Service: Aug 25, 2024 Billing Provider: FLACO GUTIERREZ Common Visit Codes: [id number] INP/OBS CARE (MOD) FLACO GUTIERREZ Aug 25, 2024 09:19
[2024-08-25] MEDS: SODIUM CHLORIDE 0.9% 1,000 ML IV SCH (10:00)
[2024-08-25] MEDS: PANTOPRAZOLE 40 MG/10 ML VIAL INJ IV SCH (10:08)
[2024-08-25 12:40] LABS: Urine Bacteria None Seen /hpf (None Seen)
[2024-08-25 12:59] LABS: Urine Blood Negative /uL (Negative); Urine Clarity Clear (Clear); Urine Color Yellow (Yellow); Urine Mucus FEW (None Seen); Urine Protein, UAD TRACE (Negative); Urine Squamous Epithelial Cell None Seen /hpf (<5); Urine Urobilinogen Normal (Negative); Urine WBC 1 /HPF (0-3)
[2024-08-25 13:08] LABS: Urine Specific Gravity > 1.050 (1.001-1.035)
[2024-08-25 15:03] VITALS: BP 106/69; PULSE 83; RESP 19; TEMP 97.2; O2SAT 98
[2024-08-25 15:06] VITALS: BP 106/69; PULSE 83; RESP 18; TEMP 97.2; O2SAT 98
[2024-08-25] MEDS: HYDROcodone-ACET 5/325MG TAB PO PRN (16:29)
[2024-08-25 17:05] LABS: Cocaine Screen, Urine Neg (NEGATIVE); Opiate Scree,Urine Pos (NEGATIVE)
[2024-08-25 17:49] LABS: Amphetamine Screen, Urine Neg (NEGATIVE); Barbiturate Scree,Urine Neg (NEGATIVE); Benzodiazephine Screen, Urine Neg (NEGATIVE); Cannabinoid Screen, Urine Neg (NEGATIVE); Phencyclidine Screen, Urine Neg (NEGATIVE)
[2024-08-25 20:00] VITALS: PULSE 63; RESP 18; O2SAT 95
--- NOTE | 2024-08-25 20:32 | DVHINCON2 ---
Date of service: Aug 25, 2024 Referring Physician Sonia Harmon Reason for Consultation Constipation in male History of Present Illness Layla, Cliff Wynne, is an 78-year-old male who came in with complaints of abdominal pain. Patient states he has been constipated for 4 days. That he was able to have a bowel movement yesterday, but he had to manual disimpact himself. Patient has a history of hemicolectomy a few years ago. CT of abd/pelvis shows fluid distended loops of proximal colon, no bowel obstruction. Patient is a poor historian, patient states he lives alone, appears unkempt and homeless,social service consult was placed. Last EGD by Dr. Valdovinos in 2019 showing a hiatal hernia and mild gastritis. 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 Renal/: Chronic renal insuff Past Surgical History Past Surgical History: Hernia Repair, Other (prostate surgery, hemicolectomy) Family History: Alcoholism G8 MOTHER, Family history: Cardiovascular disease G8 MOTHER, Family history: Congenital anomaly Family history: Diabetes mellitus G8 MOTHER, grandfather, Family history: Hypertension Seizure disorder (situation) G8 MOTHER, Allergies: Coded Allergies: Chlorpromazine (Verified Allergy, Unknown, 08/02/16) Ciprofloxacin (Verified Allergy, Unknown, 08/07/16) Home Meds Active Scripts Acetaminophen (Tylenol 8 Hour Arthritis) 650 Mg Tab, 650 MG PO TID, #30 TAB Prov:SERGIO VALVERDE 07/02/24 Albuterol Sulfate (VENTOLIN MDI) 90 Mcg Ih, 90 MCG IN TIDPRN PRN for 30 Days, #1 INH 2 Refills Prov:LISSETTE MADDEN MD 06/21/24 Discontinued Scripts Clindamycin Hcl (Clindamycin Hcl) 300 Mg Cap, 1 CAP PO TID, #30 CAP Prov:SERGIO VALVERDE 07/02/24 Prednisone (Prednisone) 20 Mg Tab, 20 MG PO QAM for 5 Days, #10 MG Prov:LISSETTE MADDEN MD 06/21/24 Doxycycline Hyclate (DOXYCYCLINE HYCLATE) 100 Mg Tab, 1 TAB PO BID for 7 Days, #14 TAB Prov:LISSETTE MADDEN MD 06/21/24 Current Medications Current Medications Medications (Trade) Dose Ordered Sig/Siva Route PRN Reason Start Time Stop Time Status Last Admin Sodium Chloride 1,000 ml @ 60 mls/hr [id number] IV 08/25/24 09:00 08/25/24 10:00 Acetaminophen/ Hydrocodone Bitart ([place] 5/325MG Tab) 1 tab Q4HP PRN PO MODERATE PAIN (4-6 PAIN SCALE) 08/25/24 09:00 08/25/24 16:29 Ondansetron HCl (Zofran) 4 mg Q4HP PRN IV NAUSEA / VOMITING 08/25/24 09:00 Docusate Sodium (Colace Capsule) 100 mg BIDPRN PRN PO FOR CONSTIPATION 08/25/24 09:00 Acetaminophen (Tylenol Tablet) 650 mg Q6HP PRN PO PAIN SCALE 1-3 OR TEMP>100.4 08/25/24 09:00 Pantoprazole Sodium (Protonix) 40 mg DAILY IV 08/25/24 10:00 08/25/24 10:08 Review of Systems Operative Report DATE OF OPERATION: 09/29/19 PROCEDURE: Upper Endoscopy. PREOPERATIVE INDICATION: The patient is a 73 -year-old male undergoing endoscopy for melena POSTOPERATIVE DIAGNOSES: 1. Duodenitis in the bulb 2. Hiatal hernia 40-44 cm 3. Grade B esophagitis PROCEDURE PERFORMED BY: Wesley Valdovinos Vital Signs Vital Signs Date Time Temp Pulse Resp B/P (MAP) Pulse Ox O2 Delivery O2 Flow Rate FiO2 08/25/24 15:06 97.2 83 18 106/69 (81) 98 97.2 08/25/24 08:04 Room Air* 0 21 Physical Exam Hemodynamically stable General Appearance: Alert, Oriented X3, Cooperative, no distress HEENT: Atraumatic, PERRLA Respiratory: Clear to auscultation, Normal air movement Cardiovascular: Regular rate, Normal S1, Normal S2 Abdominal: Soft, mild abd tenderness Extremities: No clubbing, No cyanosis, No edema, Normal pulses, No tenderness/swelling Skin: No rashes, No breakdown, No significant lesion Neuro: Normal gait, Normal speech, Strength at 5/5 X4 ext Psych/Mental Status: Mental status NL, Mood NL Labs/Diagnostic Data Labs Test 08/25/24 08:58 08/25/24 00:08/25/24 00:14 Range/Units Urine Opiates Screen Pos NEGATIVE Urine Fentanyl Screen Neg NEGATIVE Urine Barbiturates Screen Neg NEGATIVE Urine Phencyclidine Screen Neg NEGATIVE Urine Amphetamines Screen Neg NEGATIVE Urine Benzodiazepines Screen Neg NEGATIVE Urine Cocaine Screen Neg NEGATIVE Urine Cannabinoids Screen Neg NEGATIVE White Blood Count 7.0 4.4-10.8 10^3/uL Red Blood Count 4.15 L 4.5-5.90 10^6/uL Hemoglobin 13.2 L 13.5-17.5 g/dL Hematocrit 38.7 L 41.0-53.0 % Mean Corpuscular Volume 93.3 80.0-100.0 fL Mean Corpuscular Hemoglobin 31.9 28.0-32.0 pg Mean Corpuscular Hemoglobin Concent 34.2 32.0-36.0 g/dL Red Cell Distribution Width 15.5 H 11.8-14.3 % Platelet Count 268 140-450 10^3/uL Mean Platelet Volume 7.8 6.9-10.8 fL Neutrophils (%) (Auto) 57.0 37.0-80.0 % Lymphocytes (%) (Auto) 30.3 10.0-50.0 % Monocytes (%) (Auto) 10.6 0.0-12.0 % Eosinophils (%) (Auto) 1.3 0.0-7.0 % Basophils (%) (Auto) 0.8 0.0-2.0 % Neutrophils # (Auto) 4.0 1.6-8.6 10 ^3/uL Lymphocytes # (Auto) 2.1 0.4-5.4 10 ^3/uL Monocytes # (Auto) 0.7 0-1.3 10 ^3/uL Eosinophils # (Auto) 0.1 0-0.8 10 ^3/uL Basophils # (Auto) 0.1 0-0.2 10 ^3/uL Nucleated Red Blood Cells 0.0 % Sodium Level 140 136-145 mmol/L Potassium Level 4.3 3.5-5.1 mmol/L Chloride Level 102 98-107 mmol/L Carbon Dioxide Level 29 20-31 mmol/L Anion Gap 9 5-15 Blood Urea Nitrogen 18 9-23 mg/dL Creatinine 1.19 0.700-1.30 mg/dL Glomerular Filtration Rate Calc 62 >90 mL/min BUN/Creatinine Ratio 15.1 10.0-20.0 Serum Glucose 127 H 74-106 mg/dL Calcium Level 10.5 H 8.7-10.4 mg/dL Total Bilirubin 0.3 0.2-1.0 mg/dL Aspartate Amino Transferase (AST) 24 13-40 U/L Alanine Aminotransferase (ALT) 14 7-40 U/L Alkaline Phosphatase 127 H 46-116 U/L Total Protein 7.6 5.7-8.2 g/dL Albumin 4.7 3.2-4.8 g/dL Urine Color Yellow Yellow Urine Clarity Clear Clear Urine pH 7.0 5.0-9.0 Urine Specific [place] > 1.050 H 1.001-1.035 Urine Protein Trace H Negative Urine Ketones Negative Negative Urine Blood Negative Negative /uL Urine Nitrite Negative Negative Urine Bilirubin Negative Negative Urine Urobilinogen Normal Negative mg/dL Urine Leukocyte Esterase Negative Negative /uL Urine RBC 2 0 - 3 /hpf Urine Microscopic WBC 1 0-3 /HPF Urine Squamous Epithelial Cells None seen <5 /hpf Urine Bacteria None seen None Seen /hpf Urine Mucus Few None Seen Urine Glucose Normal Normal mg/dL CT SCAN ABD PELVIS IMPRESSION: 1. Fluid distended loops of proximal colon, nonspecific. No bowel obstruction. 2. Small hiatal hernia. Problems(with codes): (1) Constipation (2) CVA (cerebral vascular accident) (3) Abdominal pain (4) Ileus Plan/Recommendation Plan Check TSH Start stool softeners IV fluid hydration MiraLax 17 g p.o. daily If there was no response patient may need GoLYTELY Discuss elective colonoscopy with the patient Plan discussed with: Other PANFILO ABDULLAHI MD Aug 25, 2024 20:32
[2024-08-25 21:00] VITALS: BP_SYST 125; BP_SYST 99; BP_DIAS 60; BP_DIAS 65; PULSE 63; PULSE 91; RESP 18; RESP 19; TEMP 97.8; TEMP 97.9; O2SAT 93; O2SAT 95
[2024-08-25] MEDS: DOCUSATE SOD 100 MG CAP PO SCH (23:22)
[2024-08-26] VITALS (7 sets, daily range): BP systolic 99–127; BP diastolic 57–84; PULSE 63–89; RESP 18; TEMP 97.6–98.1; O2SAT 94–100
[2024-08-26 06:42] LABS: Basophils # (auto) 0 10 ^3/uL (0-0.2); Basophils % (auto) 0.9 % (0.0-2.0); Eosinophils # (auto) 0.1 10 ^3/uL (0-0.8); Eosinophils % (auto) 2.8 % (0.0-7.0); Hematocrit 35.3 % (41.0-53.0); Hemoglobin 11.7 g/dL (13.5-17.5); Lymphocytes # (auto) 1.6 10 ^3/uL (0.4-5.4); Lymphocytes % (auto) 31.1 % (10.0-50.0); Mean Corpuscular Hemoglobin 31.5 pg (28.0-32.0); Mean Corpuscular Hgb Conc. 33.3 g/dL (32.0-36.0); Mean Corpuscular Volume 94.8 fL (80.0-100.0); Monocytes # (auto) 0.5 10 ^3/uL (0-1.3); Monocytes % (auto) 9.2 % (0.0-12.0); Neutrophils # (auto) 2.9 10 ^3/uL (1.6-8.6); Nucleated Red Blood Cells % 0.1 %; Platelet Count (auto) 206 10^3/uL (140-450); Red Blood Cells 3.72 10^6/uL (4.5-5.90); Red Cell Distribution Width 15.5 % (11.8-14.3); White Blood Cell 5.2 10^3/uL (4.4-10.8)
[2024-08-26 07:02] LABS: Albumin 3.6 g/dL (3.2-4.8); Alkaline Phosphatase 81 U/L (46-116); Anion Gap 7 (5-15); Aspartate Aminotransferase 17 U/L (13-40); BUN/Creatinine Ratio 9.8 (10.0-20.0); Calcium 8.9 mg/dL (8.7-10.4); Carbon Dioxide 26 mmol/L (20-31); Glucose 93 mg/dL (74-106); Potassium 4.4 mmol/L (3.5-5.1); Sodium 140 mmol/L (136-145); Total Protein 5.8 g/dL (5.7-8.2)
[2024-08-26 07:03] LABS: Alanine Aminotransferase < 9 U/L (7-40); Bilirubin, Total 0.6 mg/dL (0.2-1.0); Blood Urea Nitrogen 9 mg/dL (9-23); Chloride 107 mmol/L (98-107)
[2024-08-26] MEDS: ACETAMINOPHEN 325 MG TAB PO PRN (10:44)
[2024-08-26] MEDS: POLYETHYLENE GLYCOL 17 GM PWDR PO SCH (10:44)
--- NOTE | 2024-08-26 13:03 | DVHPN2 ---
Reviewed: Care Plan, H&P, Labs, Medications, Previous Orders, Radiology Changes from previous H/P or p: No Changes Eyes: No Pain, No Vision change, No Conjunctivae inflammation, No Eyelid inflammation, No Other, No Redness ENT: No Ear pain, No Ear discharge, No Nose pain, No Nose discharge, No Nose congestion, No Mouth pain, No Mouth swelling, No Throat pain, No Throat swelling, No Other Cardiovascular: No Chest Pain, No Palpitations, No Orthopnea, No Paroxysmal Noc. Dyspnea, No Edema, No Lt Headedness, No Other Respiratory: No Cough, No Dry, No Shortness of breath, No SOB with excertion, No Wheezing, No Hemoptysis, No Pleuritic Pain, No Sputum, No Other Gastrointestinal: Nausea; No Vomiting; Abdominal Pain; No Diarrhea; C onstipation; No Melena, No Hematochezia, No Other Genitourinary: No Dysuria, No Frequency, No Incontinence, No Hematuria, No Retention, No Other Musculoskeletal: No other, No neck pain, No shoulder pain, No arm pain, No back pain, No hand pain, No leg pain, No foot pain Skin: No Rash, No Lesions, No Jaundice, No Bruising, No Other Objective Vitals Vital Signs Date Time Temp Pulse Resp B/P (MAP) Pulse Ox O2 Delivery O2 Flow Rate FiO2 08/26/24 09:00 97.8 69 18 103/57 (72) 96 97.8 08/25/24 20:00 Nasal Cannula* 2 28 Intake/Output Intake and Output 08/26/24 07:00 Intake Total 1135 ml Balance 1135 ml Intake Oral 895 ml IV Total 240 ml # Voids 3 Medications Current Medications Medications Dose Ordered Sig/Siva Route Start Time Stop Time Status Last Admin Dose Admin Sodium Chloride 1,000 ml @ 60 mls/hr [id number] IV 08/25/24 09:00 08/26/24 04:35 60 MLS/HR Acetaminophen/ Hydrocodone Bitart 1 tab Q4HP PRN PO 08/25/24 09:00 08/25/24 16:29 1 TAB Ondansetron HCl 4 mg Q4HP PRN IV 08/25/24 09:00 Acetaminophen 650 mg Q6HP PRN PO 08/25/24 09:00 08/26/24 10:44 650 MG Pantoprazole Sodium 40 mg DAILY IV 08/25/24 10:00 08/26/24 10:44 40 MG Docusate Sodium 100 mg BID PO 08/25/24 22:00 08/26/24 10:43 100 MG Polyethylene Glycol 17 gm DAILY PO 08/26/24 10:00 08/26/24 10:44 17 GM Laboratory Results Laboratory Tests 08/26/24 06:17 Chemistry Test 08/26/24 06:17 Albumin 3.6 g/dL (3.2-4.8) Calcium Level 8.9 mg/dL (8.7-10.4) Total Protein 5.8 g/dL (5.7-8.2) LFT Test 08/26/24 06:17 Alanine Aminotransferase (ALT) < 9 U/L (7-40) Alkaline Phosphatase 81 U/L (46-116) Aspartate Amino Transferase (AST) 17 U/L (13-40) Total Bilirubin 0.6 mg/dL (0.2-1.0) HgA1c, TSH Test 08/26/24 06:17 Thyroid Stimulating Hormone (TSH) 1.21 uIU/mL (0.55-4.78) Urinalysis Test 08/25/24 00:14 Urine Color Yellow (Yellow) Urine Clarity Clear (Clear) Urine pH 7.0 (5.0-9.0) Urine Specific [place] > 1.050 (1.001-1.035) Urine Protein Trace (Negative) H Urine Ketones Negative (Negative) Urine Blood Negative /uL (Negative) Urine Nitrite Negative (Negative) Urine Bilirubin Negative (Negative) Urine Urobilinogen Normal mg/dL (Negative) Urine Leukocyte Esterase Negative /uL (Negative) Urine RBC 2 /hpf (0 - 3) Urine Microscopic WBC 1 /HPF (0-3) Urine Squamous Epithelial Cells None seen /hpf (<5) Urine Bacteria None seen /hpf (None Seen) Urine Mucus Few (None Seen) Urine Glucose Normal mg/dL (Normal) Labs and/or images reviewed: Labs reviewed by me, Image(s) reviewed by me Assessment/Plan Assessment/Plan Chronic constipation: MiraLax, GI consult by Dr. Mei Jovel appreciated CT abdomen pelvis shows no bowel obstruction Hypertension [place] Hypercholesterolemia History of asthma History of CVA History of prostate surgery History of hemicolectomy Chronic kidney disease Severe malnutrition Possible homelessness Time Spent 65 minutes Patient is full code Advanced care planning time 20 minutes Plan discussed with: Patient Date of Service: Aug 26, 2024 Billing Provider: SEVERO RUBY MD Common Visit Codes: [id number] CARE 30-74 MIN SEVERO RUBY MD Aug 26, 2024 13:03
--- NOTE | 2024-08-26 13:31 | DVHPN2 ---
Subjective Patient admits to epigastric pain, which is improving at this time. No nausea or vomiting Patient had a large bowel movement today. No melena or red blood in stool Patient admits to history of constipation. Had abdominal surgery many years ago, possible diagnosis of SPO SP colonoscopy three years ago per patient unsure about results Reviewed: Care Plan, H&P, Labs, Medications, Previous Orders, Radiology Changes from previous H/P or p: No Changes Eyes: No Pain, No Vision change, No Conjunctivae inflammation, No Eyelid inflammation, No Other, No Redness ENT: No Ear pain, No Ear discharge, No Nose pain, No Nose discharge, No Nose congestion, No Mouth pain, No Mouth swelling, No Throat pain, No Throat swelling, No Other Cardiovascular: No Chest Pain, No Palpitations, No Orthopnea, No Paroxysmal Noc. Dyspnea, No Edema, No Lt Headedness, No Other Respiratory: No Cough, No Dry, No Shortness of breath, No SOB with excertion, No Wheezing, No Hemoptysis, No Pleuritic Pain, No Sputum, No Other Gastrointestinal: Nausea; No Vomiting; Abdominal Pain; No Diarrhea; C onstipation; No Melena, No Hematochezia, No Other Genitourinary: No Dysuria, No Frequency, No Incontinence, No Hematuria, No Retention, No Other Musculoskeletal: No other, No neck pain, No shoulder pain, No arm pain, No back pain, No hand pain, No leg pain, No foot pain Skin: No Rash, No Lesions, No Jaundice, No Bruising, No Other Objective Vitals Vital Signs Date Time Temp Pulse Resp B/P (MAP) Pulse Ox O2 Delivery O2 Flow Rate FiO2 08/26/24 09:00 97.8 69 18 103/57 (72) 96 97.8 08/25/24 20:00 Nasal Cannula* 2 28 Intake/Output Intake and Output 08/26/24 07:00 Intake Total 1135 ml Balance 1135 ml Intake Oral 895 ml IV Total 240 ml # Voids 3 General Appearance: Alert, Oriented X3, Cooperative, No acute distress, mild distress, moderate distress, severe distress, Other Lungs: Clear to auscultation, Normal air movement, Other Cardiovascular: Regular rate, Normal S1, Normal S2, No murmurs, Gallops, Rubs, Other Abdomen: Normal bowel sounds, Soft, No tenderness, No hepatospenomegaly, No masses, Other Medications Current Medications Medications Dose Ordered Sig/Siva Route Start Time Stop Time Status Last Admin Dose Admin Sodium Chloride 1,000 ml @ 60 mls/hr [id number] IV 08/25/24 09:00 08/26/24 04:35 60 MLS/HR Acetaminophen/ Hydrocodone Bitart 1 tab Q4HP PRN PO 08/25/24 09:00 08/25/24 16:29 1 TAB Ondansetron HCl 4 mg Q4HP PRN IV 08/25/24 09:00 Acetaminophen 650 mg Q6HP PRN PO 08/25/24 09:00 08/26/24 10:44 650 MG Pantoprazole Sodium 40 mg DAILY IV 08/25/24 10:00 08/26/24 10:44 40 MG Docusate Sodium 100 mg BID PO 08/25/24 22:00 08/26/24 10:43 100 MG Polyethylene Glycol 17 gm DAILY PO 08/26/24 10:00 08/26/24 10:44 17 GM Laboratory Results Laboratory Tests 08/26/24 06:17 Chemistry Test 08/26/24 06:17 Albumin 3.6 g/dL (3.2-4.8) Calcium Level 8.9 mg/dL (8.7-10.4) Total Protein 5.8 g/dL (5.7-8.2) LFT Test 08/26/24 06:17 Alanine Aminotransferase (ALT) < 9 U/L (7-40) Alkaline Phosphatase 81 U/L (46-116) Aspartate Amino Transferase (AST) 17 U/L (13-40) Total Bilirubin 0.6 mg/dL (0.2-1.0) HgA1c, TSH Test 08/26/24 06:17 Thyroid Stimulating Hormone (TSH) 1.21 uIU/mL (0.55-4.78) Urinalysis Test 08/25/24 00:14 Urine Color Yellow (Yellow) Urine Clarity Clear (Clear) Urine pH 7.0 (5.0-9.0) Urine Specific [place] > 1.050 (1.001-1.035) Urine Protein Trace (Negative) H Urine Ketones Negative (Negative) Urine Blood Negative /uL (Negative) Urine Nitrite Negative (Negative) Urine Bilirubin Negative (Negative) Urine Urobilinogen Normal mg/dL (Negative) Urine Leukocyte Esterase Negative /uL (Negative) Urine RBC 2 /hpf (0 - 3) Urine Microscopic WBC 1 /HPF (0-3) Urine Squamous Epithelial Cells None seen /hpf (<5) Urine Bacteria None seen /hpf (None Seen) Urine Mucus Few (None Seen) Urine Glucose Normal mg/dL (Normal) Labs and/or images reviewed: Labs reviewed by me, Image(s) reviewed by me Assessment/Plan Assessment/Plan Constipation Abdominal pain improving History CVA Plan: Discussed with Dr. Jovel Advance to soft diet Possible plan for outpatient elective colonoscopy, discussed with patient Plan discussed with patient and RN Plan discussed with: Patient, Other (RN) My Orders Orders - CATY RUBY Procedure Category Date Status Time Mechanical Soft Diet DIET 08/26/24 Transmitted Lunch Date of Service: Aug 26, 2024 Billing Provider: CATY RUBY Common Visit Codes: [id number] INP/OBS CARE(MOD) CATY RUBY Aug 26, 2024 13:31
[2024-08-27 04:45] VITALS: BP 128/86; PULSE 56; RESP 18; TEMP 97.8; O2SAT 94
[2024-08-27 08:00] VITALS: PULSE 81; RESP 18; O2SAT 92
[2024-08-27 09:00] VITALS: BP 148/84; PULSE 69; RESP 20; TEMP 97.4; O2SAT 92
[2024-08-27] MEDS ORDERED: DOCU-265 PO (12:37)
[2024-08-27 13:00] VITALS: BP 132/66; PULSE 60; RESP 20; TEMP 97.8; O2SAT 96
[2024-08-27 13:53] VITALS: BP 148/84; PULSE 70; RESP 18; TEMP 97.4; O2SAT 94
== END 2024-08-27 14:20 | disposition home or self-care (01) | DRG 391 ==
LOC: ER 00:09 → OVERFLOW 08:58 → EAST 14:29
PROVIDERS: ADMIT Hospitalist; ATTEND Hospitalist
DX: K59.00 Constipation, unspecified (principal); E43 Unspecified severe protein-calorie malnutrition; K56.7 Ileus, unspecified; Z59.00 Homelessness unspecified; Z68.1 Body mass index [BMI] 19.9 or less, adult; K44.9 Diaphragmatic hernia without obstruction or gangrene; F17.210 Nicotine dependence, cigarettes, uncomplicated; I12.9 Hypertensive chronic kidney disease with stage 1 through stage 4 chronic kidney disease, or unspecified chronic kidney disease; J44.9 Chronic obstructive pulmonary disease, unspecified; E78.00 Pure hypercholesterolemia, unspecified; N18.9 Chronic kidney disease, unspecified; Z88.1 Allergy status to other antibiotic agents; Z88.8 Allergy status to other drugs, medicaments and biological substances; Z79.899 Other long term (current) drug therapy; Z79.1 Long term (current) use of non-steroidal anti-inflammatories (NSAID); Z86.73 Personal history of transient ischemic attack (TIA), and cerebral infarction without residual deficits; Z90.49 Acquired absence of other specified parts of digestive tract; I25.2 Old myocardial infarction; Z82.49 Family history of ischemic heart disease and other diseases of the circulatory system; Z83.3 Family history of diabetes mellitus; Z82.0 Family history of epilepsy and other diseases of the nervous system; Z79.891 Long term (current) use of opiate analgesic
CPT/HCPCS: 36415; 74177; 80053; 80307; 81001; 84443; 85025; 96361; 96374; 96375; 99291; G0378; J2405; J2470

== ENCOUNTER 2024-11-03 03:51 | Inpatient (IN) | payer MEDICARE, MEDICAID ==
[~2024-11-03] VITALS: Ht 180.3 cm; Wt 59.5 kg
[~2024-11-03 03:51] MED LIST changes: -CLIN1CAP70 PO; +DOCU-265 PO; -DOXY-286 PO; -PRED20TA2 PO
--- NOTE | 2024-11-03 04:20 | ED.PDOC ---
History of Present Illness HPI Comments 79 y/o M presents with 4 day history of nonradiating, diffused abdominal pain, with associated nausea and vomiting. Patient is a poor historian. Denies any bloody or bilious vomitus, diarrhea, urinary symptoms, fever, chills, or further associated symptoms. Chief Complaint: Abdominal Pain Time Seen by MD: 04:00 Primary Care Provider: NONE Reviewed Notes: Nurses Notes, Medications, Allergies Allergies: Coded Allergies: Chlorpromazine (Verified Allergy, Unknown, 08/02/16) Ciprofloxacin (Verified Allergy, Unknown, 08/07/16) Home Meds Active Scripts Docusate Sodium (Docusate Sodium) 100 Mg Cap, 100 MG PO BID for 7 Days, #14 CAP Prov:KAYLIN BIANCHI MD 08/27/24 Acetaminophen (Tylenol 8 Hour Arthritis) 650 Mg Tab, 650 MG PO TID, #30 TAB Prov:SERGIO VALVERDE 07/02/24 Albuterol Sulfate (VENTOLIN MDI) 90 Mcg Ih, 90 MCG IN TIDPRN PRN for 30 Days, #1 INH 2 Refills Prov:LISSETTE MADDEN MD 06/21/24 Information Source: Patient Mode of Arrival: Ambulatory Severity: Moderate Timing: Days Duration: Since onset Prehospital treatment: None Past Medical History PAST MEDICAL HISTORY: Arthritis, Asthma, CKF, COPD, CVA, High Lipids, HTN, [place] Surgical History: Hernia Repair Family History Family History: No family hx of Cancer, No family hx of DM, No family hx of HTN, No family hx ofKidney joe, No family hx of Liver joe, No family hx of Lung joe, No family hx of Stroke, Family hx of heart joe Social History Smoker: Cigarettes Alcohol: Sober Drugs: Denies Drug Use Lives In: Homeless All Other Systems: Reviewed and Negative (Comprehensive systems review obtained and negative except for what is stated in the HPI.) Physical Exam General Appearance: Moderate Distress, Normal HEENT: Normal ENT Inspection, Pharynx Normal, TMs Normal Neck: Full Range of Motion, Non-Tender, Normal, Normal Inspection Respiratory: Chest Non-Tender, Lungs Clear, No Accessory Muscle Use, No Respiratory Distress, Normal Breath Sounds Cardiovascular: No Edema, No JVD, No Murmur, No Gallop, Normal Peripheral Pulses, Regular Rate/Rhythm Breast Exam: Deferred Gastrointestinal: Diffuse (tenderness ), No Organomegaly, No Pulsatile Mass, Normal Bowel Sounds, Soft, Tenderness (diffused ), Other (no peritoneal signs ) Genitalia: Deferred Pelvic: Deferred Rectal: Deferred Extremities: No calf tenderness, Normal capillary refill, Normal inspection, Normal range of motion, Non-tender, No pedal edema Musculoskeletal : Apperance: Normal Neurologic: Alert, tube and manifold builder II-XII nml as Tested, No Motor Deficits, Normal Affect, Normal Mood, No Sensory Deficits Cerebellar Function: Normal Reflexes: Normal Skin: Dry, Normal Color, Warm Lymphatic: No Adenopathy Was a procedure done? Was a procedure done?: No Differential Dx Considerations may include: gastritis, gastroenteritis, GERD, diverticulitis, appendicitis, cholelithiasis, cholecystitis, UTI, among others X-Ray, Labs, Meds, VS Vital Signs Date Time Temp Pulse Resp B/P (MAP) Pulse Ox O2 Delivery O2 Flow Rate FiO2 11/03/24 08:04 73 18 105/76 11/03/24 07:30 73 18 96 Room Air* 0 21 11/03/24 06:14 98.1 73 14 126/91 (103) 97 98.1 11/03/24 04:00 97.5 90 14 120/67 (84) 98 97.5 Lab Test 11/03/24 04:42 Range/Units White Blood Count 9.5 4.4-10.8 10^3/uL Red Blood Count 4.43 L 4.5-5.90 10^6/uL Hemoglobin 14.1 13.5-17.5 g/dL Hematocrit 42.1 41.0-53.0 % Mean Corpuscular Volume 95.0 80.0-100.0 fL Mean Corpuscular Hemoglobin 31.7 28.0-32.0 pg Mean Corpuscular Hemoglobin Concent 33.4 32.0-36.0 g/dL Red Cell Distribution Width 13.8 11.8-14.3 % Platelet Count 252 140-450 10^3/uL Mean Platelet Volume 8.5 6.9-10.8 fL Neutrophils (%) (Auto) 84.8 H 37.0-80.0 % Lymphocytes (%) (Auto) 9.0 L 10.0-50.0 % Monocytes (%) (Auto) 5.0 0.0-12.0 % Eosinophils (%) (Auto) 0.5 0.0-7.0 % Basophils (%) (Auto) 0.7 0.0-2.0 % Neutrophils # (Auto) 8.0 1.6-8.6 10 ^3/uL Lymphocytes # (Auto) 0.9 0.4-5.4 10 ^3/uL Monocytes # (Auto) 0.5 0-1.3 10 ^3/uL Eosinophils # (Auto) 0 0-0.8 10 ^3/uL Basophils # (Auto) 0.1 0-0.2 10 ^3/uL Nucleated Red Blood Cells 0.0 % Prothrombin Time 10.3 9.3-11.8 sec Prothrombin Time INR 0.97 0.9-1.15 Activated Partial Thromboplast Time 27.1 24.5-34.5 SEC Sodium Level 141 136-145 mmol/L Potassium Level 4.0 3.5-5.1 mmol/L Chloride Level 103 98-107 mmol/L Carbon Dioxide Level 27 20-31 mmol/L Anion Gap 11 5-15 Blood Urea Nitrogen 13 9-23 mg/dL Creatinine 1.24 0.700-1.30 mg/dL Glomerular Filtration Rate Calc 58 >90 mL/min BUN/Creatinine Ratio 10.5 10.0-20.0 Serum Glucose 126 H 74-106 mg/dL Calcium Level 9.7 8.7-10.4 mg/dL Total Bilirubin 0.4 0.2-1.0 mg/dL Aspartate Amino Transferase (AST) 23 13-40 U/L Alanine Aminotransferase (ALT) 12 7-40 U/L Alkaline Phosphatase 117 H 46-116 U/L Total Protein 7.6 5.7-8.2 g/dL Albumin 4.9 H 3.2-4.8 g/dL Lipase 38 12-53 U/L Current Medications Medications (Trade) Dose Ordered Sig/Siva Route Start Time Stop Time Status Last Admin Ondansetron HCl (Zofran) 4 mg ONCE ONCE IV 11/03/24 04:15 11/03/24 04:16 DC 11/03/24 08:01 Sodium Chloride 1,000 ml @ 1,000 mls/hr Q1H ONCE IVB 11/03/24 04:15 11/03/24 05:14 DC 11/03/24 07:30 Morphine Sulfate 4 mg ONCE ONCE IV 11/03/24 04:15 11/03/24 04:16 DC 11/03/24 08:04 Patient alert. Complaining of abdominal pain. Blood sugar slightly elevated. Vitals stable. WBC within normal limits. Hemoglobin within normal limits. Continues to have abdominal pain. Establish intravenous access. Was given fluids. Was given Zofran. CT scan of the abdomen. Continue monitoring. Time of 1ST Reevaluation: 04:30 Reevaluation 1ST: Unchanged Patient Education/Counseling: Diagnosis, Treatment, Need For Follow Up Family Education/Counseling: No Family Present Departure 1 Departure Time of Disposition: 09:04 Impression: Primary Impression: Acute abdominal pain Disposition: ADMITTED INPATIENT Admit to: Med Surg Condition: Guarded Critical Care Note Critical Care Time?: No Stability Stability form required: No Heart Score Heart Score: Heart Score Response (Comments) Value History N/A 0 EKG N/A 0 Age N/A 0 Risk Factors N/A 0 Troponin N/A 0 Total 0 I personally scribed for KYRIE EDWARDS MD ([email or web address]) on 11/03/24 at 04:20. Electronically submitted by René Montoya ([email or web address]). KYRIE EDWARDS MD November 03, 2024 04:20 LUIS ALLEN MD November 03, 2024 09:06
[2024-11-03 05:04] LABS: Basophils # (auto) 0.1 10 ^3/uL (0-0.2); Basophils % (auto) 0.7 % (0.0-2.0); Eosinophils # (auto) 0 10 ^3/uL (0-0.8); Eosinophils % (auto) 0.5 % (0.0-7.0); Hematocrit 42.1 % (41.0-53.0); Hemoglobin 14.1 g/dL (13.5-17.5); Lymphocytes # (auto) 0.9 10 ^3/uL (0.4-5.4); Mean Corpuscular Hemoglobin 31.7 pg (28.0-32.0); Mean Corpuscular Hgb Conc. 33.4 g/dL (32.0-36.0); Monocytes # (auto) 0.5 10 ^3/uL (0-1.3); Neutrophils % (auto) 84.8 % (37.0-80.0); Platelet Count (auto) 252 10^3/uL (140-450); Red Blood Cells 4.43 10^6/uL (4.5-5.90); Red Cell Distribution Width 13.8 % (11.8-14.3); White Blood Cell 9.5 10^3/uL (4.4-10.8)
[2024-11-03 05:23] LABS: Alanine Aminotransferase 12 U/L (7-40); Albumin 4.9 g/dL (3.2-4.8); Alkaline Phosphatase 117 U/L (46-116); Anion Gap 11 (5-15); Aspartate Aminotransferase 23 U/L (13-40); BUN/Creatinine Ratio 10.5 (10.0-20.0); Blood Urea Nitrogen 13 mg/dL (9-23); Calcium 9.7 mg/dL (8.7-10.4); Carbon Dioxide 27 mmol/L (20-31); Chloride 103 mmol/L (98-107); Glucose 126 mg/dL (74-106); Lipase 38 U/L (12-53); Sodium 141 mmol/L (136-145); Total Protein 7.6 g/dL (5.7-8.2)
[2024-11-03 05:24] LABS: Bilirubin, Total 0.4 mg/dL (0.2-1.0)
[2024-11-03] MEDS: IOHEXOL 300 MG/ML 100ML BOTTLE IJ ONE (05:40)
[2024-11-03 06:13] LABS: INR 0.97 (0.9-1.15); Partial Thromboplastin Time 27.1 SEC (24.5-34.5); Prothrombin Time 10.3 sec (9.3-11.8)
[2024-11-03 07:30] VITALS: PULSE 73; RESP 18; O2SAT 96
[2024-11-03] MEDS: SODIUM CHLORIDE 0.9% 1,000 ML IVB ONE (07:30)
[2024-11-03] MEDS: ONDANSETRON HCL 4 MG/2 ML VIAL IV ONE (08:01)
[2024-11-03] MEDS: MORPHINE SULFATE 4 MG/ML SYR/VIAL IV ONE (08:04)
--- NOTE | 2024-11-03 10:24 | DVH ---
Exam: CT CT AB PEL WITH IV CON ONLY History: abd pain Comparison Study: CT CT AB PEL WITH IV CON ONLY on DOS: 08/25/24 Contrast: Type of contrast: Contrast injected: Contrast wasted: 0 TECHNIQUE: CT of the abdomen pelvis performed with intravenous contrast. Coronal sagittal reformatte d images are provided. Radiation Dose Information: CT Dose: CTDI volume is 5.35 mGy. Dose-length product is 311.0 mGy*cm FINDINGS: Lung Bases: Emphysema at the lung bases. Right basilar and left upper lobe atelectasis. Normal heart size. Coronary artery calcifications. No pleural or pericardial effusion. Liver: The liver is normal in size. No focal lesions. Normal hepatic vascular enhancement. Gallbladder and Biliary Tree: Unremarkable. No intrahepatic and extrahepatic biliary ductal dilatati on. Spleen: Unremarkable Pancreas: The pancreas is normal in appearance without focal lesions or abnormal enhancement. Adrenal Glands: Unremarkable Kidneys: Kidneys demonstrate normal symmetric enhancement without focal lesions, calculi or hydroneph rosis. Bladder: Unremarkable Bowel: Hiatal hernia. Fluid throughout the small bowel without abnormal dilatation. No small bowel wa ll thickening. Scattered stool throughout the colon. Colonic diverticulosis without acute diverticul itis. Surgical anastomosis in the transverse colon and possible partial right colonic resection. The appendix is not visualized; however, no secondary findings of acute appendicitis identified. Intraperitoneal cavity: No pneumoperitoneum. No ascites. Lymphadenopathy: No mesenteric, retroperitoneal or periportal lymphadenopathy. Abdominal Wall and Mesentery: Unremarkable. Vasculature: The visualized abdominal aorta is normal in size and caliber. Abdominal and pelvic vess els demonstrate normal enhancement. Pelvic Organs: Unremarkable Musculoskeletal: No aggressive focal bony lesions, acute fractures or dislocation. S shaped scoliosi s. Soft tissues: Unremarkable. IMPRESSION: 1. Fluid-filled small bowel loops, nonspecific but may reflect mild enteritis. No bowel obstruction. 2. Colonic diverticulosis without acute diverticulitis. 3. Hiatal hernia. All CT scans at this medical facility are performed using dose modulation techniques as appropriate t o a performed exam including the following: Automated exposure control was utilized; adjustment of th e MA and/or KV according to patient size; and use of iterative reconstruction technique.
[2024-11-03] MEDS ORDERED: ACETAMINOPHEN 325 MG TAB PO PRN (11:30)
[2024-11-03] MEDS ORDERED: POLYETHYLENE GLYCOL 17 GM PWDR PO ONE (11:30)
[2024-11-03] MEDS ORDERED: ONDANSETRON HCL 4 MG/2 ML VIAL IV PRN (11:30)
[2024-11-03] MEDS ORDERED: HYDROcodone-ACET 5/325MG TAB PO PRN (11:30)
[2024-11-03] MEDS ORDERED: SODIUM CHLORIDE 0.9% 1,000 ML IV ONE (11:30)
[2024-11-03] MEDS ORDERED: DOCUSATE SOD 100 MG CAP PO PRN (11:30)
--- NOTE | 2024-11-03 11:48 | DVHHP2 ---
History of Present Illness Reason for Visit: Abdominal pain History of Present Illness Layla, Cliff Wynne, is an 78-year-old male with past medical history of CVA, PR, hypertension, hyperlipidemia, asthma, and chronic renal insufficiency, who came in with complaints of abdominal pain. Patient states his abdominal pain began last night after eating mashed potatoes. He states the pain worsened and he did not have a bowel movement, prompting him to come to the ER. Patient has a history of hemicolectomy a few years ago. CT of abd/pelvis shows fluid in the small intestines, no bowel obstruction. Patient is a poor historian, can not tell me if or what medications he is taking. Patient was recently seen here and had an EGD completed. 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 Past Surgical History: Hernia Repair, Other (Hemicolectomy) Smoke: No ALCOHOL: none Drugs: None Lives: Alone Review of Systems Constitutional: Yes: Weakness; No: Fever, Chills, Sweats, Malaise, Other Eyes: No: Pain, Vision change, Conjunctivae inflammation, Eyelid inflammation, Other, Redness ENT: No: Ear pain, Ear discharge, Nose pain, Nose discharge, Nose congestion, Mouth pain, Mouth swelling, Throat pain, Throat swelling, Other Respiratory: No: Cough, Dry, Shortness of breath, SOB with excertion, Wheezing, Hemoptysis, Pleuritic Pain, Sputum, Wheezing, Other Cardiovascular: No: Chest Pain, Palpitations, Orthopnea, Paroxysmal Noc. Dyspnea, Edema, Lt Headedness, Other Gastrointestinal: Nausea, Vomiting, Abdominal Pain; No: Diarrhea, Constipation, Melena, Hematochezia, Other Genitourinary: No Dysuria, No Frequency, No Incontinence, No Hematuria, No Retention, No Other Musculoskeletal: No: other, neck pain, shoulder pain, arm pain, back pain, hand pain, leg pain, foot pain Skin: No: Rash, Lesions, Jaundice, Bruising, Other Neurological: Weakness; No: Numbness, Incoordination, Change in speech, Confusion, Seizures, Other Allergies: Coded Allergies: Chlorpromazine (Verified Allergy, Unknown, 08/02/16) Ciprofloxacin (Verified Allergy, Unknown, 08/07/16) Exam Vital Signs Vital Signs Date Time Temp Pulse Resp B/P (MAP) Pulse Ox O2 Delivery O2 Flow Rate FiO2 11/03/24 09:35 72 16 157/99 (118) 99 11/03/24 07:30 Room Air* 0 21 11/03/24 06:14 98.1 98.1 General Appearance: Alert, Oriented X3, Cooperative, mild distress HEENT: Atraumatic, PERRLA, Mucous membr. moist/pink Respiratory: Clear to auscultation, Normal air movement Cardiovascular: Regular rate, Normal S1, Normal S2, No murmurs Abdominal: Normal bowel sounds Extremities: No clubbing, No cyanosis, No edema, Normal pulses Skin: No breakdown, No significant lesion Neuro: Normal gait, Normal speech, Strength at 5/5 X4 ext Psych/Mental Status: Mental status NL, Mood NL Labs/Xrays Labs Test 11/03/24 04:42 Range/Units White Blood Count 9.5 4.4-10.8 10^3/uL Red Blood Count 4.43 L 4.5-5.90 10^6/uL Hemoglobin 14.1 13.5-17.5 g/dL Hematocrit 42.1 41.0-53.0 % Mean Corpuscular Volume 95.0 80.0-100.0 fL Mean Corpuscular Hemoglobin 31.7 28.0-32.0 pg Mean Corpuscular Hemoglobin Concent 33.4 32.0-36.0 g/dL Red Cell Distribution Width 13.8 11.8-14.3 % Platelet Count 252 140-450 10^3/uL Mean Platelet Volume 8.5 6.9-10.8 fL Neutrophils (%) (Auto) 84.8 H 37.0-80.0 % Lymphocytes (%) (Auto) 9.0 L 10.0-50.0 % Monocytes (%) (Auto) 5.0 0.0-12.0 % Eosinophils (%) (Auto) 0.5 0.0-7.0 % Basophils (%) (Auto) 0.7 0.0-2.0 % Neutrophils # (Auto) 8.0 1.6-8.6 10 ^3/uL Lymphocytes # (Auto) 0.9 0.4-5.4 10 ^3/uL Monocytes # (Auto) 0.5 0-1.3 10 ^3/uL Eosinophils # (Auto) 0 0-0.8 10 ^3/uL Basophils # (Auto) 0.1 0-0.2 10 ^3/uL Nucleated Red Blood Cells 0.0 % Prothrombin Time 10.3 9.3-11.8 sec Prothrombin Time INR 0.97 0.9-1.15 Activated Partial Thromboplast Time 27.1 24.5-34.5 SEC Sodium Level 141 136-145 mmol/L Potassium Level 4.0 3.5-5.1 mmol/L Chloride Level 103 98-107 mmol/L Carbon Dioxide Level 27 20-31 mmol/L Anion Gap 11 5-15 Blood Urea Nitrogen 13 9-23 mg/dL Creatinine 1.24 0.700-1.30 mg/dL Glomerular Filtration Rate Calc 58 >90 mL/min BUN/Creatinine Ratio 10.5 10.0-20.0 Serum Glucose 126 H 74-106 mg/dL Calcium Level 9.7 8.7-10.4 mg/dL Total Bilirubin 0.4 0.2-1.0 mg/dL Aspartate Amino Transferase (AST) 23 13-40 U/L Alanine Aminotransferase (ALT) 12 7-40 U/L Alkaline Phosphatase 117 H 46-116 U/L Total Protein 7.6 5.7-8.2 g/dL Albumin 4.9 H 3.2-4.8 g/dL Lipase 38 12-53 U/L Exam: CT CT AB PEL WITH IV CON ONLY FINDINGS: Lung Bases: Emphysema at the lung bases. Right basilar and left upper lobe atelectasis. Normal heart size. Coronary artery calcifications. No pleural or pericardial effusion. Liver: The liver is normal in size. No focal lesions. Normal hepatic vascular enhancement. Gallbladder and Biliary Tree: Unremarkable. No intrahepatic and extrahepatic biliary ductal dilatation. Spleen: Unremarkable Pancreas: The pancreas is normal in appearance without focal lesions or abnormal enhancement. Adrenal Glands: Unremarkable Kidneys: Kidneys demonstrate normal symmetric enhancement without focal lesions, calculi or hydronephrosis. Bladder: Unremarkable Bowel: Hiatal hernia. Fluid throughout the small bowel without abnormal dilatation. No small bowel wall thickening. Scattered stool throughout the colon. Colonic diverticulosis without acute diverticulitis. Surgical anastomosis in the transverse colon and possible partial right colonic resection. The appendix is not visualized; however, no secondary findings of acute appendicitis identified. Intraperitoneal cavity: No pneumoperitoneum. No ascites. Lymphadenopathy: No mesenteric, retroperitoneal or periportal lymphadenopathy. Abdominal Wall and Mesentery: Unremarkable. Vasculature: The visualized abdominal aorta is normal in size and caliber. Abdominal and pelvic vessels demonstrate normal enhancement. Pelvic Organs: Unremarkable Musculoskeletal: No aggressive focal bony lesions, acute fractures or dislocation. S shaped scoliosis. Soft tissues: Unremarkable. IMPRESSION: 1. Fluid-filled small bowel loops, nonspecific but may reflect mild enteritis. No bowel obstruction. 2. Colonic diverticulosis without acute diverticulitis. 3. Hiatal hernia. Assessment/Plan Assessment/Plan Assessment: Enteritis, Constipation, COPD, Plan: Admit to Med-Surg, IV hydration, IV antibiotics, PRN laxatives, Home medications reconciled, Plan discussed with: Patient My Orders Orders - FLACO GUTIERREZ Procedure Category Date Status Time Admit ADMIT 11/03/24 Transmitted 11:17 Code Status CODE 11/03/24 Transmitted 11:17 2 Gm Sodium Diet DIET 11/03/24 Transmitted Lunch Hydrocodone-Acet PHA 11/03/24 In Process 325mg Tab ([place] 11:30 Ondansetron Hcl PHA 11/03/24 In Process (Zofran) 11:30 Docusate Sodium PHA 11/03/24 Logged Capsule ([place] 11:30 Complete Blood Count LAB 11/04/24 Verified 04:00 Comprehensive LAB 11/04/24 Verified Metabolic Panel 04:00 Condition: Serious JEROD 11/03/24 In Process 11:17 Acetaminophen Tablet PHA 11/03/24 Logged (Tylenol Tablet) 11:30 Morphine Sulfate PHA 11/03/24 Logged Injection 11:30 Polyethylene Glycol PHA 11/03/24 Logged 17g Powder (Miralax 11:30 Polyethylene Glycol PHA 11/03/24 Logged 17g Powder (Miralax 11:30 Docusate Sodium PHA 11/03/24 Logged Capsule (Colace 22:00 Metronidazole PHA 11/03/24 Logged 500mg/100ml (Flagyl 14:00 Sodium Chloride 0.9% PHA 11/03/24 Logged 11:30 Date of Service: November 03, 2024 Billing Provider: FLACO GUTIERREZ Common Visit Codes: [id number] INP/OBS CARE (MOD) FLACO GUTIERREZ November 03, 2024 11:48
[2024-11-03] MEDS: metroNIDAZOLE 500MG/100ML 100 ML IV SCH (14:00)
[2024-11-03 22:15] VITALS: BP 122/86; PULSE 83; RESP 18; TEMP 97.7; O2SAT 97
[2024-11-03] MEDS: DOCUSATE SOD 100 MG CAP PO SCH (22:54)
[2024-11-03] MEDS: MORPHINE SULFATE INJ 2 MG/ml SYRG IV PRN (22:56)
[2024-11-03 23:40] LABS: Urine Bacteria None Seen /hpf (None Seen)
[2024-11-03 23:59] LABS: Urine Blood Negative /uL (Negative); Urine Clarity Clear (Clear); Urine Color Light-Yellow (Yellow); Urine Protein, UAD Negative (Negative); Urine Specific Gravity 1.025 (1.001-1.035); Urine Squamous Epithelial Cell None Seen /hpf (<5); Urine Urobilinogen Normal (Negative); Urine WBC < 1 /HPF (0-3)
[2024-11-04] VITALS (9 sets, daily range): BP systolic 95–135; BP diastolic 57–74; PULSE 63–90; RESP 16–19; TEMP 97.2–98.6; O2SAT 94–99
[2024-11-04 07:09] LABS: Basophils # (auto) 0 10 ^3/uL (0-0.2); Eosinophils # (auto) 0.2 10 ^3/uL (0-0.8); Eosinophils % (auto) 3.8 % (0.0-7.0); Hemoglobin 12.3 g/dL (13.5-17.5); Lymphocytes # (auto) 1.6 10 ^3/uL (0.4-5.4); Lymphocytes % (auto) 33.5 % (10.0-50.0); Mean Corpuscular Hemoglobin 31.4 pg (28.0-32.0); Mean Corpuscular Hgb Conc. 33.1 g/dL (32.0-36.0); Mean Corpuscular Volume 94.6 fL (80.0-100.0); Monocytes # (auto) 0.5 10 ^3/uL (0-1.3); Monocytes % (auto) 10.1 % (0.0-12.0); Neutrophils # (auto) 2.4 10 ^3/uL (1.6-8.6); Neutrophils % (auto) 51.6 % (37.0-80.0); Nucleated Red Blood Cells % 0.1 %; Platelet Count (auto) 207 10^3/uL (140-450); Red Blood Cells 3.91 10^6/uL (4.5-5.90); Red Cell Distribution Width 13.7 % (11.8-14.3); White Blood Cell 4.7 10^3/uL (4.4-10.8)
[2024-11-04 07:16] LABS: Alkaline Phosphatase 80 U/L (46-116); Anion Gap 8 (5-15); BUN/Creatinine Ratio 10.9 (10.0-20.0); Blood Urea Nitrogen 14 mg/dL (9-23); Calcium 8.7 mg/dL (8.7-10.4); Carbon Dioxide 27 mmol/L (20-31); Chloride 106 mmol/L (98-107); Glucose 86 mg/dL (74-106); Potassium 4.7 mmol/L (3.5-5.1); Sodium 141 mmol/L (136-145)
[2024-11-04 07:17] LABS: Alanine Aminotransferase < 9 U/L (7-40); Albumin 3.9 g/dL (3.2-4.8); Aspartate Aminotransferase 16 U/L (13-40)
[2024-11-04 07:18] LABS: Bilirubin, Total 0.6 mg/dL (0.2-1.0)
[2024-11-04] MEDS: POLYETHYLENE GLYCOL 17 GM PWDR PO PRN (09:27)
--- NOTE | 2024-11-04 12:14 | DVHPN2 ---
Reviewed: Care Plan, H&P, Labs, Medications, Previous Orders, Radiology Changes from previous H/P or p: No Changes Eyes: No Pain, No Vision change, No Conjunctivae inflammation, No Eyelid inflammation, No Other, No Redness ENT: No Ear pain, No Ear discharge, No Nose pain, No Nose discharge, No Nose congestion, No Mouth pain, No Mouth swelling, No Throat pain, No Throat swelling, No Other Cardiovascular: No Chest Pain, No Palpitations, No Orthopnea, No Paroxysmal Noc. Dyspnea, No Edema, No Lt Headedness, No Other Respiratory: No Cough, No Dry, No Shortness of breath, No SOB with excertion, No Wheezing, No Hemoptysis, No Pleuritic Pain, No Sputum, No Other Gastrointestinal: Nausea, Vomiting, Abdominal Pain; No Diarrhea, No Constipation, No Melena, No Hematochezia, No Other Genitourinary: No Dysuria, No Frequency, No Incontinence, No Hematuria, No Retention, No Other Musculoskeletal: No other, No neck pain, No shoulder pain, No arm pain, No back pain, No hand pain, No leg pain, No foot pain Skin: No Rash, No Lesions, No Jaundice, No Bruising, No Other Objective Vitals Vital Signs Date Time Temp Pulse Resp B/P (MAP) Pulse Ox O2 Delivery O2 Flow Rate FiO2 11/04/24 09:00 98.6 71 16 99/57 (71) 98 98.6 11/04/24 08:00 Room Air* 0 21 Intake/Output Intake and Output 11/04/24 07:00 Intake Total 1200 ml Balance 1200 ml Intake Oral 200 ml IV Total 1000 ml # Voids 2 Medications Current Medications Medications Dose Ordered Sig/Siva Route Start Time Stop Time Status Last Admin Dose Admin Acetaminophen/ Hydrocodone Bitart 1 tab Q4HP PRN PO 11/03/24 11:30 Ondansetron HCl 4 mg Q4HP PRN IV 11/03/24 11:30 Docusate Sodium 100 mg BIDPRN PRN PO 11/03/24 11:30 Acetaminophen 650 mg Q6HP PRN PO 11/03/24 11:30 Morphine Sulfate 2 mg Q4HPRN PRN IV 11/03/24 11:30 11/03/24 22:56 2 MG Polyethylene Glycol 17 gm DAILYPRN PRN PO 11/03/24 11:30 11/04/24 09:27 17 GM Docusate Sodium 100 mg BID PO 11/03/24 22:00 11/04/24 09:27 100 MG Metronidazole 100 ml @ 100 mls/hr Q8HR IV 11/03/24 14:00 11/04/24 06:38 100 MLS/HR Laboratory Results Laboratory Tests 11/04/24 05:42 Chemistry Test 11/04/24 05:42 Albumin 3.9 g/dL (3.2-4.8) Calcium Level 8.7 mg/dL (8.7-10.4) Total Protein 6.0 g/dL (5.7-8.2) LFT Test 11/04/24 05:42 Alanine Aminotransferase (ALT) < 9 U/L (7-40) Alkaline Phosphatase 80 U/L (46-116) Aspartate Amino Transferase (AST) 16 U/L (13-40) Total Bilirubin 0.6 mg/dL (0.2-1.0) Urinalysis Test 11/03/24 23:25 Urine Color Light-yellow (Yellow) Urine Clarity Clear (Clear) Urine pH 6.0 (5.0-9.0) Urine Specific [place] 1.025 (1.001-1.035) Urine Protein Negative (Negative) Urine Ketones Negative (Negative) Urine Blood Negative /uL (Negative) Urine Nitrite Negative (Negative) Urine Bilirubin Negative (Negative) Urine Urobilinogen Normal mg/dL (Negative) Urine Leukocyte Esterase Negative /uL (Negative) Urine RBC <1 /hpf (0 - 3) Urine Microscopic WBC < 1 /HPF (0-3) Urine Squamous Epithelial Cells None seen /hpf (<5) Urine Bacteria None seen /hpf (None Seen) Urine Glucose Normal mg/dL (Normal) Labs and/or images reviewed: Labs reviewed by me, Image(s) reviewed by me Assessment/Plan Assessment/Plan Acute abdominal pain Acute enterocolitis Flagyl Rocephin Zojayde Phillipco Possible food poisoning after eating mashed potatoes Diverticulosis Hypertension Hypercholesterolemia History of hemicolectomy History of [place] COPD History of CVA BPH Time Spent 65 minutes Advanced care planning time 20 minutes Patient is full code Plan discussed with: Patient Date of Service: November 04, 2024 Billing Provider: SEVERO RUBY MD Common Visit Codes: [id number] INP/OBS CARE(HIGH) Secondary Visit Codes: [id number] CARE PLAN 30 MINUTES SEVERO RUBY MD November 04, 2024 12:14
[2024-11-04] MEDS: cefTRIAXone 1GM/50ML D5W 50 ML IV ONE (17:12)
[2024-11-05 01:00] VITALS: BP 125/81; PULSE 73; RESP 19; TEMP 98; O2SAT 97
[2024-11-05 05:00] VITALS: BP 108/67; PULSE 65; RESP 18; TEMP 97.8; O2SAT 95
[2024-11-05 08:00] VITALS: BP 101/62; PULSE 75; RESP 20; TEMP 98.2; O2SAT 97
[2024-11-05] MEDS ORDERED: METR-344 PO (08:07)
--- NOTE | 2024-11-05 08:10 | DVHPN2 ---
Reviewed: Care Plan, H&P, Labs, Medications, Previous Orders, Radiology Changes from previous H/P or p: No Changes Eyes: No Pain, No Vision change, No Conjunctivae inflammation, No Eyelid inflammation, No Other, No Redness ENT: No Ear pain, No Ear discharge, No Nose pain, No Nose discharge, No Nose congestion, No Mouth pain, No Mouth swelling, No Throat pain, No Throat swelling, No Other Cardiovascular: No Chest Pain, No Palpitations, No Orthopnea, No Paroxysmal Noc. Dyspnea, No Edema, No Lt Headedness, No Other Respiratory: No Cough, No Dry, No Shortness of breath, No SOB with excertion, No Wheezing, No Hemoptysis, No Pleuritic Pain, No Sputum, No Other Gastrointestinal: Nausea, Vomiting, Abdominal Pain; No Diarrhea, No Constipation, No Melena, No Hematochezia, No Other Genitourinary: No Dysuria, No Frequency, No Incontinence, No Hematuria, No Retention, No Other Musculoskeletal: No other, No neck pain, No shoulder pain, No arm pain, No back pain, No hand pain, No leg pain, No foot pain Skin: No Rash, No Lesions, No Jaundice, No Bruising, No Other Objective Vitals Vital Signs Date Time Temp Pulse Resp B/P (MAP) Pulse Ox O2 Delivery O2 Flow Rate FiO2 11/05/24 05:00 97.8 65 18 108/67 (81) 95 97.8 11/04/24 20:00 Room Air* 0 21 Intake/Output Intake and Output 11/05/24 07:00 Intake Total 2050 ml Output Total 3375 ml Balance -1325 ml Intake Oral 1100 ml IV Total 950 ml Output Urine Total 3375 ml Medications Current Medications Medications Dose Ordered Sig/Siva Route Start Time Stop Time Status Last Admin Dose Admin Acetaminophen/ Hydrocodone Bitart 1 tab Q4HP PRN PO 11/03/24 11:30 Ondansetron HCl 4 mg Q4HP PRN IV 11/03/24 11:30 Docusate Sodium 100 mg BIDPRN PRN PO 11/03/24 11:30 Acetaminophen 650 mg Q6HP PRN PO 11/03/24 11:30 Morphine Sulfate 2 mg Q4HPRN PRN IV 11/03/24 11:30 11/04/24 17:21 2 MG Polyethylene Glycol 17 gm DAILYPRN PRN PO 11/03/24 11:30 11/04/24 09:27 17 GM Docusate Sodium 100 mg BID PO 11/03/24 22:00 11/04/24 21:11 100 MG Metronidazole 100 ml @ 100 mls/hr Q8HR IV 11/03/24 14:00 11/05/24 05:26 100 MLS/HR Ceftriaxone Sodium 50 ml @ 100 mls/hr DAILY@09 IV 11/05/24 09:00 Laboratory Results Laboratory Tests 11/04/24 05:42 Urinalysis Test 11/03/24 23:25 Urine Color Light-yellow (Yellow) Urine Clarity Clear (Clear) Urine pH 6.0 (5.0-9.0) Urine Specific [place] 1.025 (1.001-1.035) Urine Protein Negative (Negative) Urine Ketones Negative (Negative) Urine Blood Negative /uL (Negative) Urine Nitrite Negative (Negative) Urine Bilirubin Negative (Negative) Urine Urobilinogen Normal mg/dL (Negative) Urine Leukocyte Esterase Negative /uL (Negative) Urine RBC <1 /hpf (0 - 3) Urine Microscopic WBC < 1 /HPF (0-3) Urine Squamous Epithelial Cells None seen /hpf (<5) Urine Bacteria None seen /hpf (None Seen) Urine Glucose Normal mg/dL (Normal) Labs and/or images reviewed: Labs reviewed by me, Image(s) reviewed by me Assessment/Plan Assessment/Plan Acute abdominal pain resolved Acute enterocolitis treated with Rocephin Flagyl Zofran Possible food poisoning after eating mashed potatoes Diverticulosis Hypertension Hypercholesterolemia History of hemicolectomy History of [place] COPD History of CVA BPH Plan discussed with: Patient My Orders Orders - SEVERO RUBY MD Procedure Category Date Status Time Ceftriaxone 1gm/50ml PHA 11/05/24 In Process D5w (Rocephin) 09:00 Date of Service: November 05, 2024 Billing Provider: SEVERO RUBY MD Common Visit Codes: [id number] INP/OBS CARE(HIGH) SEVERO RUBY MD November 05, 2024 08:10
--- NOTE | 2024-11-05 08:17 | DVHDS2 ---
Discharge Summary Date of Admission November 03, 2024 at 11:17 Date of Discharge: November 05, 2024 Admitting Diagnosis abdominal pain nausea vomiting after eating mash potato Wounds: None Labs/Diagnostic Data: Laboratory Results Test 11/04/24 05:42 11/03/24 23:25 11/03/24 04:42 White Blood Count 4.7 10^3/uL (4.4-10.8) Red Blood Count 3.91 10^6/uL (4.5-5.90) Hemoglobin 12.3 g/dL (13.5-17.5) Hematocrit 37.0 % (41.0-53.0) Mean Corpuscular Volume 94.6 fL (80.0-100.0) Mean Corpuscular Hemoglobin 31.4 pg (28.0-32.0) Mean Corpuscular Hemoglobin Concent 33.1 g/dL (32.0-36.0) Red Cell Distribution Width 13.7 % (11.8-14.3) Platelet Count 207 10^3/uL (140-450) Mean Platelet Volume 8.6 fL (6.9-10.8) Neutrophils (%) (Auto) 51.6 % (37.0-80.0) Lymphocytes (%) (Auto) 33.5 % (10.0-50.0) Monocytes (%) (Auto) 10.1 % (0.0-12.0) Eosinophils (%) (Auto) 3.8 % (0.0-7.0) Basophils (%) (Auto) 1.0 % (0.0-2.0) Neutrophils # (Auto) 2.4 10 ^3/uL (1.6-8.6) Lymphocytes # (Auto) 1.6 10 ^3/uL (0.4-5.4) Monocytes # (Auto) 0.5 10 ^3/uL (0-1.3) Eosinophils # (Auto) 0.2 10 ^3/uL (0-0.8) Basophils # (Auto) 0 10 ^3/uL (0-0.2) Nucleated Red Blood Cells 0.1 % Sodium Level 141 mmol/L (136-145) Potassium Level 4.7 mmol/L (3.5-5.1) Chloride Level 106 mmol/L (98-107) Carbon Dioxide Level 27 mmol/L (20-31) Anion Gap 8 (5-15) Blood Urea Nitrogen 14 mg/dL (9-23) Creatinine 1.29 mg/dL (0.700-1.30) Glomerular Filtration Rate Calc 56 mL/min (>90) BUN/Creatinine Ratio 10.9 (10.0-20.0) Serum Glucose 86 mg/dL (74-106) Calcium Level 8.7 mg/dL (8.7-10.4) Total Bilirubin 0.6 mg/dL (0.2-1.0) Aspartate Amino Transferase (AST) 16 U/L (13-40) Alanine Aminotransferase (ALT) < 9 U/L (7-40) Alkaline Phosphatase 80 U/L (46-116) Total Protein 6.0 g/dL (5.7-8.2) Albumin 3.9 g/dL (3.2-4.8) Urine Color Light-yellow (Yellow) Urine Clarity Clear (Clear) Urine pH 6.0 (5.0-9.0) Urine Specific [place] 1.025 (1.001-1.035) Urine Protein Negative (Negative) Urine Ketones Negative (Negative) Urine Blood Negative /uL (Negative) Urine Nitrite Negative (Negative) Urine Bilirubin Negative (Negative) Urine Urobilinogen Normal mg/dL (Negative) Urine Leukocyte Esterase Negative /uL (Negative) Urine RBC <1 /hpf (0 - 3) Urine Microscopic WBC < 1 /HPF (0-3) Urine Squamous Epithelial Cells None seen /hpf (<5) Urine Bacteria None seen /hpf (None Seen) Urine Glucose Normal mg/dL (Normal) Prothrombin Time 10.3 sec (9.3-11.8) Prothrombin Time INR 0.97 (0.9-1.15) Activated Partial Thromboplast Time 27.1 SEC (24.5-34.5) Lipase 38 U/L (12-53) Other Laboratory Tests 11/04/24 05:42 Brief Hx & Hospital Course: 79-year-old male who lives in storage unit came in with a abdominal pain nausea and vomiting after eating mesh potato. History of hypertension hypercholesterolemia IA COPD CVA BPH diverticulosis. All labs were normal CT abdomen pelvis without contrast showed possible enterocolitis treated with Rocephin Flagyl and Zofran. At the time of discharge patient is asymptomatic stable vital signs afebrile. Social service consult was placed for placement. Patient refused and wants to go back to storage unit. APS report was done by the social services assistant Discharged on Flagyl. He will follow up with the discharge clinic in one week. Consults/Reason for consult None Operations or Procedures CT abdomen pelvis without contrast Condition at Discharge: Fair Final Diagnosis/Problems List Acute abdominal pain resolved Acute enterocolitis treated with Rocephin Flagyl Zofran Possible food poisoning after eating mashed potatoes Diverticulosis Hypertension Hypercholesterolemia History of hemicolectomy History of IA COPD History of CVA BPH Discharge Disposition: Home Discharge Instruct/Medications Diet: Cardiac 2g Na,low cholest Activity: No Restrictions, As Tolerated Follow Up/Referral: Follow up with the discharge clinic in one week Medications: Flagyl Transmitted to the pharmacy 35 (Time taken for discharge summary 35 minutes) Discharge Statement: "Patient was advised to return to the ER or call 911 if any headaches, dizziness, shortness of breath, chest pain, abdominal pain, bleeding, fevers, or worsening of medical condition. Patient was counseled about treatment plan, medications, possible side effects, patientverbalized understanding. All questions were answered to the best of my ability. This discharge took greater then 30 minutes in planning, reviewing documentation, counseling the patient, and discussing with other team members." ASSESSMENT ASSESSMENT Hospital Course Uneventful Assessment Acute abdominal pain resolved Acute enterocolitis treated with Rocephin Flagyl Zofran Possible food poisoning after eating mashed potatoes Diverticulosis Hypertension Hypercholesterolemia History of hemicolectomy History of IA COPD History of CVA BPH Date of Service: November 05, 2024 Billing Provider: SEVERO RUBY MD Common Visit Codes: 46939-BLH/OBS DISCH DAY >30min SEVERO RUBY MD November 05, 2024 08:16
[2024-11-05] MEDS: cefTRIAXone 1GM/50ML D5W 50 ML IV SCH (09:00)
[2024-11-05 10:30] VITALS: BP 101/62; PULSE 75; RESP 20; TEMP 98.2; O2SAT 97
[2024-11-05 12:00] VITALS: BP 117/62; PULSE 68; RESP 20; TEMP 97.5; O2SAT 99
== END 2024-11-05 15:40 | disposition home or self-care (01) | DRG 392 ==
LOC: ER 03:51 → OVERFLOW 11:17 → CENTRAL 21:45
PROVIDERS: ADMIT Family Medicine; ATTEND Family Medicine
DX: A05.9 Bacterial foodborne intoxication, unspecified (principal); Z59.00 Homelessness unspecified; E78.00 Pure hypercholesterolemia, unspecified; F17.210 Nicotine dependence, cigarettes, uncomplicated; I12.9 Hypertensive chronic kidney disease with stage 1 through stage 4 chronic kidney disease, or unspecified chronic kidney disease; J44.89 Other specified chronic obstructive pulmonary disease; K57.30 Diverticulosis of large intestine without perforation or abscess without bleeding; N18.9 Chronic kidney disease, unspecified; N40.0 Benign prostatic hyperplasia without lower urinary tract symptoms; K59.00 Constipation, unspecified; Z86.73 Personal history of transient ischemic attack (TIA), and cerebral infarction without residual deficits; Z88.1 Allergy status to other antibiotic agents; Z90.49 Acquired absence of other specified parts of digestive tract; I25.2 Old myocardial infarction; Z88.8 Allergy status to other drugs, medicaments and biological substances; Z79.899 Other long term (current) drug therapy
CPT/HCPCS: 36415; 74177; 80053; 81001; 83690; 85025; 85610; 85730; G0378; J2405; J3490

== ENCOUNTER 2024-11-11 20:15 | Emergency (ER) | payer MEDICARE, MEDICAID ==
[~2024-11-11] VITALS: Ht 172.7 cm; Wt 59.6 kg
[~2024-11-11 20:15] MED LIST changes: +METR-344 PO
[2024-11-11 21:54] LABS: Basophils # (auto) 0 10 ^3/uL (0-0.2); Basophils % (auto) 0.9 % (0.0-2.0); Eosinophils # (auto) 0.2 10 ^3/uL (0-0.8); Eosinophils % (auto) 4.2 % (0.0-7.0); Hematocrit 38.8 % (41.0-53.0); Hemoglobin 13.1 g/dL (13.5-17.5); Lymphocytes # (auto) 2.2 10 ^3/uL (0.4-5.4); Mean Corpuscular Hemoglobin 31.8 pg (28.0-32.0); Mean Corpuscular Hgb Conc. 33.9 g/dL (32.0-36.0); Mean Corpuscular Volume 93.6 fL (80.0-100.0); Monocytes # (auto) 0.5 10 ^3/uL (0-1.3); Monocytes % (auto) 10.5 % (0.0-12.0); Neutrophils # (auto) 2.1 10 ^3/uL (1.6-8.6); Neutrophils % (auto) 41.4 % (37.0-80.0); Nucleated Red Blood Cells % 0.1 %; Platelet Count (auto) 243 10^3/uL (140-450); Red Blood Cells 4.14 10^6/uL (4.5-5.90); Red Cell Distribution Width 13.6 % (11.8-14.3); White Blood Cell 5.1 10^3/uL (4.4-10.8)
--- NOTE | 2024-11-11 21:57 | ED.PDOC ---
GI ASSESSMENT HPI Comments 79-year-old male who came to ER to the abdominal pain. Patient was just discharged your last November 05, 2024 and was diagnosed with 1.Acute enterocolitis Possible food poisoning, 2. Diverticulosis, 3. Hypertension, 4. Hypercholesterolemia, 5. History of hemicolectomy, 6. History of [place] , 7. COPD , 8. History of CVA , .9. BPH. Patient is sent home on Rocephin and Flagyl. Earlier today, patient was walking, when he the sharp pain at his right inguinal area, and noted protruding right inguinal mass popping out. Chief Complaint: Abdominal Pain Time Seen by MD: 21:55 Primary Care Provider: NONE Reviewed Notes: Nurses Notes Allergies: Coded Allergies: Chlorpromazine (Verified Allergy, Unknown, 08/02/16) Ciprofloxacin (Verified Allergy, Unknown, 08/07/16) Home Meds Active Scripts Gabapentin (Once-Daily) (Gabapentin) 300 Mg Tab, 300 MG PO Q6HP PRN, #60 TAB Prov:KYRIE EDWARDS MD 11/12/24 Metronidazole (Flagyl) 500 Mg Tab, 1 TAB PO TID, #20 TAB Prov:SEVERO RUBY MD 11/05/24 Docusate Sodium (Docusate Sodium) 100 Mg Cap, 100 MG PO BID for 7 Days, #14 CAP Prov:KAYLIN BIANCHI MD 08/27/24 Acetaminophen (Tylenol 8 Hour Arthritis) 650 Mg Tab, 650 MG PO TID, #30 TAB Prov:SERGIO VALVERDE 07/02/24 Albuterol Sulfate (VENTOLIN MDI) 90 Mcg Ih, 90 MCG IN TIDPRN PRN for 30 Days, #1 INH 2 Refills Prov:LISSETTE MADDEN MD 06/21/24 Information Source: Patient Mode of Arrival: EMS Timing: Hours Duration: Since onset Prehospital treatment: None Quality: Sharp, Stabbing Vomitus: None Stool: Normal Severity: Moderate Recent: Recent Surgery Recent Hx of: Abdominal Operations Pain Location: RLQ (Right inguinal) Associated sign and symptoms: Abdominal Pain Past Medical History PAST MEDICAL HISTORY: Arthritis, Asthma, CKF, COPD, CVA, High Lipids, HTN, [place] Surgical History: Hernia Repair Surgical History (Other): Hemicolectomy Family History Family History: No family hx of Cancer, No family hx of DM, No family hx of HTN, No family hx ofKidney joe, No family hx of Liver joe, No family hx of Lung joe, No family hx of Stroke, Family hx of heart joe Social History Smoker: Cigarettes Alcohol: Sober Drugs: Denies Drug Use Lives In: Homeless Constitutional: denies: chills, diaphoresis, fatigue, fever, malaise, sweats, weakness, others EENTM: denies: blurred vision, double vision, ear bleeding, ear discharge, ear drainage, ear pain, ear ringing, eye pain, eye redness, hearing loss, mouth pain, mouth swelling, nasal discharge, nose bleeding, nose congestion, nose pain, photophobia, tearing, throat pain, throat swelling, voice changes, others Respiratory: denies: cough, hemoptysis, orthopnea, SOB at rest, shortness of breath, SOB with excertion, stridor, wheezing, others Cardiovascular: denies: chest pain, dizzy spells, diaphoresis, Dyspnea on exertion, edema, irregular heart beat, left arm pain, lightheadedness, palpitations, PND, syncope, others Gastrointestinal: reports: abdominal pain (RLQ); denies: abdomen distended, blood streaked bowels, constipated, diarrhea, dysphagia, difficulty swallowing, hematemesis, melena, nausea, poor appetite, poor fluid intake, rectal bleeding, rectal pain, vomiting, others Genitourinary: denies: burning, dysuria, flank pain, frequency, hematuria, incontinence, penile discharge, penile sore, pain, testicle pain, testicle swelling, urgency, others Neurological: denies: dizziness, fainting, headache, left sided numbness, left sided weakness, numbness, paresthesia, pre-existing deficit, right sided numbness, right sided weakness, seizure, speech problems, tingling, tremors, weakness, others Musculoskeletal: denies: back pain, gout, joint pain, joint swelling, muscle pain, muscle stiffness, neck pain, others Integumetry: denies: bruises, change in color, change in hair/nails, dryness, laceration, lesions, lumps, rash, wounds, others Allergic/Immunocompromised: denies: Difficulty Healing, Frequent Infections, Hives, Itching, others Hematologic/Lymphatic: denies: anemia, blood clots, easy bleeding, easy bruising, swollen glands, others Endocrine: denies: excessive hunger, excessive sweating, excessive thirst, excessive urination, flushing, intolerance to cold, intolerance to heat, unexplained weight gain, unexplained weight loss, others Psychiatric: denies: anxiety, bipolar disorder, depression, hopeless, panic disorder, schizophrenia, sleepless, suicidal, others Physical Exam General Appearance: No Apparent Distress, Normal HEENT: Normal ENT Inspection, Pharynx Normal, TMs Normal Neck: Full Range of Motion, Non-Tender, Normal, Normal Inspection Respiratory: Chest Non-Tender, Lungs Clear, No Accessory Muscle Use, No Respiratory Distress, Normal Breath Sounds Cardiovascular: No Edema, No JVD, No Murmur, No Gallop, Normal Peripheral Pulses, Regular Rate/Rhythm Breast Exam: Deferred Gastrointestinal: No Organomegaly, Non Tender, No Pulsatile Mass, Normal Bowel Sounds, Soft Genitalia: Deferred Pelvic: Deferred Rectal: Deferred Extremities: No calf tenderness, Normal capillary refill, Normal inspection, Normal range of motion, Non-tender, No pedal edema Musculoskeletal : Apperance: Normal Neurologic: Alert, vegetable scullion II-XII nml as Tested, No Motor Deficits, Normal Affect, Normal Mood, No Sensory Deficits Cerebellar Function: Normal Reflexes: Normal Skin: Dry, Normal Color, Warm Lymphatic: No Adenopathy Was a procedure done? Was a procedure done?: No GI differential Dx Differential Diagnosis: Bowel Obstruction, Constipation, Diverticular disease, Gastritis/PUD, Gastroenteritis, Hernia, Pancreatitis, UTI, Urolithiasis X-Ray, Labs, Meds, VS Vital Signs Date Time Temp Pulse Resp B/P (MAP) Pulse Ox O2 Delivery O2 Flow Rate FiO2 11/12/24 05:06 68 14 107/72 (84) 96 11/12/24 01:50 97.8 69 14 103/78 (86) 95 97.8 11/11/24 21:53 99.0 70 18 111/61 (78) 98 99.0 Lab Test 11/12/24 05:03 11/11/24 21:34 Range/Units Urine Color Pending Urine Clarity Pending Urine pH Pending Urine Specific [place] Pending Urine Protein Pending Urine Ketones Pending Urine Blood Pending Urine Nitrite Pending Urine Bilirubin Pending Urine Urobilinogen Pending Urine Leukocyte Esterase Pending Urine RBC Pending Urine Microscopic WBC Pending Urine Squamous Epithelial Cells Pending Urine Bacteria Pending Urine Glucose Pending White Blood Count 5.1 4.4-10.8 10^3/uL Red Blood Count 4.14 L 4.5-5.90 10^6/uL Hemoglobin 13.1 L 13.5-17.5 g/dL Hematocrit 38.8 L 41.0-53.0 % Mean Corpuscular Volume 93.6 80.0-100.0 fL Mean Corpuscular Hemoglobin 31.8 28.0-32.0 pg Mean Corpuscular Hemoglobin Concent 33.9 32.0-36.0 g/dL Red Cell Distribution Width 13.6 11.8-14.3 % Platelet Count 243 140-450 10^3/uL Mean Platelet Volume 8.5 6.9-10.8 fL Neutrophils (%) (Auto) 41.4 37.0-80.0 % Lymphocytes (%) (Auto) 43.0 10.0-50.0 % Monocytes (%) (Auto) 10.5 0.0-12.0 % Eosinophils (%) (Auto) 4.2 0.0-7.0 % Basophils (%) (Auto) 0.9 0.0-2.0 % Neutrophils # (Auto) 2.1 1.6-8.6 10 ^3/uL Lymphocytes # (Auto) 2.2 0.4-5.4 10 ^3/uL Monocytes # (Auto) 0.5 0-1.3 10 ^3/uL Eosinophils # (Auto) 0.2 0-0.8 10 ^3/uL Basophils # (Auto) 0 0-0.2 10 ^3/uL Nucleated Red Blood Cells 0.1 % Sodium Level 140 136-145 mmol/L Potassium Level 4.1 3.5-5.1 mmol/L Chloride Level 103 98-107 mmol/L Carbon Dioxide Level 29 20-31 mmol/L Anion Gap 8 5-15 Blood Urea Nitrogen 13 9-23 mg/dL Creatinine 1.20 0.700-1.30 mg/dL Glomerular Filtration Rate Calc 61 >90 mL/min BUN/Creatinine Ratio 10.8 10.0-20.0 Serum Glucose 107 H 74-106 mg/dL Calcium Level 9.6 8.7-10.4 mg/dL Total Bilirubin 0.5 0.2-1.0 mg/dL Aspartate Amino Transferase (AST) 19 13-40 U/L Alanine Aminotransferase (ALT) 12 7-40 U/L Alkaline Phosphatase 87 46-116 U/L Total Protein 7.5 5.7-8.2 g/dL Albumin 4.8 3.2-4.8 g/dL Lipase 38 12-53 U/L Current Medications Medications (Trade) Dose Ordered Sig/Siva Route Start Time Stop Time Status Last Admin Sodium Chloride 1,000 ml @ 1,000 mls/hr Q1H ONCE IVB 11/11/24 21:30 11/11/24 22:29 DC 11/12/24 02:01 Time of 1ST Reevaluation: 21:55 Reevaluation 1ST: Unchanged Patient Education/Counseling: Diagnosis, Treatment Family Education/Counseling: No Family Present Departure 1 Departure Time of Disposition: 04:00 Impression: Primary Impression: Abdominal pain Additional Impressions: Hiatal hernia Inguinal hernia Disposition: 01 HOME / SELF CARE / HOMELESS Condition: Stable e-Prescriptions Gabapentin (Once-Daily) (Gabapentin) 300 Mg Tab 300 MG PO Q6HP PRN, #60 TAB Prov: KYRIE EDWARDS MD 11/12/24 Discharged With: Self Critical Care Note Critical Care Time?: No Stability Stability form required: No Heart Score Heart Score: Heart Score Response (Comments) Value History N/A 0 EKG N/A 0 Age N/A 0 Risk Factors N/A 0 Troponin N/A 0 Total 0 I personally scribed for KYRIE EDWARDS MD ([email or web address]) on 11/11/24 at 21:57. Electronically submitted by Roberth Rodriguez ([email or web address]). KYRIE EDWARDS MD November 11, 2024 21:57
[2024-11-11 22:13] LABS: Alanine Aminotransferase 12 U/L (7-40); Albumin 4.8 g/dL (3.2-4.8); Alkaline Phosphatase 87 U/L (46-116); Anion Gap 8 (5-15); Aspartate Aminotransferase 19 U/L (13-40); BUN/Creatinine Ratio 10.8 (10.0-20.0); Blood Urea Nitrogen 13 mg/dL (9-23); Calcium 9.6 mg/dL (8.7-10.4); Carbon Dioxide 29 mmol/L (20-31); Chloride 103 mmol/L (98-107); Lipase 38 U/L (12-53); Potassium 4.1 mmol/L (3.5-5.1); Sodium 140 mmol/L (136-145); Total Protein 7.5 g/dL (5.7-8.2)
[2024-11-11 22:14] LABS: Bilirubin, Total 0.5 mg/dL (0.2-1.0); Glucose 107 mg/dL (74-106)
[2024-11-12 01:50] VITALS: TEMP 97.8
[2024-11-12] MEDS: SODIUM CHLORIDE 0.9% 1,000 ML IVB ONE (02:01)
[2024-11-12] MEDS: IOHEXOL 300 MG/ML 100ML BOTTLE IJ ONE (02:31)
--- NOTE | 2024-11-12 04:35 | DVH ---
Exam: CT CT AB PEL WITH IV CON ONLY History: abd pain Comparison Study: CT CT AB PEL WITH IV CON ONLY on DOS: 11/03/24 Contrast: Type of contrast: Omnipaque 300 Contrast injected: 100 mL Contrast wasted: 0 TECHNIQUE: CT of the abdomen pelvis was performed with intravenous contrast. Coronal and sagittal re formatted images are provided Radiation Dose Information: CT Dose: CTDI volume is 6.0 mGy. Dose-length product is 363.9 mGy*cm FINDINGS: Lung Bases: Tree-in-bud opacities in the left middle lobe and linear opacities abutting the fissure. Nodular tree-in-bud opacities in the right lower lobe and right middle lobe anteriorly. There is em physema. Normal heart size. No pleural or pericardial effusion. Liver: The liver is normal in size. No focal lesions. Normal hepatic vascular enhancement. Gallbladder and Biliary Tree: Gallbladder not visualized. No biliary ductal dilatation. Spleen: Unremarkable Pancreas: The pancreas is normal in appearance without focal lesions or abnormal enhancement. Adrenal Glands: Unremarkable Kidneys: Kidneys demonstrate normal symmetric enhancement without focal lesions, calculi or hydroneph rosis. Bladder: Unremarkable Bowel: Small hiatal hernia. Duodenal diverticulum. The small bowel is normal in caliber. Mild wall th ickening of right-sided small bowel loops. Surgical anastomosis in the colon. Scattered stool throug hout the colon. The appendix is not visualized; however, no secondary findings of acute appendicitis identified. Peritoneum: No pneumoperitoneum. No ascites. Lymphadenopathy: No mesenteric, retroperitoneal or periportal lymphadenopathy. Abdominal Wall and Mesentery: Unremarkable. Vasculature: The visualized abdominal aorta is normal in size and caliber with mild atherosclerotic c alcifications. No dissection or aneurysm. The celiac, superior and inferior mesenteric arteries are patent. Atherosclerotic calcifications of the left renal artery origin without significant stenosis. Right renal artery origin is patent. Bilateral iliac arteries and branches are patent. Pelvic Organs: Unremarkable Musculoskeletal: No aggressive focal bony lesions, acute fractures or dislocation. Multilevel lumbar spondylosis. Soft tissues: Right inguinal hernia containing unobstructed small bowel loops. IMPRESSION: 1. Mild wall thickening of right-sided small bowel loops which may represent enteritis. No bowel obst ruction. 2. Tree-in-bud opacities at the lung bases and emphysema. Linear opacities in the left upper lobe ab utting the fissure. A dedicated noncontrast chest CT may be obtained for further evaluation. 3. Right inguinal hernia containing a portion of unobstructed bowel loop. 4. Small hiatal hernia. All CT scans at this medical facility are performed using dose modulation techniques as appropriate t o a performed exam including the following: Automated exposure control was utilized; adjustment of th e MA and/or KV according to patient size; and use of iterative reconstruction technique.
[2024-11-12] MEDS ORDERED: GABA300T4 PO (04:55)
[2024-11-12 05:06] VITALS: BP 107/72; PULSE 68; RESP 14; O2SAT 96
[2024-11-12 05:06] LABS: Urine Bacteria None Seen /hpf (None Seen)
[2024-11-12 05:45] LABS: Urine Blood Negative /uL (Negative); Urine Clarity Clear (Clear); Urine Color Light-Yellow (Yellow); Urine Protein, UAD Negative (Negative); Urine Squamous Epithelial Cell None Seen /hpf (<5); Urine Urobilinogen Normal (Negative); Urine WBC < 1 /HPF (0-3); Urine pH 5.5 (5.0-9.0)
[2024-11-12 05:48] LABS: Urine Specific Gravity > 1.050 (1.001-1.035)
== END 2024-11-12 05:07 | disposition home or self-care (01) ==
LOC: ER 20:15
DX: K40.90 Unilateral inguinal hernia, without obstruction or gangrene, not specified as recurrent (principal); K44.9 Diaphragmatic hernia without obstruction or gangrene; J44.89 Other specified chronic obstructive pulmonary disease; F17.210 Nicotine dependence, cigarettes, uncomplicated; I10 Essential (primary) hypertension; I25.2 Old myocardial infarction; M19.90 Unspecified osteoarthritis, unspecified site; Z59.00 Homelessness unspecified; Z86.73 Personal history of transient ischemic attack (TIA), and cerebral infarction without residual deficits; Z88.1 Allergy status to other antibiotic agents; Z90.49 Acquired absence of other specified parts of digestive tract; Z98.890 Other specified postprocedural states
CPT/HCPCS: 36415; 74177; 80053; 81001; 83690; 85025; 96360; 99285; J7030; Q9967

== ENCOUNTER 2025-01-03 20:21 | Emergency (ER) | payer MEDICARE, MEDICAID ==
[~2025-01-03] VITALS: Ht 180.3 cm; Wt 54.1 kg
[~2025-01-03 20:21] MED LIST changes: +GABA300T4 PO
[2025-01-03 20:55] VITALS: BP 128/82; RESP 20; TEMP 97.3; O2SAT 99
--- NOTE | 2025-01-03 21:05 | ECG ---
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
[2025-01-03 21:31] VITALS: PULSE 85
--- NOTE | 2025-01-03 21:31 | ED.PDOC ---
History of Present Illness HPI Comments 79-year-old male who presents with chief complaint of shortness of breath, productive cough, headache, dizziness, chest pain, abdominal pain, neck pain, and nausea. Patient is a poor historian. Previous medical records, patient has a extensive significant medical history, which includes: Arthritis, asthma, CK of, COPD, CVA, BPH, HLD, HTN, [place], tobacco abuse, and hemicolectomy. He endorses on his primary concern being his shortness of breath, headache, and dizziness, which began last night. Chest pain abdominal pain it is reported that started 4-5 hours ago and is 10/10 in severity and sharp in quality. No further acute associated symptoms endorsed. Chief Complaint: Shortness of Breath Time Seen by MD: 20:50 Primary Care Provider: NONE Reviewed Notes: Nurses Notes, Medications, Allergies Allergies: Coded Allergies: Chlorpromazine (Verified Allergy, Unknown, 08/02/16) Ciprofloxacin (Verified Allergy, Unknown, 08/07/16) Home Meds Active Scripts Gabapentin (Once-Daily) (Gabapentin) 300 Mg Tab, 300 MG PO Q6HP PRN, #60 TAB Prov:KYRIE EDWARDS MD 11/12/24 Metronidazole (Flagyl) 500 Mg Tab, 1 TAB PO TID, #20 TAB Prov:SEVERO RUBY MD 11/05/24 Docusate Sodium (Docusate Sodium) 100 Mg Cap, 100 MG PO BID for 7 Days, #14 CAP Prov:KAYLIN BIANCHI MD 08/27/24 Acetaminophen (Tylenol 8 Hour Arthritis) 650 Mg Tab, 650 MG PO TID, #30 TAB Prov:SERGIO VALVERDE 07/02/24 Albuterol Sulfate (VENTOLIN MDI) 90 Mcg Ih, 90 MCG IN TIDPRN PRN for 30 Days, #1 INH 2 Refills Prov:LISSETTE MADDEN MD 06/21/24 Information Source: Patient Mode of Arrival: Ambulatory Review of Systems: REVIEW OF SYSTEMS: General: No fever, no chills, or fatigue HEENT: No sore throat, no earache, no congestion, no neck pain. Cardiac: Chest pain. No palpitations. Lungs: Shortness of breath, productive cough GI: Abdominal pain, nausea no vomiting, no diarrhea, no constipation, no abdominal pain : No dysuria, frequency, or urgency. No hematuria. Musculoskeletal: Neck pain , no joint swelling, no extremity edema. Skin: No rash, no itching. Neuro: Headache, dizziness, no weakness Vital Signs Vital Signs Date Time Temp Pulse Resp B/P (MAP) Pulse Ox O2 Delivery O2 Flow Rate FiO2 01/03/25 21:31 85 01/03/25 20:55 99 Room Air* 0 21 01/03/25 20:55 97.3 20 128/82 (97) 97.3 Physical Exam PHYSICAL EXAM: General: Awake, alert and oriented. No acute distress. Appears emaciated Skin: Skin in warm, dry and intact. Appropriate color for ethnicity. HEENT: The head is normocephalic and atraumatic. Conjunctivae are clear without exudates or hemorrhage. Sclera is non-icteric. EOM are intact. No signs of nystagmus. Eyelids are normal in appearance without swelling or lesions. Oral mucosa is pink and moist. Contracture of the neck Neck: The neck is supple with normal range of motion. No JVD. Cardiac: Heart rate and rhythm are normal. No murmurs, gallops, or rubs are auscultated. Respiratory: Raspy voice. No signs of respiratory distress. Lung sounds are clear in all lobes bilaterally without rales, rhonchi, or wheezes. Abdominal: Generalized abdominal tenderness. Remaining abdomen is soft, without distention, guarding or rigidity Extremities: Upper and lower extremities are atraumatic in appearance without deformity or edema. Neurological: The patient is awake, alert and oriented to person, place, and time with normal speech. Speech is clear. There is no facial asymmetry. Psychiatric: Appropriate mood and affect. Good judgement and insight. Past Medical History PAST MEDICAL HISTORY: Arthritis, Asthma, CKF, COPD, CVA, High Lipids, HTN, [place] Past Medical History (Other): BPH Diverticulosis Enterocolitis Surgical History: Hernia Repair Surgical History (Other): Hemicolectomy Left eye blindness Family History Family History: No family hx of Cancer, No family hx of DM, No family hx of HTN, No family hx ofKidney joe, No family hx of Liver joe, No family hx of Lung joe, No family hx of Stroke, Family hx of heart joe Social History Smoker: Cigarettes Alcohol: Sober Drugs: Denies Drug Use Lives In: Homeless Was a procedure done? Was a procedure done?: No EKG EKG : Pulse Rate (adult): 85 [place]: Normal Cardiac Rhythm: NSR, PVC's Block: None Hypertrophy: LVH ST: Normal Comments No STEMI Differential Dx Considerations may include: Differential diagnoses considered includebut arenot limited to acute Bronchitis, Asthma, COPD, Pneumothorax, PE, CHF, Pulmonary HTN, Anemia, CO Poisoning, Methemoglobinemia, Hyperventilation, Metabolic Acidosis, Pulmonary Edema, Pneumonia, ACS, Pericardial Tamponade, Anxiety, other X-Ray, Labs, Meds, VS Vital Signs Date Time Temp Pulse Resp B/P (MAP) Pulse Ox O2 Delivery O2 Flow Rate FiO2 01/03/25 21:31 85 01/03/25 20:58 85 01/03/25 20:55 99 Room Air* 0 21 01/03/25 20:55 97.3 78 20 128/82 (97) 99 97.3 Time of 1ST Reevaluation: 21:20 Reevaluation 1ST: Unchanged Patient Education/Counseling: Need For Follow Up Family Education/Counseling: No Family Present SEPSIS Sepsis Screen Date sepsis recognized/suspect: Jan 03, 2025 Time Sepsis recognized/suspect: 2054 Recent Procedure: No On Antibiotic Therapy: No Respiratory Rate >20: No Heart Rate >90: No Temp<36 C (96.8 F) or >38.3 C: No SBP <90 or MAP <65 mmHG: No New Acute Mental Status Change: No Is the patient on CPAP, BIPAP,: No Physician Orders Electrocardigram (01/03/25 22:03) Electrocardigram (01/04/25 00:03) Vital Signs Q1HR (01/03/25 21:14) Vital Signs Date Time Temp Pulse Resp B/P (MAP) Pulse Ox O2 Delivery O2 Flow Rate FiO2 01/03/25 21:31 85 01/03/25 20:58 85 01/03/25 20:55 99 Room Air* 0 21 01/03/25 20:55 97.3 78 20 128/82 (97) 99 97.3 Departure 1 Departure Time of Disposition: 01:08 Impression: Primary Impression: Eloped from emergency department Disposition: 07 LEFT AWOL/ELOPED Condition: Other Comments Patient was seen and evaluated in the triage area shortly after arrival to the emergency department. Discussed plan of care patient. Patient eloped from the emergency department prior to completing workup. I was unable to be locate patient in the ER lobby, outside of the lobby, outside of the ER. The following test were independently interpreted by me: EKG I reviewed and agreed with the following test results read by other providers: N/A I reviewed the following notes from the pt's past medical encounters: August 25, 2024, November 03, 2024, November 11, 2024, encounter for intractable abdominal pain, enteritis, abdominal pain, respectively Additional information was gathered from interviewing the following independent historians: N/A Critical Care Note Critical Care Time?: No Stability Stability form required: No Heart Score Heart Score: Heart Score Response (Comments) Value History N/A 0 EKG N/A 0 Age N/A 0 Risk Factors N/A 0 Troponin N/A 0 Total 0 I personally scribed for VALENTE SETHI MD ([email or web address]) on 01/03/25 at 21:31. Electronically submitted by René Montoya ([email or web address]). VALENTE SETHI MD Jan 03, 2025 21:31
[2025-01-03] MEDS: ALBUTEROL SULF 2.5 MG/0.5ML(0.5%) NEB SOLN NEB ONE (21:49)
== END 2025-01-03 21:58 | disposition left against medical advice (07) ==
LOC: ER 20:21
DX: R06.02 Shortness of breath (principal); R05.8 Other specified cough; R51.9 Headache, unspecified; R42 Dizziness and giddiness; F17.210 Nicotine dependence, cigarettes, uncomplicated; E78.5 Hyperlipidemia, unspecified; H54.62 Unqualified visual loss, left eye, normal vision right eye; I10 Essential (primary) hypertension; I25.2 Old myocardial infarction; J44.89 Other specified chronic obstructive pulmonary disease; M19.90 Unspecified osteoarthritis, unspecified site; N40.0 Benign prostatic hyperplasia without lower urinary tract symptoms; Z59.00 Homelessness unspecified; Z86.73 Personal history of transient ischemic attack (TIA), and cerebral infarction without residual deficits; Z88.1 Allergy status to other antibiotic agents; Z90.49 Acquired absence of other specified parts of digestive tract; Z98.890 Other specified postprocedural states; Z79.899 Other long term (current) drug therapy
CPT/HCPCS: 93005

== ENCOUNTER 2025-02-07 15:54 | Emergency (ER) | payer MEDICARE, MEDICAID ==
[~2025-02-07] VITALS: Ht 180.3 cm; Wt 56.0 kg
--- NOTE | 2025-02-07 17:16 | ED.PDOC ---
Eye-HPI HPI Comments This is a 79 year old male presenting to the ED with chief complaint of vision/hearing changes and cataract problem. Patient reports that he has been experiencing vision loss to both eyes with associated eye pain and hearing loss of the left ear for the past few days. Patient relays that he was seen by an mental health professional today and was advised to follow up immediately with an milieu counselor in [place] after his evaluation. Patient notes he also has a infection to his teeth that spread to his left ear and left eye. Denies eye discharge Denies nausea, vomiting Denies difficulty keeping eye open, feeling of something stuck in the eye, sensitivity to light Patient's Manufacturing Technologist was called to collect further information. Stand Grinder from office noted that patient was seen today and determined to have cataracts to bilateral eyes, left being worse than right. Stand Grinder reports that the patient had no evidence of macular degeneration or eye disease requiring immediate evaluation at this time. Patient states he was advised by the office to come to the ED for transport, but coffee shop manager does not note this in their evaluation of the patient. Patient's left eye acuity noted to be 20/100 and right eye 20/60. Chief Complaint: Eye Problem Time Seen by MD: 16:56 Primary Care Provider: NONE Reviewed Notes: Nurses Notes, Marble Installation Helper Notes, Allergies Allergies: Coded Allergies: Chlorpromazine (Verified Allergy, Unknown, 08/02/16) Ciprofloxacin (Verified Allergy, Unknown, 08/07/16) Home Meds Active Scripts Gabapentin (Once-Daily) (Gabapentin) 300 Mg Tab, 300 MG PO Q6HP PRN, #60 TAB Prov:KYRIE EDWARDS MD 11/12/24 Metronidazole (Flagyl) 500 Mg Tab, 1 TAB PO TID, #20 TAB Prov:SEVERO RUBY MD 11/05/24 Docusate Sodium (Docusate Sodium) 100 Mg Cap, 100 MG PO BID for 7 Days, #14 CAP Prov:KAYLIN BIANCHI MD 08/27/24 Acetaminophen (Tylenol 8 Hour Arthritis) 650 Mg Tab, 650 MG PO TID, #30 TAB Prov:SERGIO VALVERDE 07/02/24 Albuterol Sulfate (VENTOLIN MDI) 90 Mcg Ih, 90 MCG IN TIDPRN PRN for 30 Days, #1 INH 2 Refills Prov:LISSETTE MADDEN MD 06/21/24 Information Source: Patient Mode of Arrival: Ambulatory Timing: Days Duration: Since onset Prehospital treatment: None Quality: Hearing loss Onset: Spontaneous Throat Exposed to: None History of: None Past Medical History PAST MEDICAL HISTORY: Arthritis, Asthma, CKF, COPD, CVA, High Lipids, HTN, [place] Surgical History: Hernia Repair Family History Family History: No family hx of Cancer, No family hx of DM, No family hx of HTN, No family hx ofKidney joe, No family hx of Liver joe, No family hx of Lung joe, No family hx of Stroke, Family hx of heart joe Social History Smoker: Cigarettes Alcohol: Sober Drugs: Denies Drug Use Lives In: Homeless Constitutional: denies: chills, diaphoresis, fatigue, fever, malaise, sweats, weakness, others EENTM: reports: blurred vision, hearing loss; denies: double vision, ear bleeding, ear discharge, ear drainage, ear pain, ear ringing, eye pain, eye redness, mouth pain, mouth swelling, nasal discharge, nose bleeding, nose congestion, nose pain, photophobia, tearing, throat pain, throat swelling, voice changes, others Respiratory: denies: cough, hemoptysis, orthopnea, SOB at rest, shortness of breath, SOB with excertion, stridor, wheezing, others Cardiovascular: denies: chest pain, dizzy spells, diaphoresis, Dyspnea on exertion, edema, irregular heart beat, left arm pain, lightheadedness, palpitations, PND, syncope, others Gastrointestinal: denies: abdomen distended, abdominal pain, blood streaked bowels, constipated, diarrhea, dysphagia, difficulty swallowing, hematemesis, melena, nausea, poor appetite, poor fluid intake, rectal bleeding, rectal pain, vomiting, others Genitourinary: denies: burning, dysuria, flank pain, frequency, hematuria, incontinence, penile discharge, penile sore, pain, testicle pain, testicle swelling, urgency, others Neurological: denies: dizziness, fainting, headache, left sided numbness, left sided weakness, numbness, paresthesia, pre-existing deficit, right sided numbness, right sided weakness, seizure, speech problems, tingling, tremors, weakness, others Musculoskeletal: denies: back pain, gout, joint pain, joint swelling, muscle pain, muscle stiffness, neck pain, others Integumetry: denies: bruises, change in color, change in hair/nails, dryness, laceration, lesions, lumps, rash, wounds, others Allergic/Immunocompromised: denies: Difficulty Healing, Frequent Infections, Hives, Itching, others Hematologic/Lymphatic: denies: anemia, blood clots, easy bleeding, easy bruising, swollen glands, others Endocrine: denies: excessive hunger, excessive sweating, excessive thirst, excessive urination, flushing, intolerance to cold, intolerance to heat, unexplained weight gain, unexplained weight loss, others Psychiatric: denies: anxiety, bipolar disorder, depression, hopeless, panic disorder, schizophrenia, sleepless, suicidal, others All Other Systems: Reviewed and Negative Physical Exam General Appearance: No Apparent Distress, Normal HEENT: Normal ENT Inspection, Pharynx Normal, TMs Normal, Other (Left eye OP 10 and right eye OP 12.) Neck: Full Range of Motion, Non-Tender, Normal, Normal Inspection Respiratory: Chest Non-Tender, Lungs Clear, No Accessory Muscle Use, No Respiratory Distress, Normal Breath Sounds Cardiovascular: No Edema, No JVD, No Murmur, No Gallop, Normal Peripheral Pulses, Regular Rate/Rhythm Breast Exam: Deferred Gastrointestinal: No Organomegaly, Non Tender, No Pulsatile Mass, Normal Bowel Sounds, Soft Genitalia: Deferred Pelvic: Deferred Rectal: Deferred Extremities: No calf tenderness, Normal capillary refill, Normal inspection, Normal range of motion, Non-tender, No pedal edema Musculoskeletal : Apperance: Normal Neurologic: Alert, artillery meteorological man II-XII nml as Tested, No Motor Deficits, Normal Affect, Normal Mood, No Sensory Deficits Cerebellar Function: Normal Reflexes: Normal Skin: Dry, Normal Color, Warm Lymphatic: No Adenopathy Was a procedure done? Was a procedure done?: No EENT DIFF Eye: Other X-Ray, Labs, Meds, VS Vital Signs Date Time Temp Pulse Resp B/P (MAP) Pulse Ox O2 Delivery O2 Flow Rate FiO2 02/07/25 17:54 86 18 98 Room Air 02/07/25 17:54 98.7 87 18 118/67 (84) 98 98.7 02/07/25 15:56 97.8 82 15 130/75 99 97.8 X-Ray, Labs, Meds, VS Comment This is a 79 year old male presenting to the ED with chief complaint of vision loss/cataract problem. Patient arrives alert and oriented, ABC's intact, afebrile, vital signs stable, saturating well in room air On reevaluation, patient had symptomatic improvement. Patient is stable for discharge at this time. External notes reviewed. Test results and diagnostic imaging interpreted. All diagnostic findings, discharge care, education and instructions provided Follow-up with PCP in 2 to 3 days Patient verbalized understanding and agreed to treatment plan Vital signs stable, afebrile, no acute distress noted Patient ambulatory with strong steady gait Advised to return precautions for any new or worsening symptoms, return to ER immediately for re-evaluation Patient is aware that the purpose of this visit was for an acute medical emergency requiring emergent stabilization. Chronic conditions, including malignancies have not been ruled out. Patient is instructed to follow up with PCP as directed and discharge instructions for continued care and workup. If unable to arrange follow-up, patient is to return to the emergency department for reassessment. Patient (parent or legal guardian if applicable) was given verbal and written discharge instructions and acknowledges understanding. Additional MDM Review of External, Non-ED records: External records reviewed. Discussion with independent historian (EMS, family) history obtained from the patient/parents (if applicable) at bedside Chronic conditions affecting care: None Social determinants of health affecting care: None Consideration of admission (observation or admission): I considered escalation of care to admission for this patient, however given the reassuring workup, the patient is safe for outpatient management. Discussion with the Radiology: No Time of 1ST Reevaluation: 17:30 Reevaluation 1ST: Improved Patient Education/Counseling: Diagnosis, Treatment Family Education/Counseling: No Family Present SEPSIS Sepsis Screen Date sepsis recognized/suspect: Feb 07, 2025 Time Sepsis recognized/suspect: 1558 Recent Procedure: No On Antibiotic Therapy: No Respiratory Rate >20: No Heart Rate >90: No Temp<36 C (96.8 F) or >38.3 C: No SBP <90 or MAP <65 mmHG: No New Acute Mental Status Change: No Is the patient on CPAP, BIPAP,: No Vital Signs Date Time Temp Pulse Resp B/P (MAP) Pulse Ox O2 Delivery O2 Flow Rate FiO2 02/07/25 17:54 86 18 98 Room Air 02/07/25 17:54 98.7 87 18 118/67 (84) 98 98.7 02/07/25 15:56 97.8 82 15 130/75 99 97.8 Departure 1 Departure Time of Disposition: 17:40 Impression: Primary Impression: Cataracts, bilateral Qualified Codes: H26.9 - Unspecified cataract Disposition: HOME / SELF CARE / HOMELESS Condition: Stable Discharged With: Self Critical Care Note Critical Care Time?: No Stability Stability form required: No Heart Score Heart Score: Heart Score Response (Comments) Value History N/A 0 EKG N/A 0 Age N/A 0 Risk Factors N/A 0 Troponin N/A 0 Total 0 I personally scribed for MELVINA MAN NP ([email or web address]) on 02/07/25 at 17:16. Electronically submitted by Chip Bender ([email or web address]). MELVINA MAN NP Feb 07, 2025 17:16
[2025-02-07 17:54] VITALS: BP 118/67; PULSE 86; RESP 18; TEMP 98.7; O2SAT 98
== END 2025-02-07 17:56 | disposition home or self-care (01) ==
LOC: ER 15:54
DX: H26.9 Unspecified cataract (principal); M19.90 Unspecified osteoarthritis, unspecified site; I10 Essential (primary) hypertension; F17.210 Nicotine dependence, cigarettes, uncomplicated; Z59.00 Homelessness unspecified; Z86.73 Personal history of transient ischemic attack (TIA), and cerebral infarction without residual deficits; Z88.1 Allergy status to other antibiotic agents; Z98.890 Other specified postprocedural states

== ENCOUNTER 2025-02-23 12:33 | Emergency (ER) | payer MEDICARE, MEDICAID ==
[~2025-02-23] VITALS: Ht 180.3 cm; Wt 56.5 kg
[2025-02-23] MEDS ORDERED: CLIN1CAP70 PO (14:11)
--- NOTE | 2025-02-23 14:12 | ED.PDOC ---
Eye-HPI HPI Comments THIS IS AN 79 YEAR-OLD MALE, WITH A HX OF COPD, CVA AND HTN WHO PRESENTS TO THE ED WITH A CHIEF COMPLAINT OF GENERAL TOOTH PAIN FOR MONTHS. PATIENT REPORTS DENTAL PAIN WORSENING OVER THE PAST WEEK, WITH DRAINAGE NOTED. PATIENT HAS NO FURTHER COMPLAINTS AT THIS TIME AND OTHERWISE DENIES FURTHER SYMPTOMS OF COUGH, SOB, SORE THROAT, OR NASAL CONGESTION. PATIENT IS ALERT, ORIENTED X 4, AND HAS STEADY GAIT. Chief Complaint: Tooth Pain Time Seen by MD: 14:05 Primary Care Provider: NONE Reviewed Notes: Nurses Notes, Medications, Allergies Allergies: Coded Allergies: Chlorpromazine (Verified Allergy, Unknown, 08/02/16) Ciprofloxacin (Verified Allergy, Unknown, 08/07/16) Home Meds Active Scripts Acetaminophen (Tylenol 8 Hour Arthritis) 650 Mg Tab, 650 MG PO TID, #30 TAB Prov:SERGIO VALVERDE 02/23/25 Clindamycin Hcl (Clindamycin Hcl) 300 Mg Cap, 1 CAP PO TID, #30 CAP Prov:SERGIO VALVERDE 02/23/25 Gabapentin (Once-Daily) (Gabapentin) 300 Mg Tab, 300 MG PO Q6HP PRN, #60 TAB Prov:KYRIE EDWARDS MD 11/12/24 Metronidazole (Flagyl) 500 Mg Tab, 1 TAB PO TID, #20 TAB Prov:SEVERO RUBY MD 11/05/24 Docusate Sodium (Docusate Sodium) 100 Mg Cap, 100 MG PO BID for 7 Days, #14 CAP Prov:KAYLIN BIANCHI MD 08/27/24 Acetaminophen (Tylenol 8 Hour Arthritis) 650 Mg Tab, 650 MG PO TID, #30 TAB Prov:SERGIO VALVERDE 07/02/24 Albuterol Sulfate (VENTOLIN MDI) 90 Mcg Ih, 90 MCG IN TIDPRN PRN for 30 Days, #1 INH 2 Refills Prov:LISSETTE MADDEN MD 06/21/24 Information Source: Patient Mode of Arrival: Ambulatory Timing: Months Duration: Since onset, Days Quality: Pain, Red Conjunctiva: Normal EOM: Normal Mouth Location: Right, Lower, Tooth/Teeth, Gums Mouth: Right, Lower, Premolar, Molar, Tender, Carious, Necrotic Nose: Normal Sinuses: Normal Oropharynx: Normal Onset: Spontaneous Throat Exposed to: None History of: None Last Tetanus: UTD Associated signs and symptoms: Tooth Pain Past Medical History PAST MEDICAL HISTORY: Arthritis, Asthma, COPD, CVA, High Lipids, HTN Surgical History: Hernia Repair Family History Family History: No family hx of Cancer, No family hx of DM, No family hx of HTN, No family hx ofKidney joe, No family hx of Liver joe, No family hx of Lung joe, No family hx of Stroke, Family hx of heart joe Social History Smoker: Cigarettes Alcohol: Sober Drugs: Denies Drug Use Lives In: Homeless Constitutional: denies: chills, diaphoresis, fatigue, fever, malaise, sweats, weakness, others EENTM: reports: mouth pain, others (TOOTH PAIN ); denies: blurred vision, double vision, ear bleeding, ear discharge, ear drainage, ear pain, ear ringing, eye pain, eye redness, hearing loss, mouth swelling, nasal discharge, nose bleeding, nose congestion, nose pain, photophobia, tearing, throat pain, throat swelling, voice changes Respiratory: denies: cough, hemoptysis, orthopnea, SOB at rest, shortness of breath, SOB with excertion, stridor, wheezing, others Cardiovascular: denies: chest pain, dizzy spells, diaphoresis, Dyspnea on exertion, edema, irregular heart beat, left arm pain, lightheadedness, palpitations, PND, syncope, others Gastrointestinal: denies: abdomen distended, abdominal pain, blood streaked bowels, constipated, diarrhea, dysphagia, difficulty swallowing, hematemesis, melena, nausea, poor appetite, poor fluid intake, rectal bleeding, rectal pain, vomiting, others Genitourinary: denies: burning, dysuria, flank pain, frequency, hematuria, incontinence, penile discharge, penile sore, pain, testicle pain, testicle swelling, urgency, others Neurological: denies: dizziness, fainting, headache, left sided numbness, left sided weakness, numbness, paresthesia, pre-existing deficit, right sided numbne ss, right sided weakness, seizure, speech problems, tingling, tremors, weakness, others Musculoskeletal: denies: back pain, gout, joint pain, joint swelling, muscle pain, muscle stiffness, neck pain, others Integumetry: denies: bruises, change in color, change in hair/nails, dryness, laceration, lesions, lumps, rash, wounds, others Allergic/Immunocompromised: denies: Difficulty Healing, Frequent Infections, Hives, Itching, others Hematologic/Lymphatic: denies: anemia, blood clots, easy bleeding, easy bruising, swollen glands, others Endocrine: denies: excessive hunger, excessive sweating, excessive thirst, excessive urination, flushing, intolerance to cold, intolerance to heat, unexplained weight gain, unexplained weight loss, others Psychiatric: denies: anxiety, bipolar disorder, depression, hopeless, panic disorder, schizophrenia, sleepless, suicidal, others All Other Systems: Reviewed and Negative Physical Exam General Appearance: No Apparent Distress, Normal HEENT: Normal ENT Inspection, PERRL/EOMI, Pharynx Normal, TMs Normal, Other (ERYTHEMA AND SWELLING ON LOWER GUM AROUND TOOTH, DENTAL DECAY AND INFECTION, NO FACIAL SWELLING. ) Neck: Full Range of Motion, Non-Tender, Normal, Normal Inspection Respiratory: Chest Non-Tender, Lungs Clear, No Accessory Muscle Use, No Respiratory Distress, Normal Breath Sounds Cardiovascular: No Edema, No JVD, No Murmur, No Gallop, Normal Peripheral Pulses, Regular Rate/Rhythm Breast Exam: Deferred Gastrointestinal: No Organomegaly, Non Tender, No Pulsatile Mass, Normal Bowel Sounds, Soft Genitalia: Deferred Pelvic: Deferred Rectal: Deferred Extremities: No calf tenderness, Normal capillary refill, Normal inspection, Normal range of motion, Non-tender, No pedal edema Musculoskeletal : Apperance: Normal Neurologic: Alert, aprn II-XII nml as Tested, No Motor Deficits, Normal Affect, Normal Mood, No Sensory Deficits Cerebellar Function: Normal Reflexes: Normal Skin: Dry, Normal Color, Warm Peripheral Pulses: 2+ carotid (R), 2+ carotid (L) Lymphatic: No Adenopathy Was a procedure done? Was a procedure done?: No EENT DIFF Eye: Other Ear: Otitis Externa, Otitis Media, Dental, Pharyngitis X-Ray, Labs, Meds, VS Vital Signs Date Time Temp Pulse Resp B/P (MAP) Pulse Ox O2 Delivery O2 Flow Rate FiO2 02/23/25 12:44 97.5 68 16 117/63 96 97.5 Current Medications Medications (Trade) Dose Ordered Sig/Siva Route Start Time Stop Time Status Last Admin Ceftriaxone Sodium (Rocephin) 1,000 mg ONCE ONCE IM 02/23/25 14:15 02/23/25 14:16 DC 02/23/25 14:23 X-Ray, Labs, Meds, VS Comment EXTERNAL MEDICAL RECORDS REVIEWED: [NONE] INDEPENDENT HISTORIANS: [NONE] SOCIAL DETERMINANTS OF HEALTH: [NONE] LABS ORDERED: NONE REVIEWED AND INTERPRETED RESULTS: NONE IMAGING ORDERED: NONE TREATMENTS ORDERED: ROCEPHIN 1000MG AND TYLENOL 650MG PROCEDURES PERFORMED: NONE CRITICAL CARE TIME: NONE I HAVE DISCUSSED THE PATIENT WITH THE ATTENDING PHYSICIAN, DR. QUINTEROS AND HE AGREE S WITH THE PATIENT'S PLAN OF CARE AND DISPOSITION. BASED ON HISTORY OF PRESENT ILLNESS, AND PHYSICAL EXAM, PATIENT WILL BE DISC HARGED HOME. DISCUSSED PLAN FOR DISCHARGE HOME WITH RX [CLINDAMYCIN HCL 300MG AND ACETAMINOPHEN 650MG]. MEDICATION WARNINGS GIVEN. SHARED DECISION MAKING: DISCUSSED WITH PATIENT THAT THEIR WORKUP WAS NORMAL. PATIENT INSTRUCTED TO FOLLOW UP WITH PRIMARY CARE PROVIDER IN 1-2 DAYS FOR RE- EVALUATION OF SYMPTOMS. PATIENT VERBALIZES UNDERSTANDING TO RETURN TO ED FOR NEW OR WORSENING SYMPTOMS OR IF FOLLOW UP WITH PCP CANNOT BE OBTAINED. PATIENT FEELS COMFORTABLE GOING HOME AT THIS TIME. ALL QUESTIONS ADDRESSED AT TIME OF DISCHARGE. Time of 1ST Reevaluation: 14:21 Reevaluation 1ST: Improved Patient Education/Counseling: Diagnosis, Treatment, Need For Follow Up Family Education/Counseling: Diagnosis, Treatment, No Family Present Medical Screening: No EMC Exist At This Time SEPSIS Sepsis Screen Date sepsis recognized/suspect: Feb 23, 2025 Time Sepsis recognized/suspect: 1247 Recent Procedure: No On Antibiotic Therapy: No Respiratory Rate >20: No Heart Rate >90: No Temp<36 C (96.8 F) or >38.3 C: No SBP <90 or MAP <65 mmHG: No New Acute Mental Status Change: No Is the patient on CPAP, BIPAP,: No Vital Signs Date Time Temp Pulse Resp B/P (MAP) Pulse Ox O2 Delivery O2 Flow Rate FiO2 02/23/25 12:44 97.5 68 16 117/63 96 97.5 Medications Medications Dose Ordered Sig/Siva Route Start Time Stop Time Status Last Admin Dose Admin Ceftriaxone Sodium 1,000 mg ONCE ONCE IM 02/23/25 14:15 02/23/25 14:16 DC 02/23/25 14:23 Departure 1 Departure Time of Disposition: 14:41 Impression: Primary Impression: Dental infection Disposition: HOME / SELF CARE / HOMELESS Condition: Stable Additional Instructions: FOLLOW-UP WITH PCP IN 1 TO 2 DAYS. TAKE MEDICATIONS PRESCRIBED. RETURN TO ED FOR ANY NEW OR WORSENING SYMPTOMS. e-Prescriptions Acetaminophen (Tylenol 8 Hour Arthritis) 650 Mg Tab 650 MG PO TID, #30 TAB Prov: SERGIO VALVERDE 02/23/25 Clindamycin Hcl (Clindamycin Hcl) 300 Mg Cap 1 CAP PO TID, #30 CAP Prov: SERGIO VALVERDE 02/23/25 Discharged With: Self Critical Care Note Critical Care Time?: No Stability Stability form required: No Heart Score Heart Score: Heart Score Response (Comments) Value History N/A 0 EKG N/A 0 Age N/A 0 Risk Factors N/A 0 Troponin N/A 0 Total 0 I personally scribed for SERGIO VALVERDE ([email or web address]) on 02/23/25 at 14:12. Electronically submitted by Sophie Casiano ([email or web address]). I personally scribed for SERGIO VALVERDE ([email or web address]) on 02/23/25 at 14:15. Electronically submitted by Sophie Casiano ([email or web address]). I personally scribed for SERGIO VALVERDE ([email or web address]) on 02/23/25 at 14:17. Electronically submitted by Sophie Casiano ([email or web address]). SERGIO VALVERDE Feb 23, 2025 14:12
[2025-02-23] MEDS: ACETAMINOPHEN 325 MG TAB PO ONE (14:17)
[2025-02-23] MEDS: cefTRIAXone SOD 1,000 MG VL IM ONE (14:23)
[2025-02-23 14:38] VITALS: BP 117/63; PULSE 68; RESP 16; TEMP 97.5; O2SAT 96
== END 2025-02-23 14:39 | disposition home or self-care (01) ==
LOC: ER 12:33
DX: K04.7 Periapical abscess without sinus (principal); J44.89 Other specified chronic obstructive pulmonary disease; M19.90 Unspecified osteoarthritis, unspecified site; Z98.890 Other specified postprocedural states; Z88.1 Allergy status to other antibiotic agents
CPT/HCPCS: 96372; 99283; J0696

== ENCOUNTER 2025-02-26 08:28 | Emergency (ER) | payer MEDICARE, MEDICAID ==
[~2025-02-26] VITALS: Ht 180.3 cm; Wt 57.0 kg
[~2025-02-26 08:28] MED LIST changes: +CLIN1CAP70 PO
--- NOTE | 2025-02-26 09:18 | ED.PDOC ---
History of Present Illness HPI Comments 79-year-old male presents to the ER with prior medical history of TUSCARORA: Surgical history of prostate surgery and the chief complaint of tooth pain. Patient reports the he had teeth removal surgery yesterday at [facility] but did not have any way of transportation to the facility. Patient Has a 10/10 on the tooth pain. Patient notes that he has been very lightheaded and has not been able to ambulate for a long time. Patients Medical Phone number is [phone]. Denies chills, fever, N/V/D, SOB, CP. No other associated symptoms, modifiers, recent injuries or sick contacts present at this time. Chief Complaint: Tooth Pain Time Seen by MD: 09:15 Primary Care Provider: NONE Reviewed Notes: Nurses Notes, Medications, Allergies Allergies: Coded Allergies: Chlorpromazine (Verified Allergy, Unknown, 08/02/16) Ciprofloxacin (Verified Allergy, Unknown, 08/07/16) Home Meds Active Scripts Acetaminophen (Tylenol 8 Hour Arthritis) 650 Mg Tab, 650 MG PO TID, #30 TAB Prov:SERGIO VALVERDE 02/23/25 Clindamycin Hcl (Clindamycin Hcl) 300 Mg Cap, 1 CAP PO TID, #30 CAP Prov:SERGIO VALVERDE 02/23/25 Gabapentin (Once-Daily) (Gabapentin) 300 Mg Tab, 300 MG PO Q6HP PRN, #60 TAB Prov:KYRIE EDWARDS MD 11/12/24 Metronidazole (Flagyl) 500 Mg Tab, 1 TAB PO TID, #20 TAB Prov:SEVERO RUBY MD 11/05/24 Docusate Sodium (Docusate Sodium) 100 Mg Cap, 100 MG PO BID for 7 Days, #14 CAP Prov:KAYLIN BIANCHI MD 08/27/24 Acetaminophen (Tylenol 8 Hour Arthritis) 650 Mg Tab, 650 MG PO TID, #30 TAB Prov:SERGIO VALVERDE 07/02/24 Albuterol Sulfate (VENTOLIN I) 90 Mcg Ih, 90 MCG IN TIDPRN PRN for 30 Days, #1 INH 2 Refills Prov:LISSETTE MADDEN MD 06/21/24 Information Source: Patient Mode of Arrival: Ambulatory Severity: Moderate Timing: Came on: Gradually Duration: Since onset Prehospital treatment: None Past Medical History PAST MEDICAL HISTORY: Arthritis, Asthma, COPD, CVA, High Lipids, HTN Past Medical History (Other): TUSCARORA Surgical History: Hernia Repair Surgical History (Other): Prostate surgery Family History Family History: Reviewed,noncontributory to illness, Unknown Social History Smoker: Unknown Alcohol: Unknown Drugs: Unknown Lives In: Homeless Constitutional: denies: chills, diaphoresis, fatigue, fever, malaise, sweats, weakness, others EENTM: reports: mouth pain, others (Teeth pain); denies: blurred vision, double vision, ear bleeding, ear discharge, ear drainage, ear pain, ear ringing, eye pain, eye redness, hearing loss, mouth swelling, nasal discharge, nose bleeding, nose congestion, nose pain, photophobia, tearing, throat pain, throat swelling, voice changes Respiratory: denies: cough, hemoptysis, orthopnea, SOB at rest, shortness of breath, SOB with excertion, stridor, wheezing, others Cardiovascular: denies: chest pain, dizzy spells, diaphoresis, Dyspnea on exertion, edema, irregular heart beat, left arm pain, lightheadedness, palpitations, PND, syncope, others Gastrointestinal: denies: abdomen distended, abdominal pain, blood streaked bowels, constipated, diarrhea, dysphagia, difficulty swallowing, hematemesis, melena, nausea, poor appetite, poor fluid intake, rectal bleeding, rectal pain, vomiting, others Genitourinary: denies: burning, dysuria, flank pain, frequency, hematuria, incontinence, penile discharge, penile sore, pain, testicle pain, testicle swelling, urgency, others Neurological: denies: dizziness, fainting, headache, left sided numbness, left sided weakness, numbness, paresthesia, pre-existing deficit, right sided numbness, right sided weakness, seizure, speech problems, tingling, tremors, weakness, others Musculoskeletal: denies: back pain, gout, joint pain, joint swelling, muscle pain, muscle stiffness, neck pain, others Integumetry: denies: bruises, change in color, change in hair/nails, dryness, laceration, lesions, lumps, rash, wounds, others Allergic/Immunocompromised: denies: Difficulty Healing, Frequent Infections, Hives, Itching, others Hematologic/Lymphatic: denies: anemia, blood clots, easy bleeding, easy bruising, swollen glands, others Endocrine: denies: excessive hunger, excessive sweating, excessive thirst, excessive urination, flushing, intolerance to cold, intolerance to heat, unexplained weight gain, unexplained weight loss, others Psychiatric: denies: anxiety, bipolar disorder, depression, hopeless, panic disorder, schizophrenia, sleepless, suicidal, others All Other Systems: Reviewed and Negative Physical Exam General Appearance: Moderate Distress, Normal HEENT: Normal ENT Inspection, Pharynx Normal, TMs Normal Neck: Full Range of Motion, Non-Tender, Normal, Normal Inspection Respiratory: Chest Non-Tender, Lungs Clear, No Accessory Muscle Use, No Respiratory Distress, Normal Breath Sounds Cardiovascular: No Edema, No JVD, No Murmur, No Gallop, Normal Peripheral Pulses, Regular Rate/Rhythm Breast Exam: Deferred Gastrointestinal: No Organomegaly, Non Tender, No Pulsatile Mass, Normal Bowel Sounds, Soft Genitalia: Deferred Pelvic: Deferred Rectal: Deferred Extremities: No calf tenderness, Normal capillary refill, Normal inspection, Normal range of motion, Non-tender, No pedal edema Musculoskeletal : Apperance: Normal Neurologic: Alert, electromechanical equipment tester II-XII nml as Tested, No Motor Deficits, Normal Affect, Normal Mood, No Sensory Deficits Cerebellar Function: Normal Reflexes: Normal Skin: Dry, Normal Color, Warm Peripheral Pulses: 3+ Radial (R), 3+ Radial (L) Lymphatic: No Adenopathy Was a procedure done? Was a procedure done?: No Differential Dx Considerations may include: Dental caries Gingivitis X-Ray, Labs, Meds, VS Vital Signs Date Time Temp Pulse Resp B/P (MAP) Pulse Ox O2 Delivery O2 Flow Rate FiO2 02/26/25 08:30 98.1 84 18 121/68 97 98.1 Patient alert. Complaining of tooth pain. Vitals stable. Answering questions. Was given pain medication. No acute process. He was to follow up at [facility] for tooth extraction. Explained to the patient how important it is to follow up. Was told to follow up with his primary care physician. Was told to come back if there is any problem. Time of 1ST Reevaluation: 09:45 Reevaluation 1ST: Unchanged Patient Education/Counseling: Diagnosis, Treatment, Prognosis Family Education/Counseling: No Family Present SEPSIS Sepsis Screen Date sepsis recognized/suspect: Feb 26, 2025 Time Sepsis recognized/suspect: 0830 Recent Procedure: No On Antibiotic Therapy: No Respiratory Rate >20: No Heart Rate >90: Yes Temp<36 C (96.8 F) or >38.3 C: No SBP <90 or MAP <65 mmHG: No New Acute Mental Status Change: No Is the patient on CPAP, BIPAP,: No Physician Orders * Line Therapist Consult (02/26/25 ) Ketorolac Injection (Toradol Injection) (02/26/25 09:30) Vital Signs Date Time Temp Pulse Resp B/P (MAP) Pulse Ox O2 Delivery O2 Flow Rate FiO2 02/26/25 08:30 98.1 84 18 121/68 97 98.1 Departure 1 Departure Time of Disposition: 09:24 Impression: Primary Impression: Dental caries Disposition: HOME / SELF CARE / HOMELESS Condition: Good e-Prescriptions Amoxicillin & Pot Clavulanate (Augmentin) 500 Mg Tab 1 TAB PO BID for 7 Days, #14 TAB Prov: LUIS ALLEN MD 02/26/25 Discharged With: Self Critical Care Note Critical Care Time?: No Stability Stability form required: No Heart Score Heart Score: Heart Score Response (Comments) Value History N/A 0 EKG N/A 0 Age N/A 0 Risk Factors N/A 0 Troponin N/A 0 Total 0 I personally scribed for LUIS ALLEN MD ([email or web address]) on 02/26/25 at 09:18. Electronically submitted by Royal Montez ([email or web address]). LUIS ALLEN MD Feb 26, 2025 09:18
[2025-02-26] MEDS ORDERED: AMOX500T86 PO (09:25)
[2025-02-26] MEDS: KETOROLAC TROMETH 60MG/2ML VIAL IM ONE (10:00)
[2025-02-26 10:12] VITALS: PULSE 84; RESP 16; O2SAT 95
[2025-02-26 10:55] VITALS: BP 137/65; PULSE 72; RESP 18; TEMP 97.4; O2SAT 97
[2025-02-26] MEDS: AMOXICILLIN/CLAVULAN 500 MG TAB PO ONE (11:12)
== END 2025-02-26 11:30 | disposition home or self-care (01) ==
LOC: ER 08:28
DX: K02.9 Dental caries, unspecified (principal); I10 Essential (primary) hypertension; J44.89 Other specified chronic obstructive pulmonary disease; M19.90 Unspecified osteoarthritis, unspecified site; E78.5 Hyperlipidemia, unspecified; F17.200 Nicotine dependence, unspecified, uncomplicated; Z86.73 Personal history of transient ischemic attack (TIA), and cerebral infarction without residual deficits; Z98.890 Other specified postprocedural states; Z88.1 Allergy status to other antibiotic agents
CPT/HCPCS: 96372; 99283; J1885

== ENCOUNTER 2025-02-28 20:05 | Emergency (ER) | payer MEDICARE, MEDICAID ==
[~2025-02-28] VITALS: Ht 180.3 cm; Wt 63.6 kg
[~2025-02-28 20:05] MED LIST changes: +AMOX500T86 PO
[2025-02-28 20:07] VITALS: BP 123/85; PULSE 105; RESP 18; TEMP 98; O2SAT 96
--- NOTE | 2025-02-28 21:10 | DVH ---
CLINICAL HISTORY: ABD PAIN TECHNIQUE: CT of the abdomen and pelvis was performed without IV contrast. This exam was performed ac cording to our departmental dose optimization program. Up-to-date CT equipment and radiation dose red uction techniques are utilized as appropriate. CTDI 5.5 DLP 290.1 COMPARISON: CT CT AB PEL WO CON-NO ORAL OR IV on DOS: 02/13/23, CT ABD PELVIS WO CONTRAST on DOS: , CT ABD PELVIS WO CONTRAST on DOS: 09/18/21, CT ABD PELVIS WO CONTRAST on DOS: 06/20/21 FINDINGS: Evaluation is limited due to imaged radiation secondary to patient motion. Abdomen/Pelvis: The spleen, pancreas, The renal glands, kidneys, liver, gallbladder, prostate gland, and bladder are grossly unremarkable. The abdominal aorta is normal in caliber with mild to moderate aortic atherosclerotic calcifications. There is no free intraperitoneal air or fluid. There is no enlarged abdominal pelvic lymph node. There is no bowel wall thickening or dilatation. There has been right hemicolectomy with 3 anastomosi s. There is a moderate amount of stool in the remnant colon. There is colonic diverticulosis. Other: The imaged lower thorax with aortic valvular and 3 vessel coronary artery calcifications. There is m ild tree-in-bud nodularity within the lingula and right middle lobe. There is mild lingular bronchiec tasis. No acute osseous abnormality is evident. Impression: No acute noncontrast CT abnormality of the abdomen / pelvis. Right hemicolectomy. Colonic diverticulosis. Constipation. Mild appearance right middle lobe and lingular bronchiolitis. Aortic valvular and 3 vessel coronary artery calcifications.
[2025-02-28 21:39] LABS: Hematocrit 38.1 % (41.0-53.0); Hemoglobin 12.7 g/dL (13.5-17.5); Mean Corpuscular Hemoglobin 31.8 pg (28.0-32.0); Mean Corpuscular Volume 95.1 fL (80.0-100.0); Nucleated Red Blood Cells % 0.0 %
[2025-02-28 21:53] LABS: Alanine Aminotransferase 15 U/L (7-40); Alkaline Phosphatase 101 U/L (46-116); Anion Gap 8 (5-15); BUN/Creatinine Ratio 17.6 (10.0-20.0); Blood Urea Nitrogen 19 mg/dL (9-23); Calcium 9.6 mg/dL (8.7-10.4); Carbon Dioxide 27 mmol/L (20-31); Chloride 106 mmol/L (98-107); Glucose 94 mg/dL (74-106); Lipase 41 U/L (12-53); Potassium 4.2 mmol/L (3.5-5.1); Sodium 141 mmol/L (136-145); Total Protein 7.9 g/dL (5.7-8.2)
[2025-02-28 21:54] LABS: Bilirubin, Total 0.4 mg/dL (0.2-1.0)
--- NOTE | 2025-02-28 22:10 | ED.PDOC ---
GI ASSESSMENT HPI Comments HPI: Poor Historian. 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 Patient states that it has been bulging and it gets worse when he walks or with any heavy lifting. Patient was seen for this multiple times most recently yesterday. Patient is here for pain control and re-evaluation. Denies any associated nausea or vomiting or fever or diarrhea. Past Medical History: Past Surgical History: REVIEW OF SYSTEMS: CONSTITUTIONAL: Denies acute: fever, diaphoresis, chills, generalized weakness. HEAD: Denies acute: headache, photophobia Eyes: Denies acute: Double vision, vision loss, eye pain, eye discharge. EARS: Denies acute: tinnitus, hearing loss, ear discharge, ear pain, THROAT: Denies acute: sore throat, swelling, difficulty swallowing , pain with swallowing, change in voice. NECK: Denies acute: neck pain, neck swelling, stiff neck. HEART: Denies acute : chest pain, palpitations, LUNGS: Denies acute: SOB, wheezing, cough, hemoptysis ABDOMEN: Denies acute: Nausea, Vomiting, diarrhea, melena , hematemesis, hematochezia SKIN: Denies acute: rash, redness, lesions, itchiness. EXTREMITIES: Denies acute: calf pain, numbness, tingling, weakness, denies pain in extremity. Denies acute: Low back pain. Neuro: Denies acute: focal neurological deficit, motor or sensory focal neurological deficit, tremors, seizure like activity, confusion, dizziness, change in mental status, loss of bowel or bladder function, cauda equina like symptoms. : Denies acute: dysuria, hematuria, flank pain, increase in urinary frequency. PSYCH: Denies acute: hallucination, suicidal ideation, homicidal ideation. PHYSICAL EXAM: General: ----mild---acute distress, awake and alert. Head: normocephalic, atraumatic. Neck: supple, trachea is midline, no swelling. Throat: Poor dentition. Eyes:, no erythema, no purulent discharge, no proptosis, no icterus. Heart: regular rate, regular rhythm, no significant murmur appreciated. Lungs: no apparent respiratory distress, Able to speak in full sentences. No wheezing, no rhonchi, no crackles. No stridors Clear to auscultation bilaterally. Abdomen: non tender to palpation, non distended, soft, no guarding, no rebound, + bowel sounds. Noted focal area over the right inguinal region consistent with possible hernia. Easily reducible. Focal tenderness to palpation. Neuro: Awake, Alert, oriented to name, self, situation, follows commands GCS=15. Speech is normal. Skin: no petechia, no purpura, no cyanosis, non-pale, not jaundice. Lower extremities: --no - Pitting edema no deformity, no focal swelling, no calf TTP. Makes eye contact. moves all four extremities. Face: no apparent facial droop. Ambulating in the ED independently. ED COURSE: DISCLAIMER: This medical document was created using an electronic medical record system with voice recognition software and computerized dictation system. Although this document has been carefully reviewed, there might still be some phonetic and typographical errors. Occasional wrong-word or "sound-alike" substitutions may have occurred due to the inherent limitations of voice recognition software. These areas are purely typographical due to imperfections of the software programs and do not reflect any compromise in the patient's medical care. Please read the chart carefully and recognize, using context, where these substitutions have occurred. Chief Complaint: Abdominal Pain Time Seen by MD: 21:36 Primary Care Provider: NONE Reviewed Notes: Allergies Allergies: Coded Allergies: Chlorpromazine (Verified Allergy, Unknown, 08/02/16) Ciprofloxacin (Verified Allergy, Unknown, 08/07/16) Home Meds Active Scripts Amoxicillin & Pot Clavulanate (Augmentin) 500 Mg Tab, 1 TAB PO BID for 7 Days, #14 TAB Prov:LUIS ALLEN MD 02/26/25 Acetaminophen (Tylenol 8 Hour Arthritis) 650 Mg Tab, 650 MG PO TID, #30 TAB Prov:SERGIO VALVERDE 02/23/25 Clindamycin Hcl (Clindamycin Hcl) 300 Mg Cap, 1 CAP PO TID, #30 CAP Prov:SERGIO VALVERDE 02/23/25 Gabapentin (Once-Daily) (Gabapentin) 300 Mg Tab, 300 MG PO Q6HP PRN, #60 TAB Prov:KYRIE EDWARDS MD 11/12/24 Metronidazole (Flagyl) 500 Mg Tab, 1 TAB PO TID, #20 TAB Prov:SEVERO RUBY MD 11/05/24 Docusate Sodium (Docusate Sodium) 100 Mg Cap, 100 MG PO BID for 7 Days, #14 CAP Prov:KAYLIN BIANCHI MD 08/27/24 Acetaminophen (Tylenol 8 Hour Arthritis) 650 Mg Tab, 650 MG PO TID, #30 TAB Prov:SERGIO VALVERDE 07/02/24 Albuterol Sulfate (VENTOLIN MDI) 90 Mcg Ih, 90 MCG IN TIDPRN PRN for 30 Days, #1 INH 2 Refills Prov:LISSETTE MADDEN MD 06/21/24 Information Source: Patient Mode of Arrival: Ambulatory Past Medical History PAST MEDICAL HISTORY: Arthritis, Asthma, COPD, CVA, High Lipids, HTN Surgical History: Hernia Repair Family History Family History: Reviewed,noncontributory to illness, Unknown Social History Smoker: Unknown Alcohol: Unknown Drugs: Unknown Lives In: Homeless Was a procedure done? Was a procedure done?: No GI differential Dx Differential Diagnosis: Other (DDX include but not limited to diverticulitis, colitis, gastroenteritis, acute abdomen, SBO, enteritis, constipation, volvulus, appendicitis, Gallbladder disease, choledocolithiasis, ascending cholangitis, pancreatitis, intraAbdominal mass/neoplasm, hepatitis, UTI, pylonephritis, kidney stone, aneurysm, dissection, Inflammatory bowel disease, gastroparesis, ischemic bowel.) X-Ray, Labs, Meds, VS Vital Signs Date Time Temp Pulse Resp B/P (MAP) Pulse Ox O2 Delivery O2 Flow Rate FiO2 02/28/25 20:07 98.0 105 18 123/85 96 98.0 Lab Test 02/28/25 21:04 Range/Units White Blood Count 5.6 4.4-10.8 10^3/uL Red Blood Count 4.00 L 4.5-5.90 10^6/uL Hemoglobin 12.7 L 13.5-17.5 g/dL Hematocrit 38.1 L 41.0-53.0 % Mean Corpuscular Volume 95.1 80.0-100.0 fL Mean Corpuscular Hemoglobin 31.8 28.0-32.0 pg Mean Corpuscular Hemoglobin Concent 33.4 32.0-36.0 g/dL Red Cell Distribution Width 14.1 11.8-14.3 % Platelet Count 312 140-450 10^3/uL Mean Platelet Volume 8.0 6.9-10.8 fL Neutrophils (%) (Auto) 51.6 37.0-80.0 % Lymphocytes (%) (Auto) 34.6 10.0-50.0 % Monocytes (%) (Auto) 10.3 0.0-12.0 % Eosinophils (%) (Auto) 2.9 0.0-7.0 % Basophils (%) (Auto) 0.6 0.0-2.0 % Neutrophils # (Auto) 2.9 1.6-8.6 10 ^3/uL Lymphocytes # (Auto) 1.9 0.4-5.4 10 ^3/uL Monocytes # (Auto) 0.6 0-1.3 10 ^3/uL Eosinophils # (Auto) 0.2 0-0.8 10 ^3/uL Basophils # (Auto) 0 0-0.2 10 ^3/uL Nucleated Red Blood Cells 0.0 % Sodium Level 141 136-145 mmol/L Potassium Level 4.2 3.5-5.1 mmol/L Chloride Level 106 98-107 mmol/L Carbon Dioxide Level 27 20-31 mmol/L Anion Gap 8 5-15 Blood Urea Nitrogen 19 9-23 mg/dL Creatinine 1.08 0.700-1.30 mg/dL Glomerular Filtration Rate Calc 69 >90 mL/min BUN/Creatinine Ratio 17.6 10.0-20.0 Serum Glucose 94 74-106 mg/dL Lactic Acid Level 1.3 0.4-2.0 mmol/L Calcium Level 9.6 8.7-10.4 mg/dL Total Bilirubin 0.4 0.2-1.0 mg/dL Aspartate Amino Transferase (AST) 28 13-40 U/L Alanine Aminotransferase (ALT) 15 7-40 U/L Alkaline Phosphatase 101 46-116 U/L Total Protein 7.9 5.7-8.2 g/dL Albumin 4.8 3.2-4.8 g/dL Lipase 41 12-53 U/L [facility] [id number] [facility] [address] Ph: [phone] DIAGNOSTIC IMAGING Diagnostic Imaging Report : [id number] Signed PATIENT: SUNNI VALLE HAMANUELAACCT: [id number] UNIT: [id number] : 1945 LOC: ER ROOM / BED: / AGE / SEX: 79 / M ADM STATUS: REG ER SERVICE 22 ORDERING PHYSICIAN: YAQUELIN MARCUM DO PROCEDURE(s): ABPL - CT AB PEL WO CON-NO ORAL OR IV REASON: ABD PAIN ORDER NUMBER(s): [id number], ACCESSION NUMBER(s): [id number] CLINICAL HISTORY: ABD PAIN TECHNIQUE: CT of the abdomen and pelvis was performed without IV contrast. This exam was performed according to our departmental dose optimization program. Up-to-date CT equipment and radiation dose reduction techniques are utilized as appropriate. CTDI 5.5 DLP 290.1 COMPARISON: CT CT AB PEL WO CON-NO ORAL OR IV on DOS: 02/13/23, CT ABD PELVIS WO CONTRAST on DOS: 09/25/21, CT ABD PELVIS WO CONTRAST on DOS: 09/18/21, CT ABD PELVIS WO CONTRAST on DOS: 06/20/21 FINDINGS: Evaluation is limited due to imaged radiation secondary to patient motion. Abdomen/Pelvis: The spleen, pancreas, The renal glands, kidneys, liver, gallbladder, prostate gland, and bladder are grossly unremarkable. The abdominal aorta is normal in caliber with mild to moderate aortic atherosclerotic calcifications. There is no free intraperitoneal air or fluid. There is no enlarged abdominal pelvic lymph node. There is no bowel wall thickening or dilatation. There has been right hemicolectomy with 3 anastomosis. There is a moderate amount of stool in the remnant colon. There is colonic diverticulosis. Other: The imaged lower thorax with aortic valvular and 3 vessel coronary artery calcifications. There is mild tree-in-bud nodularity within the lingula and right middle lobe. There is mild lingular bronchiectasis. No acute osseous abnormality is evident. Impression: No acute noncontrast CT abnormality of the abdomen / pelvis. Right hemicolectomy. Colonic diverticulosis. Constipation. Mild appearance right middle lobe and lingular bronchiolitis. Aortic valvular and 3 vessel coronary artery calcifications. ATED BY: FAISAL ORTEGA MD DICTATED DATE/TIME: 02/28/252107 SIGNED BY: FAISAL ORTEGA MD SIGNED DATE/TIME: 02/28/252107 CC: Time of 1ST Reevaluation: 22:08 Reevaluation 1ST: Unchanged Patient Education/Counseling: Diagnosis, Treatment Family Education/Counseling: Other Comments MDM: patient presented with the above HPI.---abdominal pain---workup was initiated. patient was found with the above mentioned diagnosis. the following medications were ordered: please refer to order lists of meds and tests obtained by myself Dr. Marcum. Patient ED course and VS have been stabilized. Patient has been reassessed in the ED and remained in a stable condition. Pertinent incidental findings were discussed with the patient and/or family. Patient/family voices understanding and is agreeable with plan. Patient has been observed in the ED adequate length of time to insure improvement/stability. Escalation of care considered: Consideration of escalation to observation or admission The abdominal wall hernia is easily reducible. Patient was DISCHARGED home in a stable condition. Patient was instructed to follow up with General surgery for definitive treatment. All the reports of any imaging studies that were ordered by myself were reviewed by myself. SEPSIS Sepsis Screen Date sepsis recognized/suspect: Feb 28, 2025 Time Sepsis recognized/suspect: 2006 Recent Procedure: No On Antibiotic Therapy: No Respiratory Rate >20: No Heart Rate >90: Yes Temp<36 C (96.8 F) or >38.3 C: No SBP <90 or MAP <65 mmHG: No New Acute Mental Status Change: No Is the patient on CPAP, BIPAP,: No Physician Orders Ct Ab Pel Wo Con-No Oral Or Iv (02/28/25 20:23) Division Operations Specialist (02/28/25 ) Vital Signs Date Time Temp Pulse Resp B/P (MAP) Pulse Ox O2 Delivery O2 Flow Rate FiO2 02/28/25 20:07 98.0 105 18 123/85 96 98.0 Laboratory Tests Test 02/28/25 21:04 Lactic Acid Level 1.3 mmol/L (0.4-2.0) White Blood Count 5.6 10^3/uL (4.4-10.8) Departure 1 Departure Time of Disposition: 22:08 Impression: Primary Impression: Abdominal hernia Additional Impression: Constipation Disposition: 01 HOME / SELF CARE / HOMELESS Condition: Stable Additional Instructions: Additional instructions: Please read all instructions provided in this packet carefully. You MUST follow-up with your primary care/family doctor in 1 to 2 days. If you are unable to see your primary care/family doctor, please return to our emergency room for re-assessment and re-evaluation in 1 to 2 days. Return to the emergency room here in our facility or to the nearest ER [facility] if your symptoms change or worsen. CONSULTATIONS: you MUST Follow-up for consultation as soon as possible with: -general surgery in 1-2 days. Please call for appointment. You MUST call the consultants office yourself to make an appointment. You may need to arrange that through your insurance and/or your primary/family doctor. If you are unable to see the client service consultant in 1 to 2 days, you must return to our emergency room (or any other ER of your choice) for re-assessment and re- evaluation. Adequate fluid hydration. Although you have been discharged from the Emergency Department, this does not mean that you have a "clean bill of health". No definitive diagnosis for your symptoms has been made today. It is possible that you are in the process of developing a serious illness. This is why you must return to the ED without fail if any new or worsening symptoms develop. Below is a copy of your radiological report for follow up: [place] [address] Ph: [phone] DIAGNOSTIC IMAGING Diagnostic Imaging Report : [id number] Signed PATIENT: SUNNI VALLE ACCT: [id number] UNIT: [id number] : 1945 LOC: ER ROOM / BED: / AGE / SEX: 79 / M ADM STATUS: REG ER SERVICE 22 ORDERING PHYSICIAN: YAQUELIN MARCUM DO PROCEDURE(s): ABPL - CT AB PEL WO CON-NO ORAL OR IV REASON: ABD PAIN ORDER NUMBER(s): [id number], ACCESSION NUMBER(s): [id number] CLINICAL HISTORY: ABD PAIN TECHNIQUE: CT of the abdomen and pelvis was performed without IV contrast. This exam was performed according to our departmental dose optimization program. Up-to-date CT equipment and radiation dose reduction techniques are utilized as appropriate. CTDI 5.5 DLP 290.1 COMPARISON: CT CT AB PEL WO CON-NO ORAL OR IV on DOS: 02/13/23, CT ABD PELVIS WO CONTRAST on DOS: 09/25/21, CT ABD PELVIS WO CONTRAST on DOS: 09/18/21, CT ABD PELVIS WO CONTRAST on DOS: 06/20/21 FINDINGS: Evaluation is limited due to imaged radiation secondary to patient motion. Abdomen/Pelvis: The spleen, pancreas, The renal glands, kidneys, liver, gallbladder, prostate gland, and bladder are grossly unremarkable. The abdominal aorta is normal in caliber with mild to moderate aortic atherosclerotic calcifications. There is no free intraperitoneal air or fluid. There is no enlarged abdominal pelvic lymph node. There is no bowel wall thickening or dilatation. There has been right hemicolectomy with 3 anastomosis. There is a moderate amount of stool in the remnant colon. There is colonic diverticulosis. Other: The imaged lower thorax with aortic valvular and 3 vessel coronary artery calcifications. There is mild tree-in-bud nodularity within the lingula and right middle lobe. There is mild lingular bronchiectasis. No acute osseous abnormality is evident. Impression: No acute noncontrast CT abnormality of the abdomen / pelvis. Right hemicolectomy. Colonic diverticulosis. Constipation. Mild appearance right middle lobe and lingular bronchiolitis. Aortic valvular and 3 vessel coronary artery calcifications. ATED BY: FAISAL ORTEGA MD DICTATED DATE/TIME: 02/28/252107 SIGNED BY: FAISAL ORTEGA MD SIGNED DATE/TIME: 02/28/252107 CC: Discharged With: Self Critical Care Note Critical Care Time?: No YAQUELIN MARCUM DO Feb 28, 2025 22:10
[2025-02-28] MEDS ORDERED: HYDROcodone-ACET 5/325MG TAB PO ONE (22:15)
[2025-02-28 22:25] LABS: Albumin 4.8 g/dL (3.2-4.8)
== END 2025-02-28 22:21 | disposition left against medical advice (07) ==
LOC: ER 20:18
DX: K46.9 Unspecified abdominal hernia without obstruction or gangrene (principal); K59.00 Constipation, unspecified; I10 Essential (primary) hypertension; E78.5 Hyperlipidemia, unspecified; M19.90 Unspecified osteoarthritis, unspecified site; J44.9 Chronic obstructive pulmonary disease, unspecified; F17.200 Nicotine dependence, unspecified, uncomplicated; Z86.73 Personal history of transient ischemic attack (TIA), and cerebral infarction without residual deficits; Z88.1 Allergy status to other antibiotic agents; Z98.890 Other specified postprocedural states
CPT/HCPCS: 36415; 74176; 80053; 83605; 83690; 85025

== ENCOUNTER 2025-04-27 15:20 | Emergency (ER) | payer MEDICARE, MEDICAID ==
[~2025-04-27] VITALS: Ht 180.3 cm; Wt 61.8 kg
[2025-04-27 15:23] VITALS: BP 116/81; PULSE 98; RESP 19; TEMP 97.7; O2SAT 97
--- NOTE | 2025-04-27 15:56 | ED.PDOC ---
History of Present Illness HPI Comments 79M presents to the ER w/ prior MHx of Arthritis, COPD, Asthma, CVA x4, [place] x2, High Lipids: SHx of "took out 9 inches of intestines 2yrs ago" and the c/c of ABD pain. Pt reports on having 10/10 lower ABD pain which started yesterday, and is associated w/ a fever/MARSHALL. Denies any other symptoms at this time. Denies chills, fever, N/V/D, SOB, CP. Denies any other associated symptom's, modifiers, or recent injuries or sick contact at this time. Chief Complaint: Abdominal Pain Time Seen by MD: 15:50 Primary Care Provider: NONE Reviewed Notes: Nurses Notes, Medications, Allergies Allergies: Coded Allergies: Chlorpromazine (Verified Allergy, Unknown, 08/02/16) Ciprofloxacin (Verified Allergy, Unknown, 08/07/16) Home Meds Active Scripts Amoxicillin & Pot Clavulanate (Augmentin) 500 Mg Tab, 1 TAB PO BID for 7 Days, #14 TAB Prov:LUIS ALLEN MD 02/26/25 Acetaminophen (Tylenol 8 Hour Arthritis) 650 Mg Tab, 650 MG PO TID, #30 TAB Prov:SERGIO VALVERDE 02/23/25 Clindamycin Hcl (Clindamycin Hcl) 300 Mg Cap, 1 CAP PO TID, #30 CAP Prov:SERGIO VALVERDE 02/23/25 Gabapentin (Once-Daily) (Gabapentin) 300 Mg Tab, 300 MG PO Q6HP PRN, #60 TAB Prov:KYRIE EDWARDS MD 11/12/24 Metronidazole (Flagyl) 500 Mg Tab, 1 TAB PO TID, #20 TAB Prov:SEVERO RUBY MD 11/05/24 Docusate Sodium (Docusate Sodium) 100 Mg Cap, 100 MG PO BID for 7 Days, #14 CAP Prov:KAYLIN BIANCHI MD 08/27/24 Acetaminophen (Tylenol 8 Hour Arthritis) 650 Mg Tab, 650 MG PO TID, #30 TAB Prov:SERGIO VALVERDE 07/02/24 Albuterol Sulfate (VENTOLIN MDI) 90 Mcg Ih, 90 MCG IN TIDPRN PRN for 30 Days, #1 INH 2 Refills Prov:LISSETTE MADDEN MD 06/21/24 Information Source: Patient Mode of Arrival: Ambulatory Severity: Moderate Timing: Hours Duration: Since onset, Hours Prehospital treatment: None Past Medical History PAST MEDICAL HISTORY: Arthritis, Asthma, COPD, CVA, High Lipids, TX Surgical History: Hernia Repair Surgical History (Other): "took out 9 inches of intestines 2 years ago". Family History Family History: Reviewed,noncontributory to illness, Unknown Social History Smoker: Unknown Alcohol: Unknown Drugs: Unknown Lives In: Homeless Constitutional: reports: fever; denies: chills, diaphoresis, fatigue, malaise, sweats, weakness, others EENTM: denies: blurred vision, double vision, ear bleeding, ear discharge, ear drainage, ear pain, ear ringing, eye pain, eye redness, hearing loss, mouth pain, mouth swelling, nasal discharge, nose bleeding, nose congestion, nose pain, photophobia, tearing, throat pain, throat swelling, voice changes, others Respiratory: denies: cough, hemoptysis, orthopnea, SOB at rest, shortness of breath, SOB with excertion, stridor, wheezing, others Cardiovascular: denies: chest pain, dizzy spells, diaphoresis, Dyspnea on exertion, edema, irregular heart beat, left arm pain, lightheadedness, palpitations, PND, syncope, others Gastrointestinal: reports: abdominal pain; denies: abdomen distended, blood streaked bowels, constipated, diarrhea, dysphagia, difficulty swallowing, hematemesis, melena, nausea, poor appetite, poor fluid intake, rectal bleeding, rectal pain, vomiting, others Genitourinary: denies: burning, dysuria, flank pain, frequency, hematuria, incontinence, penile discharge, penile sore, pain, testicle pain, testicle swelling, urgency, others Neurological: reports: headache; denies: dizziness, fainting, left sided numbness, left sided weakness, numbness, paresthesia, pre-existing deficit, right sided numbness, right sided weakness, seizure, speech problems, tingling, tremors, weakness, others Musculoskeletal: denies: back pain, gout, joint pain, joint swelling, muscle pain, muscle stiffness, neck pain, others Integumetry: denies: bruises, change in color, change in hair/nails, dryness, laceration, lesions, lumps, rash, wounds, others Allergic/Immunocompromised: denies: Difficulty Healing, Frequent Infections, Hives, Itching, others Hematologic/Lymphatic: denies: anemia, blood clots, easy bleeding, easy bruising, swollen glands, others Endocrine: denies: excessive hunger, excessive sweating, excessive thirst, excessive urination, flushing, intolerance to cold, intolerance to heat, unexplained weight gain, unexplained weight loss, others Psychiatric: denies: anxiety, bipolar disorder, depression, hopeless, panic disorder, schizophrenia, sleepless, suicidal, others All Other Systems: Reviewed and Negative Physical Exam General Appearance: Moderate Distress HEENT: Normal ENT Inspection, Pharynx Normal, TMs Normal Neck: Full Range of Motion, Non-Tender, Normal, Normal Inspection Respiratory: Chest Non-Tender, Lungs Clear, No Accessory Muscle Use, No Respiratory Distress, Normal Breath Sounds Cardiovascular: No Edema, No JVD, No Murmur, No Gallop, Normal Peripheral Pulses, Regular Rate/Rhythm Breast Exam: Deferred Gastrointestinal: Diffuse, No Organomegaly, No Pulsatile Mass, Normal Bowel Sounds, Soft, Tenderness Genitalia: Deferred Pelvic: Deferred Rectal: Deferred Extremities: No calf tenderness, Normal capillary refill, Normal inspection, Normal range of motion, Non-tender, No pedal edema Musculoskeletal : Apperance: Normal Neurologic: Alert, haul truck driver II-XII nml as Tested, Motor Weakness, Normal Affect, Normal Mood, No Sensory Deficits Cerebellar Function: Normal Reflexes: Normal Skin: Dry, Normal Color, Warm Lymphatic: No Adenopathy Was a procedure done? Was a procedure done?: No Differential Dx Considerations may include: Intractable abdominal pain, appendicitis, fecal impaction X-Ray, Labs, Meds, VS Vital Signs Date Time Temp Pulse Resp B/P (MAP) Pulse Ox O2 Delivery O2 Flow Rate FiO2 04/27/25 15:23 97.7 98 19 116/81 97 97.7 Lab Test 04/27/25 15:56 Range/Units White Blood Count 7.1 4.4-10.8 10^3/uL Red Blood Count 4.00 L 4.5-5.90 10^6/uL Hemoglobin 12.6 L 13.5-17.5 g/dL Hematocrit 38.1 L 41.0-53.0 % Mean Corpuscular Volume 95.3 80.0-100.0 fL Mean Corpuscular Hemoglobin 31.6 28.0-32.0 pg Mean Corpuscular Hemoglobin Concent 33.2 32.0-36.0 g/dL Red Cell Distribution Width 13.7 11.8-14.3 % Platelet Count 259 140-450 10^3/uL Mean Platelet Volume 7.9 6.9-10.8 fL Neutrophils (%) (Auto) 54.9 37.0-80.0 % Lymphocytes (%) (Auto) 32.3 10.0-50.0 % Monocytes (%) (Auto) 10.5 0.0-12.0 % Eosinophils (%) (Auto) 1.9 0.0-7.0 % Basophils (%) (Auto) 0.4 0.0-2.0 % Neutrophils # (Auto) 3.9 1.6-8.6 10 ^3/uL Lymphocytes # (Auto) 2.3 0.4-5.4 10 ^3/uL Monocytes # (Auto) 0.7 0-1.3 10 ^3/uL Eosinophils # (Auto) 0.1 0-0.8 10 ^3/uL Basophils # (Auto) 0 0-0.2 10 ^3/uL Nucleated Red Blood Cells 0.0 % Sodium Level 141 136-145 mmol/L Potassium Level 4.3 3.5-5.1 mmol/L Chloride Level 103 98-107 mmol/L Carbon Dioxide Level 30 20-31 mmol/L Anion Gap 8 5-15 Blood Urea Nitrogen 13 9-23 mg/dL Creatinine 1.30 0.700-1.30 mg/dL Glomerular Filtration Rate Calc 55 >90 mL/min BUN/Creatinine Ratio 10.0 10.0-20.0 Serum Glucose 112 H 74-106 mg/dL Calcium Level 9.8 8.7-10.4 mg/dL Lipase 38 12-53 U/L The patient is CBC is within normal limits The chemistry panel is within normal limits The lipase is within normal limits The patient's CAT scan of the abdomen and pelvis shows: IMPRESSION: Limited evaluation without contrast. Large volume stool within the colon. Postsurgical changes transverse colon. Fecal like contents within the small bowel which can be seen with ileus, hypomotility, bowel obstruction. Atherosclerotic disease. Gastric distention. Nonobstructing bilateral renal calculi. At this time, the patient is being admitted with a diagnosis of abdominal pain unknown etiology Images Reviewed?: Images reviewed and evaluated by me Time of 1ST Reevaluation: 16:20 Reevaluation 1ST: Unchanged Patient Education/Counseling: Diagnosis, Treatment, Prognosis Family Education/Counseling: No Family Present SEPSIS Sepsis Screen Date sepsis recognized/suspect: Apr 27, 2025 Time Sepsis recognized/suspect: 1526 Recent Procedure: No On Antibiotic Therapy: No Respiratory Rate >20: No Heart Rate >90: No Temp<36 C (96.8 F) or >38.3 C: No SBP <90 or MAP <65 mmHG: No New Acute Mental Status Change: No Is the patient on CPAP, BIPAP,: No Physician Orders Urinalysis (04/27/25 15:44) Ct Ab Pel Wo Con-No Oral Or Iv (04/27/25 15:44) Heplock Iv (04/27/25 15:44) Vital Signs Date Time Temp Pulse Resp B/P (MAP) Pulse Ox O2 Delivery O2 Flow Rate FiO2 04/27/25 15:23 97.7 98 19 116/81 97 97.7 Laboratory Tests Test 04/27/25 15:56 White Blood Count 7.1 10^3/uL (4.4-10.8) Departure 1 Departure Time of Disposition: 17:29 Impression: Primary Impression: Fecal impaction Additional Impression: Intractable abdominal pain Disposition: 09 ADMITTED INPATIENT Admit to: Med Surg Condition: Fair Critical Care Note Critical Care Time?: No Stability Stability form required: Yes Unstable for transfer: ED Physician Assesment (Clinical assesment) Heart Score Heart Score: Heart Score Response (Comments) Value History N/A 0 EKG N/A 0 Age N/A 0 Risk Factors N/A 0 Troponin N/A 0 Total 0 I personally scribed for ASHLY JACOBS MD ([email or web address]) on 04/27/25 at 15:55. Electronically submitted by Royal Montez ([email or web address]). ASHLY JACOBS MD Apr 27, 2025 15:55
[2025-04-27 16:11] LABS: Hematocrit 38.1 % (41.0-53.0); Hemoglobin 12.6 g/dL (13.5-17.5); Mean Corpuscular Hemoglobin 31.6 pg (28.0-32.0); Mean Corpuscular Volume 95.3 fL (80.0-100.0); Nucleated Red Blood Cells % 0.0 %
[2025-04-27 16:16] LABS: Chloride 103 mmol/L (98-107); Potassium 4.3 mmol/L (3.5-5.1); Sodium 141 mmol/L (136-145)
[2025-04-27 16:17] LABS: Anion Gap 8 (5-15); Carbon Dioxide 30 mmol/L (20-31)
[2025-04-27 16:18] LABS: Calcium 9.8 mg/dL (8.7-10.4)
[2025-04-27 16:23] LABS: BUN/Creatinine Ratio 10.0 (10.0-20.0); Blood Urea Nitrogen 13 mg/dL (9-23); Lipase 38 U/L (12-53)
[2025-04-27 16:29] LABS: Glucose 112 mg/dL (74-106)
--- NOTE | 2025-04-27 16:50 | DVH ---
Indication: pain Technique: CT axial images of the abdomen and pelvis are obtained without contrast. Coronal and sagittal reformats were obtained. Radiation Dose Information: CTDI volume is 6.48 mGy. Dose-length product is 303.6 mGy*cm Comparison: CT CT AB PEL WO CON-NO ORAL OR IV on DOS: 02/28/25, FINDINGS: There is limited interpretation of the abdomen and pelvis without administration of intravenous contrast. Pulmonary emphysematous changes. Adrenal glands, spleen, pancreas unremarkable in shape. Liver unremarkable in shape. Gallbladder contracted /not well visualized. Kidneys demonstrate no hydronephrosis. Nonobstructing right renal calculi up to 2 mm. Nonobstructing left renal calculi up to 2 mm Gastric distention. Small bowel loops moderately distended. Fecal like contents in the small bowel. Colonic diverticular disease. Large volume stool in the colon. Postsurgical changes in the region of the transverse colon. Appendix is not well visualized. No secondary signs for appendicitis. Abdominal aortic atherosclerotic disease and tortuosity. Bladder partially distended. No free pelvic fluid. No inguinal lymphadenopathy. Moderate bilateral sacroiliac degenerative joint disease. Moderate to severe lumbar degenerative disc disease. IMPRESSION: Limited evaluation without contrast. Large volume stool within the colon. Postsurgical changes transverse colon. Fecal like contents within the small bowel which can be seen with ileus, hypomotility, bowel obstruction. Atherosclerotic disease. Gastric distention. Nonobstructing bilateral renal calculi. Other findings as described.
== END 2025-04-27 22:37 | disposition left against medical advice (07) ==
LOC: ER 15:20
DX: K56.41 Fecal impaction (principal); R10.9 Unspecified abdominal pain; M19.90 Unspecified osteoarthritis, unspecified site; F17.200 Nicotine dependence, unspecified, uncomplicated; J44.89 Other specified chronic obstructive pulmonary disease; Z59.00 Homelessness unspecified; Z86.73 Personal history of transient ischemic attack (TIA), and cerebral infarction without residual deficits; Z88.1 Allergy status to other antibiotic agents; Z98.890 Other specified postprocedural states
CPT/HCPCS: 36415; 74176; 80048; 83690; 85025; 96374; 96375

== ENCOUNTER 2025-05-09 16:27 | Emergency (ER) | payer MEDICARE, MEDICAID ==
[~2025-05-09] VITALS: Ht 180.3 cm; Wt 61.1 kg
[2025-05-09 16:31] VITALS: BP 102/74; RESP 16; TEMP 97.6; O2SAT 98
--- NOTE | 2025-05-09 16:53 | ECG ---
[facility] Test Date: 2025-05-09 Test Time: 16:41:14 Pat Name: SUNNI VALLE Department: ED Room: Gender: M Buccaro: KERRY : 1945 Requested By: FEDE GARCIA Order Number: [id number] Reading MD: Corwin Lopes Measurements Intervals [place] Rate: 84 P: 78 KS: 160 QRS: 82 QRSD: 83 T: -46 QT: 357 QTc: 422 Interpretive Statements Unknown rhythm, irregular rate Borderline right axis deviation Borderline repolarization abnormality Electronically Signed On 05-10-2025 17:58:48 PST by Corwin Lopes Please click the below link to view image of tracing.
--- NOTE | 2025-05-09 17:23 | ED.PDOC ---
History of Present Illness HPI Comments Patient is an 79-year-old male with past medical history of CVA x4?, CO in 2014 unsure whether intervention done or not, COPD on intermittent home oxygen, dyslipidemia, DVT? , constipation, bilateral cataracts, who comes in after having 2 episodes of syncope. According to the patient, this morning he was at [employer] when he started feeling pins and needle sensation, numbness in left lower extremity which slowly spread to involve left upper extremity and face in ultimately led to him passing out. 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 Patient notes he had similar symptoms in 2013 when he was diagnosed with CVA. On review of systems patient is complaining of chills, shortness of breath, vomiting last night, dysuria, urinary frequency and dyspnea. Patient is AO x3, however, somewhat of a poor historian. Chief Complaint: Syncope Time Seen by MD: 17:10 Primary Care Provider: NONE Home Meds Active Scripts Amoxicillin & Pot Clavulanate (Augmentin) 500 Mg Tab, 1 TAB PO BID for 7 Days, #14 TAB Prov:LUIS ALLEN MD 02/26/25 Acetaminophen (Tylenol 8 Hour Arthritis) 650 Mg Tab, 650 MG PO TID, #30 TAB Prov:SERGIO VALVERDE 02/23/25 Clindamycin Hcl (Clindamycin Hcl) 300 Mg Cap, 1 CAP PO TID, #30 CAP Prov:SERGIO VALVERDE 02/23/25 Gabapentin (Once-Daily) (Gabapentin) 300 Mg Tab, 300 MG PO Q6HP PRN, #60 TAB Prov:KYRIE EDWARDS MD 11/12/24 Metronidazole (Flagyl) 500 Mg Tab, 1 TAB PO TID, #20 TAB Prov:SEVERO RUBY MD 11/05/24 Docusate Sodium (Docusate Sodium) 100 Mg Cap, 100 MG PO BID for 7 Days, #14 CAP Prov:KAYLIN BIANCHI MD 08/27/24 Acetaminophen (Tylenol 8 Hour Arthritis) 650 Mg Tab, 650 MG PO TID, #30 TAB Prov:SERGIO VALVERDE 07/02/24 Albuterol Sulfate (VENTOLIN MDI) 90 Mcg Ih, 90 MCG IN TIDPRN PRN for 30 Days, #1 INH 2 Refills Prov:LISSETTE MADDEN MD 06/21/24 Mode of Arrival: Ambulatory Past Medical History PAST MEDICAL HISTORY: Arthritis, Asthma, COPD, CVA, High Lipids, CO Past Medical History (Contd): CVA x4?, CO in 2014 unsure whether intervention done or not, COPD on intermittent home oxygen, dyslipidemia, DVT? , constipation, bilateral cataracts Surgical History: Hernia Repair Family History Family History: Reviewed,noncontributory to illness, Unknown Social History Smoker: Non-Smoker, Unknown Alcohol: Denies ETOH Use, Unknown Drugs: Denies Drug Use, Unknown Lives In: Homeless Constitutional: reports: chills; denies: diaphoresis, fatigue, fever, malaise, sweats, weakness, others EENTM: denies: blurred vision, double vision, ear bleeding, ear discharge, ear drainage, ear pain, ear ringing, eye pain, eye redness, hearing loss, mouth pain, mouth swelling, nasal discharge, nose bleeding, nose congestion, nose pain, photophobia, tearing, throat pain, throat swelling, voice changes, others Respiratory: reports: SOB with excertion; denies: cough, hemoptysis, orthopnea, SOB at rest, shortness of breath, stridor, wheezing, others Cardiovascular: denies: chest pain, dizzy spells, diaphoresis, Dyspnea on exertion, edema, irregular heart beat, left arm pain, lightheadedness, palpitations, PND, syncope, others Gastrointestinal: reports: vomiting; denies: abdomen distended, abdominal pain, blood streaked bowels, constipated, diarrhea, dysphagia, difficulty swallowing, hematemesis, melena, nausea, poor appetite, poor fluid intake, rectal bleeding, rectal pain, others Genitourinary: reports: dysuria, frequency; denies: burning, flank pain, hematuria, incontinence, penile discharge, penile sore, pain, testicle pain, testicle swelling, urgency, others Neurological: denies: dizziness, fainting, headache, left sided numbness, left sided weakness, numbness, paresthesia, pre-existing deficit, right sided numbness, right sided weakness, seizure, speech problems, tingling, tremors, weakness, others Musculoskeletal: denies: back pain, gout, joint pain, joint swelling, muscle pain, muscle stiffness, neck pain, others Integumetry: denies: bruises, change in color, change in hair/nails, dryness, laceration, lesions, lumps, rash, wounds, others Allergic/Immunocompromised: denies: Difficulty Healing, Frequent Infections, Hives, Itching, others Hematologic/Lymphatic: denies: anemia, blood clots, easy bleeding, easy bruising, swollen glands, others Endocrine: denies: excessive hunger, excessive sweating, excessive thirst, excessive urination, flushing, intolerance to cold, intolerance to heat, unexplained weight gain, unexplained weight loss, others Psychiatric: denies: anxiety, bipolar disorder, depression, hopeless, panic disorder, schizophrenia, sleepless, suicidal, others Physical Exam General Appearance: Cachectic, None, Thin HEENT: PERRL/EOMI Neck: Non-Tender, Normal, Normal Inspection Respiratory: Lungs Clear, No Accessory Muscle Use, No Respiratory Distress Cardiovascular: Normal Peripheral Pulses, Regular Rate/Rhythm Breast Exam: Deferred Gastrointestinal: Non Tender, No Pulsatile Mass, Normal Bowel Sounds Genitalia: Deferred Pelvic: Deferred Rectal: Rectal Exam not done Extremities: No calf tenderness, No pedal edema Neurologic: Alert, Normal Affect, Normal Mood, No Sensory Deficits Cerebellar Function: NOT DONE Reflexes: NOT DONE Skin: Dry, Normal Color, Pallor Lymphatic: NOT DONE Was a procedure done? Was a procedure done?: No EKG EKG : Pulse Rate (adult): 84 [place]: RAD Cardiac Rhythm: Afib Block: None Hypertrophy: None ST: Normal Differential Dx Considerations may include: Syncope CVA CO PE X-Ray, Labs, Meds, VS Vital Signs Date Time Temp Pulse Resp B/P (MAP) Pulse Ox O2 Delivery O2 Flow Rate FiO2 05/09/25 16:41 84 05/09/25 16:31 97.6 85 16 102/74 98 97.6 Lab Test 05/09/25 18:22 05/09/25 17:36 05/09/25 16:57 Range/Units Troponin I High Sensitivity 7 6 </=54 ng/L White Blood Count 6.7 4.4-10.8 10^3/uL Red Blood Count 4.17 L 4.5-5.90 10^6/uL Hemoglobin 13.3 L 13.5-17.5 g/dL Hematocrit 39.7 L 41.0-53.0 % Mean Corpuscular Volume 95.2 80.0-100.0 fL Mean Corpuscular Hemoglobin 31.8 28.0-32.0 pg Mean Corpuscular Hemoglobin Concent 33.4 32.0-36.0 g/dL Red Cell Distribution Width 13.5 11.8-14.3 % Platelet Count 254 140-450 10^3/uL Mean Platelet Volume 8.2 6.9-10.8 fL Neutrophils (%) (Auto) 57.6 37.0-80.0 % Lymphocytes (%) (Auto) 30.5 10.0-50.0 % Monocytes (%) (Auto) 9.6 0.0-12.0 % Eosinophils (%) (Auto) 1.5 0.0-7.0 % Basophils (%) (Auto) 0.8 0.0-2.0 % Neutrophils # (Auto) 3.9 1.6-8.6 10 ^3/uL Lymphocytes # (Auto) 2.0 0.4-5.4 10 ^3/uL Monocytes # (Auto) 0.6 0-1.3 10 ^3/uL Eosinophils # (Auto) 0.1 0-0.8 10 ^3/uL Basophils # (Auto) 0.1 0-0.2 10 ^3/uL Nucleated Red Blood Cells 0.0 % Prothrombin Time 10.6 9.3-11.8 sec Prothrombin Time INR 1.00 0.9-1.15 Activated Partial Thromboplast Time 29.2 24.5-34.5 SEC Sodium Level 139 136-145 mmol/L Potassium Level 4.8 3.5-5.1 mmol/L Chloride Level 101 98-107 mmol/L Carbon Dioxide Level 27 20-31 mmol/L Anion Gap 11 5-15 Blood Urea Nitrogen 18 9-23 mg/dL Creatinine 1.22 0.700-1.30 mg/dL Glomerular Filtration Rate Calc 60 >90 mL/min BUN/Creatinine Ratio 14.8 10.0-20.0 Serum Glucose 91 74-106 mg/dL Calcium Level 10.0 8.7-10.4 mg/dL Total Bilirubin 0.9 0.2-1.0 mg/dL Aspartate Amino Transferase (AST) 22 13-40 U/L Alanine Aminotransferase (ALT) 13 7-40 U/L Alkaline Phosphatase 99 46-116 U/L B-Type Natriuretic Peptide 29.34 0-100 pg/mL Total Protein 7.9 5.7-8.2 g/dL Albumin 4.8 3.2-4.8 g/dL POC Glucose 80 70-106 mg/dl Time of 1ST Reevaluation: 17:55 Reevaluation 1ST: Unchanged Patient Education/Counseling: Diagnosis, Treatment, Prognosis, Need For Follow Up Family Education/Counseling: No Family Present SEPSIS Sepsis Screen Date sepsis recognized/suspect: May 09, 2025 Time Sepsis recognized/suspect: 1634 Recent Procedure: No On Antibiotic Therapy: No Respiratory Rate >20: No Heart Rate >90: No Temp<36 C (96.8 F) or >38.3 C: No SBP <90 or MAP <65 mmHG: No New Acute Mental Status Change: No Is the patient on CPAP, BIPAP,: No Physician Orders Head Without Contrast (05/09/25 17:20) Chest Portable (05/09/25 17:20) Cervical Without Contrast (05/09/25 17:20) Echo 2d Mode Cardiac Dop (05/09/25 19:47) Vital Signs Date Time Temp Pulse Resp B/P (MAP) Pulse Ox O2 Delivery O2 Flow Rate FiO2 05/09/25 16:41 84 05/09/25 16:31 97.6 85 16 102/74 98 97.6 Laboratory Tests Test 05/09/25 17:36 White Blood Count 6.7 10^3/uL (4.4-10.8) Departure 1 Departure Time of Disposition: 18:00 (79-year-old male with unclear past medical history came in for a couple episodes of syncopal events which occurred today. EKG shows abnormal rhythm, however, no signs of acute ischemia. Serial troponins were obtained which remain negative. Given the syncopal event consider possible aortic stenosis, or other signs of heart failure. BNP is within normal limits CXR with no evidence of increased pulmonary vascular congestion or significant cardiomegaly to suggest new onset heart failure. Patient did have syncopal events during which he struck his head, given his age a CT of the head and cervical spine were both performed which are negative for any acute intracranial process, fractures. However, does show encephalomalacia likely related to prior CVA. CBC with no evidence of critical leukocytosis or significant anemia. Metabolic panel with no evidence of any acute electrolyte abnormalities. Given the patient's age and recurrent syncopal events will be admitted for further workup and management.) Impression: Primary Impression: UTI (urinary tract infection) Additional Impressions: CVA (cerebral vascular accident) Chronic anemia Acute CVA Acute cervical sprain Disposition: ADMITTED INPATIENT Admit to: Tele Condition: Guarded Critical Care Note Critical Care Time?: No Stability Stability form required: APURVA Barry RESIDENT May 09, 2025 17:23 FEDE GARCIA MD May 09, 2025 21:15
[2025-05-09 18:04] LABS: Hematocrit 39.7 % (41.0-53.0); Hemoglobin 13.3 g/dL (13.5-17.5); Mean Corpuscular Hemoglobin 31.8 pg (28.0-32.0); Mean Corpuscular Volume 95.2 fL (80.0-100.0); Nucleated Red Blood Cells % 0.0 %
--- NOTE | 2025-05-09 18:11 | DVH ---
CT HEAD WITHOUT CONTRAST Indication: s/p fall EXAM DATE: 05/09/2025 05:38 PM COMPARISON: CT HEAD WITHOUT CONTRAST on DOS: 09/24/23, CT HEAD WITHOUT CONTRAST on DOS: 10/26/22 TECHNIQUE: CT of the head without intravenous contrast. RADIATION DOSE: CTDIvol: 10 mGy, DLP: 1153 mGy*cm FINDINGS: Examination degraded by motion. There is no intracranial hemorrhage. There is no extra-axial fluid, mass, mass effect or midline shift. The ventricles are midline and normal in size. Basilar cisterns are patent. Right frontal, parietal and temporal encephalomalacia most pronounced in the right frontal parietal lobe. Cavum septum pellucidum. Mild periventricular and subcortical white matter chronic microvascular ischemic changes. Mild global cerebral volume loss. Left cerebellar calcifications. Left mastoid effusion.. Imaged portion of the orbits are unremarkable. IMPRESSION: No intracranial hemorrhage or mass effect. Right encephalomalacia as described. Left mastoid effusion.
[2025-05-09 18:12] LABS: Alanine Aminotransferase 13 U/L (7-40); Alkaline Phosphatase 99 U/L (46-116); Anion Gap 11 (5-15); BUN/Creatinine Ratio 14.8 (10.0-20.0); Blood Urea Nitrogen 18 mg/dL (9-23); Calcium 10.0 mg/dL (8.7-10.4); Carbon Dioxide 27 mmol/L (20-31); Chloride 101 mmol/L (98-107); Glucose 91 mg/dL (74-106); Potassium 4.8 mmol/L (3.5-5.1); Sodium 139 mmol/L (136-145); Total Protein 7.9 g/dL (5.7-8.2)
[2025-05-09 18:13] LABS: Bilirubin, Total 0.9 mg/dL (0.2-1.0)
--- NOTE | 2025-05-09 18:13 | DVH ---
CHEST RADIOGRAPH Indication: dyspnea Technique: Single frontal view of the chest was obtained. Comparison: XY CHEST PORTABLE on DOS: 06/19/24 Findings: Mildly hyperinflated lungs. No focal consolidation. No significant pleural effusion. No pneumothorax. Stable cardiomediastinal silhouette. Old left clavicular fracture. IMPRESSION: No focal consolidation.
--- NOTE | 2025-05-09 18:13 | DVH ---
Indication: s/p fall Technique: CT axial images of the cervical spine are obtained without contrast. Coronal and sagittal reformats were obtained. Radiation Dose Information: CTDI volume is 9.8 mGy. Dose-length product is 1153 mGy*cm Comparison: None FINDINGS: The cervical vertebral body heights are maintained. Cervical alignment is maintained. There is severe multilevel disc space narrowing. No prevertebral edema. Facet articulations demonstrates severe facet hypertrophic changes . The atlantooccipital, atlantoaxial articulations are intact. Moderate to severe Multilevel neural foraminal stenosis. Left mastoid effusion. IMPRESSION: Severe cervical degenerative disc disease. Severe cervical facet hypertrophic changes.
[2025-05-09 18:54] LABS: Albumin 4.8 g/dL (3.2-4.8)
[2025-05-09 19:01] LABS: INR 1.0 (0.9-1.15); Partial Thromboplastin Time 29.2 SEC (24.5-34.5); Prothrombin Time 10.6 sec (9.3-11.8)
[2025-05-09] MEDS ORDERED: ACETAMINOPHEN 325 MG TAB PO PRN (20:00)
[2025-05-09] MEDS ORDERED: MORPHINE SULFATE INJ 2 MG/ml SYRG IV PRN (20:00)
[2025-05-09] MEDS ORDERED: ALBUTEROL SULF 2.5 MG/0.5ML(0.5%) NEB SOLN NEB PRN (20:00)
[2025-05-09] MEDS ORDERED: ONDANSETRON HCL 4 MG/2 ML VIAL IV PRN (20:00)
[2025-05-09] MEDS ORDERED: NITROGLYCERIN 0.4 MG SL TAB SL PRN (20:00)
[2025-05-09 21:20] VITALS: PULSE 84
[2025-05-10] MEDS ORDERED: ENOXAPARIN SOD 40 MG/0.4 ML SYRINGE SC SCH (10:00)
== END 2025-05-09 23:06 | disposition left against medical advice (07) ==
LOC: ER 16:27
DX: N39.0 Urinary tract infection, site not specified (principal); S13.4XXA Sprain of ligaments of cervical spine, initial encounter; I63.9 Cerebral infarction, unspecified; D64.9 Anemia, unspecified; J44.89 Other specified chronic obstructive pulmonary disease; K59.00 Constipation, unspecified; E78.5 Hyperlipidemia, unspecified; Z86.73 Personal history of transient ischemic attack (TIA), and cerebral infarction without residual deficits; Z98.890 Other specified postprocedural states; Z79.899 Other long term (current) drug therapy; W18.39XA Other fall on same level, initial encounter; Y93.89 Activity, other specified; Y92.89 Other specified places as the place of occurrence of the external cause; Y99.8 Other external cause status
CPT/HCPCS: 36415; 70450; 71045; 72125; 80053; 82947; 82962; 83880; 84484; 85025; 85610; 85730; 93005